=== PATIENT | female | born 1955 | race African-American/Black ===

== ENCOUNTER 2018-08-01 19:55 | Emergency (ER) | payer MEDICAID, OTHER ==
[~2018-08-01] VITALS: Ht 167.6 cm; Wt 82.0 kg
[~2018-08-01 19:55] MED LIST: BIMA2.5D4 EACHEYE; DIPH25CA83 PO; DIVA500T3 PO; GABA-531 PO; HYDR-4134 PO; LURA80TA PO
[2018-08-01] MEDS ORDERED: SODIUM CHLORIDE 0.9% 1,000 ML IV ONE (20:38)
[2018-08-01] MEDS ORDERED: MORPHINE SULFATE 4 MG/ML CPJ (NOT FOR IM USE) IV STA (20:38)
[2018-08-01] MEDS ORDERED: ONDANSETRON HCL 4MG/2ML INJ IV STA (20:38)
[2018-08-01] MEDS ORDERED: MORPHINE SULFATE 10 MG/ML CPJ IV STA (21:22)
[2018-08-01 21:59] LABS: BASOPHILS % 0.7 % (0.0-2.0); EOSINOPHILS % 1.5 % (0.0-5.0); HEMATOCRIT. 39.6 % (36.0-48.0); HEMOGLOBIN. 13.3 g/dL (12.0-16.0); LYMPHOCYTES % 17.2 % (20.0-50.0); MEAN CORPUSCULAR HEMOGLOBIN 28.8 pg (28.0-32.0); MEAN CORPUSCULAR VOLUME 85.6 fL (81.0-99.0); MEAN PLATELET VOLUME 8.6 fl (7.4-10.4); MONOCYTES % 9.4 % (2.0-8.0); NEUTROPHILS % 71.2 % (40.0-76.0); PLATELET 302 x1000/uL (130-400); RED BLOOD CELL COUNT 4.63 mill/uL (4.2-5.4); RED CELL DISTRIBUTION WIDTH 16.4 % (11.6-14.6)
[2018-08-01 22:05] LABS: CHLORIDE 103 mEq/L (98-107)
[2018-08-01 22:08] LABS: INR 1.1; PROTHROMBIN TIME 10.8 sec (9.1-11.1)
[2018-08-01 22:09] LABS: ETHANOL BLOOD < 10 mg/dL
[2018-08-01] MEDS ORDERED: POTASSIUM CHLORIDE 20MEQ TABLET SR PO ONE (22:45)
[2018-08-01] MEDS ORDERED: POTASSIUM CHLORIDE INJ 40 MEQ in DEXT 5% WATER 250 ML IV ONE (23:00)
[2018-08-02] MEDS ORDERED: ONDANSETRON HCL 4MG/2ML INJ IV ONE (00:30)
[2018-08-02 01:21] VITALS: BP 160/87
== END 2018-08-02 03:11 | disposition short-term general hospital (02) ==
LOC: ER 19:55 → CANBEDREQ 08-02 06:00
DX: E87.6 Hypokalemia (principal); M54.9 Dorsalgia, unspecified; R11.2 Nausea with vomiting, unspecified; N17.9 Acute kidney failure, unspecified; F31.9 Bipolar disorder, unspecified; J44.9 Chronic obstructive pulmonary disease, unspecified; I10 Essential (primary) hypertension; F17.200 Nicotine dependence, unspecified, uncomplicated; F12.10 Cannabis abuse, uncomplicated; H40.9 Unspecified glaucoma; F14.10 Cocaine abuse, uncomplicated; Z90.710 Acquired absence of both cervix and uterus; Z98.890 Other specified postprocedural states; Z88.8 Allergy status to other drugs, medicaments and biological substances; Z79.899 Other long term (current) drug therapy
CPT/HCPCS: 36415; 71250; 74176; 80053; 80165; 83690; 85025; 85610; 96361; 96365; 96366; 96375; 96376; 99285; G0482; J2270; J2405; J3480; J7030; J7060

== ENCOUNTER 2018-09-22 14:29 | Emergency (ER) | payer MEDICAID, OTHER ==
[~2018-09-22] VITALS: Ht 172.7 cm; Wt 65.0 kg
[2018-09-22] MEDS ORDERED: SODIUM CHLORIDE 0.9% 1,000 ML IV ONE (22:40)
[2018-09-22] MEDS ORDERED: ONDANSETRON HCL 4MG/2ML INJ IV STA (22:40)
[2018-09-22] MEDS ORDERED: MECLIZINE 25MG TABLET PO ONE (22:45)
[2018-09-22 23:33] LABS: BASOPHILS % 1.2 % (0.0-2.0); EOSINOPHILS % 3.3 % (0.0-5.0); HEMATOCRIT. 40.9 % (36.0-48.0); HEMOGLOBIN. 13.6 g/dL (12.0-16.0); LYMPHOCYTES % 36.9 % (20.0-50.0); MEAN CORPUSCULAR VOLUME 84.4 fL (81.0-99.0); MEAN PLATELET VOLUME 7.7 fl (7.4-10.4); MONOCYTES % 11.6 % (2.0-8.0); PLATELET 368 x1000/uL (130-400); RED BLOOD CELL COUNT 4.84 mill/uL (4.2-5.4); RED CELL DISTRIBUTION WIDTH 18.7 % (11.6-14.6)
[2018-09-22 23:37] LABS: INR 1.1; PARTIAL THROMBOPLASTIN TIME 25.9 sec (23.4-31.0); PROTHROMBIN TIME 10.7 sec (9.1-11.1)
[2018-09-23 01:08] LABS: CHLORIDE 109 mEq/L (98-107)
[2018-09-23 01:12] LABS: ETHANOL BLOOD < 10 mg/dL
[2018-09-23 03:39] VITALS: BP 116/68
== END 2018-09-23 03:43 | disposition home or self-care (01) ==
LOC: ER 14:29
DX: R42 Dizziness and giddiness (principal); R55 Syncope and collapse; R11.10 Vomiting, unspecified; J44.9 Chronic obstructive pulmonary disease, unspecified; I10 Essential (primary) hypertension; F17.200 Nicotine dependence, unspecified, uncomplicated; F31.9 Bipolar disorder, unspecified; Z71.6 Tobacco abuse counseling; Z88.8 Allergy status to other drugs, medicaments and biological substances; Z90.710 Acquired absence of both cervix and uterus; Z91.013 Allergy to seafood; Z91.048 Other nonmedicinal substance allergy status
CPT/HCPCS: 36415; 70450; 71045; 80053; 80165; 83690; 83735; 83880; 84484; 85025; 85610; 85730; 87186; 93005; 96361; 96374; 99284; 99406; J2405; J7030; J8597; Z7610

== ENCOUNTER 2019-02-14 12:45 | Inpatient (IN) | payer MEDICAID ==
[~2019-02-14] VITALS: Ht 167.6 cm; Wt 80.7 kg
[2019-02-14] MEDS ORDERED: KETOROLAC 30MG/ML VIAL IV ONE (14:00)
[2019-02-14 14:24] LABS: BASOPHILS % 1.5 % (0.0-2.0); EOSINOPHILS % 2.3 % (0.0-5.0); HEMATOCRIT. 44.1 % (36.0-48.0); HEMOGLOBIN. 14.6 g/dL (12.0-16.0); LYMPHOCYTES % 25.5 % (20.0-50.0); MEAN CORPUSCULAR VOLUME 84.9 fL (81.0-99.0); MEAN PLATELET VOLUME 7.2 fl (7.4-10.4); MONOCYTES % 6.6 % (2.0-8.0); NEUTROPHILS % 64.1 % (40.0-76.0); PLATELET 527 x1000/uL (130-400)
[2019-02-14 14:31] LABS: CHLORIDE 107 mEq/L (98-107)
[2019-02-14] MEDS ORDERED: CLONIDINE 0.1MG TABLET PO PRN ×2 (15:00→16:15)
[2019-02-14 15:46] LABS: PARTIAL THROMBOPLASTIN TIME 24.3 sec (23.4-31.0); PROTHROMBIN TIME 9.8 sec (9.6-11.0)
[2019-02-14] MEDS ORDERED: ONDANSETRON HCL 4MG/2ML INJ IV PRN (16:00)
[2019-02-14] MEDS ORDERED: LACTULOSE 20G/30ML UDC PO PRN (16:00)
[2019-02-14] MEDS ORDERED: ACETAMINOPHEN 325MG TABLET PO PRN (16:00)
[2019-02-14] MEDS ORDERED: MORPHINE SULFATE 2 MG/ML CPJ (NOT FOR IM USE) IV PRN (16:00)
[2019-02-14 16:32] LABS: *AMPHETAMINES SCREEN URINE NEGATIVE (NEGATIVE); *BARBITURATES SCREEN URINE NEGATIVE (NEGATIVE); *BENZODIAZEPINES SCREEN URINE NEGATIVE (NEGATIVE)
[2019-02-14 16:33] LABS: *COCAINE SCREEN URINE PRESUMTIVE POSITIVE (NEGATIVE); CANNABINOID URINE SCREEN PRESUMTIVE POSITIVE (NEGATIVE); METHADONE URINE SCREEN NEGATIVE (NEGATIVE); OPIATES URINE SCREEN NEGATIVE (NEGATIVE); PHENCYCLIDINE URINE SCREEN NEGATIVE (NEGATIVE)
[2019-02-14 20:30] VITALS: BP 151/88
[2019-02-14] MEDS ORDERED: DEXT 5%/LACTATED RINGERS 1,000 ML IV SCH (20:30)
[2019-02-14 21:00] VITALS: BP 151/88
[2019-02-14] MEDS: DOCUSATE SODIUM 100MG CAPSULE PO SCH (22:10)
[2019-02-14] MEDS: DEXAMETHASONE 4MG/ML 1ML VIAL IV SCH (22:10)
[2019-02-14] MEDS ORDERED: POTASSIUM CHLORIDE INJ 40 MEQ in DEXT 5% WATER 250 ML IV SCH (23:00)
[2019-02-15] VITALS (64 sets, daily range): BP systolic 112–190; BP diastolic 22–131
[2019-02-15] MEDS: DEXAMETHASONE 4MG/ML 1ML VIAL IV SCH ×4 (03:49→22:10)
[2019-02-15] MEDS ORDERED: THROMBIN (BOVINE) 5000 UNITS/VIAL TOP ONE ×2 (06:33→06:34)
[2019-02-15] MEDS ORDERED: LIDOCAINE HCL/EPINEPHRINE 1%-EPI 1:100,000 20 ML VIAL ONE (06:34)
[2019-02-15] MEDS ORDERED: BACITRACIN 50,000 UNITS/VIAL ONE (06:34)
[2019-02-15] MEDS ORDERED: ROCURONIUM BROMIDE 10MG/ML VIAL 5ML IV ONE ×2 (06:59→07:03)
[2019-02-15] MEDS ORDERED: FENTANYL CITRATE/PF 50MCG/ML 2ML VIAL ONE ×3 (06:59→07:44)
[2019-02-15] MEDS ORDERED: CEFAZOLIN SODIUM 1000MG/VIAL ONE (07:00)
[2019-02-15] MEDS ORDERED: ONDANSETRON HCL 4MG/2ML INJ ONE (07:00)
[2019-02-15] MEDS ORDERED: NEOSTIGMINE METHYLSULFATE 1MG/ML 10 ML VIAL ONE (07:00)
[2019-02-15] MEDS ORDERED: SODIUM CHLORIDE 0.9% 10ML VIAL ONE (07:00)
[2019-02-15] MEDS ORDERED: MIDAZOLAM HCL 2 MG/2 ML VIAL ONE (07:00)
[2019-02-15] MEDS ORDERED: GLYCOPYRROLATE 0.2 MG/ML 2ML VIAL ONE (07:00)
[2019-02-15] MEDS ORDERED: PHENYLEPHRINE HCL 10 MG/ML 1ML (IV VIAL) IV ONE (07:00)
[2019-02-15] MEDS ORDERED: EPHEDRINE SULFATE 50MG/ML VIAL ONE (07:00)
[2019-02-15] MEDS ORDERED: PROPOFOL 200MG/20ML VIAL IV ONE ×2 (07:00→07:46)
[2019-02-15] MEDS ORDERED: SUCCINYLCHOLINE CHLORIDE 200MG/10ML IV ONE (07:00)
[2019-02-15] MEDS ORDERED: METOCLOPRAMIDE HCL 10MG/2ML VIAL ONE (07:00)
[2019-02-15] MEDS ORDERED: LIDOCAINE HCL/PF 1% 10 MG/ML 5ML VIAL ONE (07:00)
[2019-02-15] MEDS ORDERED: DEXAMETHASONE 4MG/ML 1ML VIAL ONE (07:00)
[2019-02-15] MEDS: DEXT 5%/LACTATED RINGERS 1,000 ML IV SCH ×3 (07:15→23:15)
[2019-02-15] MEDS ORDERED: LABETALOL HCL 5MG/ML VIAL 20ML IV ONE (07:27)
[2019-02-15 07:48] LABS: CHLORIDE 108 mEq/L (98-107)
[2019-02-15 07:56] LABS: BASOPHILS % 0.4 % (0.0-2.0); HEMATOCRIT. 41.3 % (36.0-48.0); HEMOGLOBIN. 13.7 g/dL (12.0-16.0); LYMPHOCYTES % 12.6 % (20.0-50.0); MEAN CORPUSCULAR HEMOGLOBIN 27.8 pg (28.0-32.0); MEAN CORPUSCULAR VOLUME 83.9 fL (81.0-99.0); MEAN PLATELET VOLUME 7.7 fl (7.4-10.4); PLATELET 520 x1000/uL (130-400); RED BLOOD CELL COUNT 4.92 mill/uL (4.2-5.4); RED CELL DISTRIBUTION WIDTH 19.3 % (11.6-14.6)
[2019-02-15] MEDS ORDERED: DIPHENHYDRAMINE 25MG CAPSULE PO PRN (08:00)
[2019-02-15] MEDS: DOCUSATE SODIUM 100MG CAPSULE PO SCH ×2 (09:00→17:26)
[2019-02-15] MEDS ORDERED: HYDRALAZINE 20MG/ML VIAL ONE (09:23)
[2019-02-15] MEDS: MORPHINE SULFATE 4 MG/ML CPJ (NOT FOR IM USE) IV PRN ×2 (09:48→14:18)
[2019-02-15] MEDS: NICARDIPINE 100 MG in SODIUM CHLORIDE 0.9% 60 ML IV PRN ×2 (10:14→17:12)
[2019-02-15] MEDS ORDERED: NALOXONE INJ IV PRN (10:45)
[2019-02-15] MEDS ORDERED: ONDANSETRON INJ IV PRN (10:45)
[2019-02-15] MEDS ORDERED: DIPHENHYDRAMINE INJ IV PRN (10:45)
[2019-02-15] MEDS: GABAPENTIN 300MG CAPSULE PO SCH ×2 (10:47→17:26)
[2019-02-15] MEDS: METOPROLOL TARTRATE 50MG TABLET PO SCH ×2 (10:47→13:51)
[2019-02-15] MEDS ORDERED: HYDROMORPHONE PCA 10MG/50ML IV PRN (11:30)
[2019-02-15] MEDS ORDERED: PNEUMOCOCCAL 23-VAL P-SAC VAC 0.5 ML IM ONE (12:00)
[2019-02-15] MEDS: LOSARTAN POTASSIUM 100 MG TABLET PO SCH ×2 (12:30→13:52)
[2019-02-15] MEDS: CEFAZOLIN 1000MG PREMIX 50 ML IV SCH ×2 (13:51→22:10)
[2019-02-15] MEDS ORDERED: CEFAZOLIN SODIUM 1000MG/VIAL IV SCH (14:00)
[2019-02-15] MEDS: AMLODIPINE 5MG TABLET PO SCH (22:09)
[2019-02-16] VITALS (90 sets, daily range): BP systolic 70–218; BP diastolic 45–210
[2019-02-16] MEDS: NICARDIPINE 100 MG in SODIUM CHLORIDE 0.9% 60 ML IV PRN ×3 (00:48→17:07)
[2019-02-16] MEDS: DEXAMETHASONE 4MG/ML 1ML VIAL IV SCH ×4 (03:19→21:53)
[2019-02-16] MEDS: MORPHINE SULFATE 4 MG/ML CPJ (NOT FOR IM USE) IV PRN ×2 (03:19→18:51)
[2019-02-16 05:34] LABS: HEMATOCRIT. 36.8 % (36.0-48.0); HEMOGLOBIN. 12.1 g/dL (12.0-16.0); MEAN CORPUSCULAR HEMOGLOBIN 27.9 pg (28.0-32.0); MEAN CORPUSCULAR VOLUME 84.4 fL (81.0-99.0); MEAN PLATELET VOLUME 7.6 fl (7.4-10.4); PLATELET 483 x1000/uL (130-400); RED BLOOD CELL COUNT 4.36 mill/uL (4.2-5.4); RED CELL DISTRIBUTION WIDTH 19.1 % (11.6-14.6)
[2019-02-16 05:44] LABS: CHLORIDE 109 mEq/L (98-107)
[2019-02-16] MEDS: CEFAZOLIN 1000MG PREMIX 50 ML IV SCH ×3 (06:41→22:07)
[2019-02-16] MEDS: DEXT 5%/LACTATED RINGERS 1,000 ML IV SCH ×3 (07:15→23:15)
[2019-02-16] MEDS: METOPROLOL TARTRATE 50MG TABLET PO SCH ×2 (07:51→21:56)
[2019-02-16] MEDS: DOCUSATE SODIUM 100MG CAPSULE PO SCH ×2 (07:51→17:06)
[2019-02-16] MEDS: GABAPENTIN 300MG CAPSULE PO SCH ×2 (07:52→17:06)
[2019-02-16] MEDS: AMLODIPINE 5MG TABLET PO SCH (07:52)
[2019-02-16] MEDS: NIFEDIPINE XL 60MG TAB PO SCH ×2 (11:04→21:54)
[2019-02-16 11:46] LABS: PLATELET ESTIMATE INCREASED
[2019-02-17] VITALS (40 sets, daily range): BP systolic 107–199; BP diastolic 19–122
[2019-02-17] MEDS: HYDROCODONE/ACETAMINOPHEN 5/325MG TABLET PO PRN (01:26)
[2019-02-17] MEDS: DEXAMETHASONE 4MG/ML 1ML VIAL IV SCH ×4 (02:39→21:29)
[2019-02-17 05:20] LABS: HEMATOCRIT. 35.9 % (36.0-48.0); HEMOGLOBIN. 11.9 g/dL (12.0-16.0); MEAN CORPUSCULAR VOLUME 84.8 fL (81.0-99.0); MEAN PLATELET VOLUME 7.8 fl (7.4-10.4); PLATELET 443 x1000/uL (130-400); RED BLOOD CELL COUNT 4.24 mill/uL (4.2-5.4); RED CELL DISTRIBUTION WIDTH 19.3 % (11.6-14.6)
[2019-02-17 05:33] LABS: CHLORIDE 109 mEq/L (98-107)
[2019-02-17] MEDS: CEFAZOLIN 1000MG PREMIX 50 ML IV SCH ×2 (05:54→14:23)
[2019-02-17] MEDS: DOCUSATE SODIUM 100MG CAPSULE PO SCH ×2 (08:34→17:17)
[2019-02-17] MEDS: NIFEDIPINE XL 60MG TAB PO SCH ×2 (08:35→21:29)
[2019-02-17] MEDS: GABAPENTIN 300MG CAPSULE PO SCH ×2 (08:36→17:17)
[2019-02-17] MEDS: LOSARTAN POTASSIUM 100 MG TABLET PO SCH (08:36)
[2019-02-17] MEDS: METOPROLOL TARTRATE 50MG TABLET PO SCH ×2 (10:34→21:29)
[2019-02-17] MEDS: DEXT 5%/LACTATED RINGERS 1,000 ML IV SCH (14:13)
[2019-02-17 15:36] LABS: PLATELET ESTIMATE INCREASED
[2019-02-18] VITALS: BP 125/67
[2019-02-18] MEDS: DEXAMETHASONE 4MG/ML 1ML VIAL IV SCH ×4 (03:14→21:22)
[2019-02-18 04:00] VITALS: BP 122/66
[2019-02-18 07:12] LABS: CHLORIDE 106 mEq/L (98-107)
[2019-02-18 07:13] LABS: BASOPHILS % 0.2 % (0.0-2.0); HEMATOCRIT. 37.9 % (36.0-48.0); HEMOGLOBIN. 12.7 g/dL (12.0-16.0); LYMPHOCYTES % 7.9 % (20.0-50.0); MEAN CORPUSCULAR HEMOGLOBIN 28.3 pg (28.0-32.0); MEAN PLATELET VOLUME 8.1 fl (7.4-10.4); MONOCYTES % 7.2 % (2.0-8.0); NEUTROPHILS % 84.7 % (40.0-76.0); PLATELET 460 x1000/uL (130-400); RED BLOOD CELL COUNT 4.51 mill/uL (4.2-5.4); RED CELL DISTRIBUTION WIDTH 19.2 % (11.6-14.6)
[2019-02-18 08:00] VITALS: BP 128/74
[2019-02-18] MEDS: GABAPENTIN 300MG CAPSULE PO SCH ×2 (08:42→16:12)
[2019-02-18] MEDS: NIFEDIPINE XL 60MG TAB PO SCH ×2 (08:43→21:22)
[2019-02-18] MEDS: DOCUSATE SODIUM 100MG CAPSULE PO SCH ×2 (08:43→16:12)
[2019-02-18] MEDS: LOSARTAN POTASSIUM 100 MG TABLET PO SCH (08:44)
[2019-02-18] MEDS: METOPROLOL TARTRATE 50MG TABLET PO SCH ×2 (08:44→21:21)
[2019-02-18 12:00] VITALS: BP 127/71
[2019-02-18 16:00] VITALS: BP 141/80
[2019-02-18] MEDS: HYDROCODONE/ACETAMINOPHEN 5/325MG TABLET PO PRN (16:13)
[2019-02-18] MEDS ORDERED: HYDROCODONE/ACETAMINOPHEN 5/325MG TABLET PO PRN (17:44)
[2019-02-18] MEDS ORDERED: LACTULOSE 20G/30ML UDC PO PRN (17:45)
[2019-02-18] MEDS: MORPHINE SULFATE 4 MG/ML CPJ (NOT FOR IM USE) IV PRN ×2 (17:45→22:01)
[2019-02-18] MEDS ORDERED: MORPHINE SULFATE 2 MG/ML CPJ (NOT FOR IM USE) IV PRN (17:45)
[2019-02-18] MEDS: FAMOTIDINE 20MG/2ML VIAL IV SCH (17:46)
[2019-02-18 20:00] VITALS: BP 128/67
[2019-02-19] VITALS: BP 126/67
[2019-02-19] MEDS: DEXAMETHASONE 4MG/ML 1ML VIAL IV SCH ×2 (03:22→09:19)
[2019-02-19] MEDS: MORPHINE SULFATE 4 MG/ML CPJ (NOT FOR IM USE) IV PRN ×2 (03:24→09:21)
[2019-02-19 04:00] VITALS: BP 116/80
[2019-02-19] MEDS: FAMOTIDINE 20MG/2ML VIAL IV SCH (09:20)
[2019-02-19] MEDS: LOSARTAN POTASSIUM 100 MG TABLET PO SCH (09:21)
[2019-02-19] MEDS: DOCUSATE SODIUM 100MG CAPSULE PO SCH (09:21)
[2019-02-19] MEDS: NIFEDIPINE XL 60MG TAB PO SCH (09:21)
[2019-02-19] MEDS: GABAPENTIN 300MG CAPSULE PO SCH (09:21)
[2019-02-19] MEDS: METOPROLOL TARTRATE 50MG TABLET PO SCH (09:22)
[2019-02-19 10:44] VITALS: BP 156/88
[2019-02-19 12:00] VITALS: BP 147/74
== END 2019-02-19 12:39 | disposition home or self-care (01) | DRG 321 ==
LOC: ER 12:57 → 5WST 14:21 → ENRESERV 19:21 → MICUNO 02-15 09:24 → 6EST 02-17 10:45
PROVIDERS: ADMIT Internal Medicine; ATTEND Internal Medicine
PROC: 0RG2071 Fusion of 2 or more Cervical Vertebral Joints with Autologous Tissue Substitute, Posterior Approach, Posterior Column, Open Approach (ICD-10-PCS; principal; 2019-02-15)
PROC: 01N10ZZ Release Cervical Nerve, Open Approach (ICD-10-PCS; 2019-02-15)
PROC: 4A11X4G Monitoring of Peripheral Nervous Electrical Activity, Intraoperative, External Approach (ICD-10-PCS; 2019-02-15)
PROC: BR101ZZ Fluoroscopy of Cervical Spine using Low Osmolar Contrast (ICD-10-PCS; 2019-02-15)
DX: M48.02 Spinal stenosis, cervical region (principal); G82.50 Quadriplegia, unspecified; G99.2 Myelopathy in diseases classified elsewhere; I10 Essential (primary) hypertension; M54.12 Radiculopathy, cervical region; E87.6 Hypokalemia; F31.9 Bipolar disorder, unspecified; F14.90 Cocaine use, unspecified, uncomplicated; F12.90 Cannabis use, unspecified, uncomplicated; F17.210 Nicotine dependence, cigarettes, uncomplicated; Z60.2 Problems related to living alone; Z90.710 Acquired absence of both cervix and uterus; Z88.8 Allergy status to other drugs, medicaments and biological substances; Z91.013 Allergy to seafood; Z91.048 Other nonmedicinal substance allergy status; Z79.899 Other long term (current) drug therapy; Z71.51 Drug abuse counseling and surveillance of drug abuser
CPT/HCPCS: 36415; 71045; 72040; 72141; 76000; 80048; 80165; 80305; 83036; 83880; 84132; 84484; 88304; 88311; 93005; 96374; 96375; 97110; 97116; 97162; 97166; 97530; 97535; 99285; C1713; J0330; J0360; J0690; J1100; J1200; J1885; J2250; J2270; J2370; J2405; J2704; J2710; J2765; J3010; J3480; J3490; J7040; J7050; J7060; J7121; L0172

== ENCOUNTER 2019-07-06 13:10 | Emergency (ER) | payer MEDICAID ==
[~2019-07-06] VITALS: Ht 162.6 cm; Wt 65.0 kg
[~2019-07-06 13:10] MED LIST changes: -HYDR-4134 PO
[2019-07-06 14:30] LABS: BASOPHILS % 1.3 % (0.0-2.0); EOSINOPHILS % 5.3 % (0.0-5.0); HEMATOCRIT. 36.2 % (36.0-48.0); HEMOGLOBIN. 12.4 g/dL (12.0-16.0); LYMPHOCYTES % 35.9 % (20.0-50.0); MEAN CORPUSCULAR HEMOGLOBIN 28.8 pg (28.0-32.0); MEAN CORPUSCULAR VOLUME 84.3 fL (81.0-99.0); MEAN PLATELET VOLUME 7.4 fl (7.4-10.4); MONOCYTES % 11.8 % (2.0-8.0); NEUTROPHILS % 45.7 % (40.0-76.0); PLATELET 362 x1000/uL (130-400); RED BLOOD CELL COUNT 4.29 mill/uL (4.2-5.4); RED CELL DISTRIBUTION WIDTH 17.9 % (11.6-14.6)
[2019-07-06 14:37] LABS: CHLORIDE 109 mEq/L (98-107); PROTHROMBIN TIME 10.2 sec (9.6-11.0)
[2019-07-06 14:47] LABS: CLARITY URINE CLEAR (CLEAR); COLOR URINE YELLOW (YELLOW); KETONES URINE NEGATIVE (NEGATIVE); LEUKOCYTE ESTERASE URINE NEGATIVE (NEGATIVE); NITRITE URINE NEGATIVE (NEGATIVE); OCCULT BLOOD URINE 1+ (NEGATIVE); PROTEIN URINE 2+ (NEGATIVE); SPECIFIC GRAVITY URINE 1.006 (1.005-1.030); UROBILINOGEN URINE 0.2 E.U./dL (0.2-1.0)
[2019-07-06] MEDS ORDERED: MINERAL OIL ENEMA 133ML PR ONE (16:15)
[2019-07-06 18:38] VITALS: BP 132/71
== END 2019-07-06 18:45 | disposition home or self-care (01) ==
LOC: ER 13:10
DX: M48.061 Spinal stenosis, lumbar region without neurogenic claudication (principal); K56.41 Fecal impaction; E88.09 Other disorders of plasma-protein metabolism, not elsewhere classified; R20.2 Paresthesia of skin; J44.9 Chronic obstructive pulmonary disease, unspecified; I10 Essential (primary) hypertension; Z90.710 Acquired absence of both cervix and uterus; Z79.899 Other long term (current) drug therapy; Z88.8 Allergy status to other drugs, medicaments and biological substances
CPT/HCPCS: 36415; 74176; 81003; 99284

== ENCOUNTER 2019-07-14 04:58 | Emergency (ER) | payer MEDICAID ==
[~2019-07-14] VITALS: Ht 167.6 cm; Wt 79.0 kg
[2019-07-14] MEDS ORDERED: KETOROLAC 30MG/ML VIAL IV STA (06:26)
[2019-07-14] MEDS ORDERED: NA PHOS,M-B/NA PHOS,DI-BA ENEMA 118ML PR ONE (06:30)
[2019-07-14] MEDS ORDERED: LACTULOSE 20G/30ML UDC PO ONE (06:30)
[2019-07-14] MEDS ORDERED: MAGNESIUM CITRATE 300ML SOLUTION PO ONE (06:30)
[2019-07-14 07:31] LABS: BASOPHILS % 0.4 % (0.0-2.0); EOSINOPHILS % 3.5 % (0.0-5.0); HEMATOCRIT. 35.7 % (36.0-48.0); HEMOGLOBIN. 12.1 g/dL (12.0-16.0); LYMPHOCYTES % 22.9 % (20.0-50.0); MEAN CORPUSCULAR HEMOGLOBIN 28.6 pg (28.0-32.0); MEAN CORPUSCULAR VOLUME 83.8 fL (81.0-99.0); MEAN PLATELET VOLUME 8.3 fl (7.4-10.4); MONOCYTES % 12.8 % (2.0-8.0); NEUTROPHILS % 60.4 % (40.0-76.0); PLATELET 349 x1000/uL (130-400); RED BLOOD CELL COUNT 4.25 mill/uL (4.2-5.4); RED CELL DISTRIBUTION WIDTH 18.1 % (11.6-14.6)
[2019-07-14 07:35] LABS: CHLORIDE 108 mEq/L (98-107); PROTHROMBIN TIME 9.8 sec (9.6-11.0)
[2019-07-14 08:06] LABS: CLARITY URINE CLEAR (CLEAR); COLOR URINE YELLOW (YELLOW); KETONES URINE NEGATIVE (NEGATIVE); LEUKOCYTE ESTERASE URINE NEGATIVE (NEGATIVE); NITRITE URINE NEGATIVE (NEGATIVE); OCCULT BLOOD URINE TRACE (NEGATIVE); PROTEIN URINE TRACE (NEGATIVE); SPECIFIC GRAVITY URINE 1.004 (1.005-1.030); UROBILINOGEN URINE 0.2 E.U./dL (0.2-1.0)
[2019-07-14 09:00] VITALS: BP 132/90
== END 2019-07-14 09:25 | disposition home or self-care (01) ==
LOC: ER 04:58
DX: R10.84 Generalized abdominal pain (principal); K59.00 Constipation, unspecified; R20.0 Anesthesia of skin; J44.9 Chronic obstructive pulmonary disease, unspecified; I10 Essential (primary) hypertension; F17.200 Nicotine dependence, unspecified, uncomplicated; M19.90 Unspecified osteoarthritis, unspecified site; Z90.710 Acquired absence of both cervix and uterus; Z79.899 Other long term (current) drug therapy; Z88.8 Allergy status to other drugs, medicaments and biological substances
CPT/HCPCS: 36415; 74176; 80053; 81003; 81025; 83690; 85025; 85610; 96374; 99284; J1885; Z7610

== ENCOUNTER 2019-11-07 10:36 | Emergency (ER) | payer MEDICARE, OTHER ==
[~2019-11-07] VITALS: Ht 172.7 cm; Wt 82.0 kg
[2019-11-07] MEDS ORDERED: ONDANSETRON HCL 4MG/2ML INJ IV STA (11:13)
[2019-11-07] MEDS ORDERED: MORPHINE SULFATE 4 MG/ML CPJ (NOT FOR IM USE) IV STA (11:13)
[2019-11-07 12:22] LABS: CHLORIDE 109 mEq/L (98-107)
[2019-11-07 12:24] LABS: BASOPHILS % 1.3 % (0.0-2.0); EOSINOPHILS % 2.7 % (0.0-5.0); HEMATOCRIT. 39.3 % (36.0-48.0); HEMOGLOBIN. 13.3 g/dL (12.0-16.0); LYMPHOCYTES % 31.4 % (20.0-50.0); MEAN CORPUSCULAR HEMOGLOBIN 28.2 pg (28.0-32.0); MEAN CORPUSCULAR VOLUME 83.4 fL (81.0-99.0); MEAN PLATELET VOLUME 8.2 fl (7.4-10.4); MONOCYTES % 10.9 % (2.0-8.0); NEUTROPHILS % 53.7 % (40.0-76.0); PLATELET 369 x1000/uL (130-400); PROTHROMBIN TIME 10.8 sec (9.6-11.0); RED BLOOD CELL COUNT 4.71 mill/uL (4.2-5.4); RED CELL DISTRIBUTION WIDTH 18.6 % (11.6-14.6)
[2019-11-07 12:26] LABS: ETHANOL BLOOD < 10 mg/dL
[2019-11-07 12:45] LABS: CLARITY URINE CLEAR (CLEAR); COLOR URINE YELLOW (YELLOW); KETONES URINE NEGATIVE (NEGATIVE); LEUKOCYTE ESTERASE URINE NEGATIVE (NEGATIVE); NITRITE URINE NEGATIVE (NEGATIVE); OCCULT BLOOD URINE TRACE (NEGATIVE); PH URINE 6.5 (4.5-8.0); PROTEIN URINE 2+ (NEGATIVE)
[2019-11-07 12:53] LABS: *AMPHETAMINES SCREEN URINE NEGATIVE (NEGATIVE); *BARBITURATES SCREEN URINE NEGATIVE (NEGATIVE); *BENZODIAZEPINES SCREEN URINE NEGATIVE (NEGATIVE); *COCAINE SCREEN URINE PRESUMTIVE POSITIVE (NEGATIVE)
[2019-11-07 12:55] LABS: OPIATES URINE SCREEN PRESUMTIVE POSITIVE (NEGATIVE)
[2019-11-07 12:56] LABS: PHENCYCLIDINE URINE SCREEN NEGATIVE (NEGATIVE)
[2019-11-07 12:57] LABS: CANNABINOID URINE SCREEN PRESUMTIVE POSITIVE (NEGATIVE); METHADONE URINE SCREEN NEGATIVE (NEGATIVE)
[2019-11-07] MEDS ORDERED: DIPHENHYDRAMINE 50MG/ML VIAL IV ONE (14:45)
[2019-11-07 14:55] VITALS: BP 159/97
== END 2019-11-07 15:48 | disposition short-term general hospital (02) ==
LOC: ER 10:36 → EDBEDREQ 11:18 → ER 15:48 → CANBEDREQ 16:36
DX: I63.9 Cerebral infarction, unspecified (principal); F14.10 Cocaine abuse, uncomplicated; I10 Essential (primary) hypertension; J44.9 Chronic obstructive pulmonary disease, unspecified; F31.9 Bipolar disorder, unspecified; Z90.710 Acquired absence of both cervix and uterus; Z79.899 Other long term (current) drug therapy; Z88.5 Allergy status to narcotic agent; Z91.013 Allergy to seafood; Z88.8 Allergy status to other drugs, medicaments and biological substances
CPT/HCPCS: 36415; 70450; 71045; 80053; 80305; 80320; 81003; 83690; 84484; 85025; 85610; 93005; 96374; 96375; 99285; J1200; J2270; J2405; G0480

== ENCOUNTER 2019-12-31 12:25 | Emergency (ER) | payer MEDICARE, OTHER ==
[~2019-12-31] VITALS: Ht 170.2 cm; Wt 74.0 kg
[2019-12-31 14:04] LABS: EOSINOPHILS % 3.1 % (0.0-5.0); HEMATOCRIT. 36.5 % (36.0-48.0); HEMOGLOBIN. 12.5 g/dL (12.0-16.0); LYMPHOCYTES % 30.4 % (20.0-50.0); MEAN CORPUSCULAR HEMOGLOBIN 29.7 pg (28.0-32.0); MEAN CORPUSCULAR VOLUME 86.4 fL (81.0-99.0); MEAN PLATELET VOLUME 8.6 fl (7.4-10.4); MONOCYTES % 13.7 % (2.0-8.0); NEUTROPHILS % 51.8 % (40.0-76.0); PLATELET 222 x1000/uL (130-400); RED BLOOD CELL COUNT 4.23 mill/uL (4.2-5.4); RED CELL DISTRIBUTION WIDTH 19.2 % (11.6-14.6)
[2019-12-31 14:08] LABS: PROTHROMBIN TIME 11.2 sec (9.6-11.0)
[2019-12-31 14:14] LABS: CHLORIDE 108 mEq/L (98-107)
[2019-12-31 14:17] LABS: ETHANOL BLOOD < 10 mg/dL
[2019-12-31 14:20] LABS: LDL CHOLESTEROL 80 mg/dL (5-100)
[2019-12-31] MEDS ORDERED: ASPIRIN 325MG EC TABLET PO ONE (16:30)
[2019-12-31 18:19] VITALS: BP 129/84
== END 2019-12-31 18:30 | disposition short-term general hospital (02) ==
LOC: ER 12:41 → EDBEDREQSVC 14:33 → EDBEDREQ 14:33 → EDBEDREQTM 14:33 → UNDOADMIN 15:51 → MICUSO 15:51 → EDBEDREQTM 15:53 → EDBEDREQ 15:53 → EDBEDREQTM 15:56 → EDBEDREQ 15:56 → ER 18:30
DX: I63.9 Cerebral infarction, unspecified (principal); I69.351 Hemiplegia and hemiparesis following cerebral infarction affecting right dominant side; I10 Essential (primary) hypertension; J44.9 Chronic obstructive pulmonary disease, unspecified; R56.9 Unspecified convulsions; R53.1 Weakness; M19.90 Unspecified osteoarthritis, unspecified site; F40.240 Claustrophobia; Z79.899 Other long term (current) drug therapy; Z90.710 Acquired absence of both cervix and uterus; Z91.013 Allergy to seafood; Z98.1 Arthrodesis status; Z88.8 Allergy status to other drugs, medicaments and biological substances; Z88.6 Allergy status to analgesic agent
CPT/HCPCS: 36415; 71045; 80053; 80320; 83721; 84484; 85025; 93005; 99285; G0480

== ENCOUNTER 2020-02-05 01:03 | Emergency (ER) | payer MEDICARE, OTHER ==
[~2020-02-05] VITALS: Ht 167.6 cm; Wt 70.0 kg
[2020-02-05 03:35] VITALS: BP 120/78
== END 2020-02-05 03:43 | disposition home or self-care (01) ==
LOC: ER 01:03
DX: R20.2 Paresthesia of skin (principal); I10 Essential (primary) hypertension; J44.9 Chronic obstructive pulmonary disease, unspecified; F31.9 Bipolar disorder, unspecified; F43.10 Post-traumatic stress disorder, unspecified; M19.90 Unspecified osteoarthritis, unspecified site; Z88.8 Allergy status to other drugs, medicaments and biological substances; Z86.73 Personal history of transient ischemic attack (TIA), and cerebral infarction without residual deficits; Z91.013 Allergy to seafood; Z90.710 Acquired absence of both cervix and uterus; Z91.048 Other nonmedicinal substance allergy status
CPT/HCPCS: 99283

== ENCOUNTER 2020-04-03 07:57 | Emergency (ER) | payer MEDICARE, OTHER ==
[~2020-04-03] VITALS: Ht 167.6 cm; Wt 74.0 kg
[2020-04-03] MEDS ORDERED: ibuprofen (08:17)
[2020-04-03] MEDS ORDERED: amlodipine (08:17)
[2020-04-03] MEDS ORDERED: atenolol (08:17)
[2020-04-03] MEDS ORDERED: aspirin (08:17)
[2020-04-03 10:44] LABS: HEMATOCRIT. 34.5 % (36.0-48.0); HEMOGLOBIN. 11.6 g/dL (12.0-16.0); MEAN CORPUSCULAR HEMOGLOBIN 28.3 pg (28.0-32.0); MEAN CORPUSCULAR VOLUME 84.1 fL (81.0-99.0); MEAN PLATELET VOLUME 8.1 fl (7.4-10.4); PLATELET 305 x1000/uL (130-400); RED CELL DISTRIBUTION WIDTH 17.9 % (11.6-14.6)
[2020-04-03 10:52] LABS: CHLORIDE 105 mEq/L (98-107)
[2020-04-03 11:01] LABS: CLARITY URINE CLEAR (CLEAR); COLOR URINE YELLOW (YELLOW); KETONES URINE NEGATIVE (NEGATIVE); LEUKOCYTE ESTERASE URINE NEGATIVE (NEGATIVE); NITRITE URINE NEGATIVE (NEGATIVE); OCCULT BLOOD URINE NEGATIVE (NEGATIVE); PROTEIN URINE TRACE (NEGATIVE); SPECIFIC GRAVITY URINE 1.005 (1.005-1.030); UROBILINOGEN URINE 0.2 E.U./dL (0.2-1.0)
[2020-04-03 12:11] LABS: PLATELET ESTIMATE NORMAL
[2020-04-03] MEDS ORDERED: MAGNESIUM HYDROXIDE 400MG/5ML 30ML UDC PO ONE (14:45)
[2020-04-03 15:00] VITALS: BP 122/78
== END 2020-04-03 15:58 | disposition home or self-care (01) ==
LOC: ER 07:57
DX: R60.0 Localized edema (principal); N28.9 Disorder of kidney and ureter, unspecified; I10 Essential (primary) hypertension; F99 Mental disorder, not otherwise specified; Z86.73 Personal history of transient ischemic attack (TIA), and cerebral infarction without residual deficits; Z88.8 Allergy status to other drugs, medicaments and biological substances; Z91.09 Other allergy status, other than to drugs and biological substances; Z90.710 Acquired absence of both cervix and uterus; Z74.01 Bed confinement status; Z91.013 Allergy to seafood
CPT/HCPCS: 36415; 71045; 80053; 81003; 85025; 93005; 93970; 99285

== ENCOUNTER 2020-04-11 12:45 | Inpatient (IN) | payer MEDICARE, OTHER ==
[2020-04-11] VITALS (13 sets, daily range): BP systolic 64–149; BP diastolic 28–81
[~2020-04-11] VITALS: Ht 160 cm; Wt 78.0 kg
[~2020-04-11 12:45] MED LIST changes: +amlodipine; +aspirin; +atenolol; +ibuprofen
[2020-04-11] MEDS ORDERED: SODIUM CHLORIDE 0.9% 1000ML BAG (SEPSIS BOLUS) IV ONE (14:15)
[2020-04-11] MEDS ORDERED: NOREPINEPHRINE 8MG/250ML PMX 250 ML IV STA (14:37)
[2020-04-11] MEDS ORDERED: PIPERACILLIN/TAZ 3.375G PREMIX 50 ML IV ONE (14:45)
[2020-04-11 15:21] LABS: BASOPHILS % 0.4 % (0.0-2.0); CHLORIDE 100 mEq/L (98-107); EOSINOPHILS % 0.5 % (0.0-5.0); LYMPHOCYTES % 7.4 % (20.0-50.0); MEAN CORPUSCULAR HEMOGLOBIN 28.1 pg (28.0-32.0); MEAN CORPUSCULAR VOLUME 86.6 fL (81.0-99.0); MONOCYTES % 7.5 % (2.0-8.0); NEUTROPHILS % 84.2 % (40.0-76.0); PROTHROMBIN TIME 10.3 sec (9.6-11.0); RED BLOOD CELL COUNT 3.57 mill/uL (4.2-5.4); RED CELL DISTRIBUTION WIDTH 17.4 % (11.6-14.6)
[2020-04-11 15:45] LABS: MEAN PLATELET VOLUME 10.1 fl (7.4-10.4); PLATELET 272 x1000/uL (130-400)
[2020-04-11 16:26] LABS: CLARITY URINE TURBID (CLEAR); COLOR URINE YELLOW (YELLOW); KETONES URINE NEGATIVE (NEGATIVE); LEUKOCYTE ESTERASE URINE 3+ (NEGATIVE); NITRITE URINE NEGATIVE (NEGATIVE); OCCULT BLOOD URINE 3+ (NEGATIVE); PH URINE 6.5 (4.5-8.0); PROTEIN URINE 2+ (NEGATIVE); SPECIFIC GRAVITY URINE 1.014 (1.005-1.030); UROBILINOGEN URINE 0.2 E.U./dL (0.2-1.0)
[2020-04-11] MEDS ORDERED: NOREPINEPHRINE 8MG/250ML PMX 250 ML IV ONE (19:45)
[2020-04-11] MEDS ORDERED: VANCOMYCIN 1250MG in DEXTROSE 5% WATER 250ML IV NR (20:00)
[2020-04-11] MEDS ORDERED: NON FORMULARY PATIENT HOME MED XX SCH ×2 (20:00)
[2020-04-11] MEDS: DIVALPROEX SODIUM 500MG DR TABLET PO SCH ×2 (20:00→21:23)
[2020-04-11] MEDS ORDERED: DOCUSATE SODIUM 100MG CAPSULE PO PRN (20:00)
[2020-04-11] MEDS ORDERED: ONDANSETRON HCL 4MG/2ML INJ IV PRN (20:00)
[2020-04-11] MEDS ORDERED: ACETAMINOPHEN 325MG TABLET PO PRN (20:00)
[2020-04-11] MEDS ORDERED: IPRATROPIUM/ALBUTEROL 0.5-3(2.5)MG/3ML NEB HHN PRN (20:00)
[2020-04-11 20:17] LABS: TOTAL IRON BINDING CAPACITY 281 ug/dL (250-450)
[2020-04-11 20:39] LABS: FERRITIN 168 ng/mL (10-291)
[2020-04-11 20:44] LABS: VITAMIN B12 SERUM 1328 pg/mL (211-911)
[2020-04-11] MEDS ORDERED: NOREPINEPHRINE 8 MG in DEXTROSE 5% WATER 250 ML IV PRN (21:00)
[2020-04-11] MEDS ORDERED: PIPERACILLIN/TAZOBACTAM 3.375 G/VIAL IV SCH (22:00)
[2020-04-11] MEDS: ASPIRIN 81MG TABLET PO SCH (22:51)
[2020-04-11] MEDS: ATORVASTATIN CALCIUM 10MG TABLET PO SCH (22:51)
[2020-04-11] MEDS: LATANOPROST 0.005% OPHTH DROPS 2.5ML EACHEYE SCH (22:51)
[2020-04-12] VITALS (62 sets, daily range): BP systolic 56–152; BP diastolic 32–108
[2020-04-12 00:39] LABS: *AMPHETAMINES SCREEN URINE NEGATIVE (NEGATIVE); *BARBITURATES SCREEN URINE NEGATIVE (NEGATIVE); *BENZODIAZEPINES SCREEN URINE NEGATIVE (NEGATIVE); *COCAINE SCREEN URINE NEGATIVE (NEGATIVE); METHADONE URINE SCREEN NEGATIVE (NEGATIVE); OPIATES URINE SCREEN NEGATIVE (NEGATIVE)
[2020-04-12 00:40] LABS: CANNABINOID URINE SCREEN NEGATIVE (NEGATIVE); PHENCYCLIDINE URINE SCREEN NEGATIVE (NEGATIVE)
[2020-04-12] MEDS ORDERED: NOREPINEPHRINE 8 MG in DEXTROSE 5% WATER 250 ML IV PRN (01:00)
[2020-04-12] MEDS: NOREPINEPHRINE 32 MG in DEXT 5% WATER 218 ML IV PRN ×2 (02:38→19:48)
[2020-04-12] MEDS: PIPERACILLIN/TAZOBACTAM 3.375 G in DEXT 5% WATER 100 ML IV SCH ×2 (05:09→17:13)
[2020-04-12 05:54] LABS: CHLORIDE 103 mEq/L (98-107)
[2020-04-12 05:56] LABS: BASOPHILS % 0.2 % (0.0-2.0); EOSINOPHILS % 0.3 % (0.0-5.0); HEMATOCRIT. 33.1 % (36.0-48.0); HEMOGLOBIN. 10.7 g/dL (12.0-16.0); LYMPHOCYTES % 7.5 % (20.0-50.0); MEAN CORPUSCULAR HEMOGLOBIN 27.9 pg (28.0-32.0); MEAN CORPUSCULAR VOLUME 86.6 fL (81.0-99.0); MEAN PLATELET VOLUME 9.4 fl (7.4-10.4); MONOCYTES % 10.5 % (2.0-8.0); NEUTROPHILS % 81.5 % (40.0-76.0); PLATELET 352 x1000/uL (130-400); RED BLOOD CELL COUNT 3.83 mill/uL (4.2-5.4); RED CELL DISTRIBUTION WIDTH 16.9 % (11.6-14.6)
[2020-04-12] MEDS ORDERED: PIPERACILLIN/TAZOBACTAM 3.375 G in DEXT 5% WATER 100 ML IV SCH (06:00)
[2020-04-12] MEDS ORDERED: SODIUM CHLORIDE 0.9% 1,000 ML IV SCH (09:00)
[2020-04-12] MEDS: DIVALPROEX SODIUM 500MG DR TABLET PO SCH ×2 (09:00→16:27)
[2020-04-12] MEDS: ASPIRIN 81MG TABLET PO SCH (09:13)
[2020-04-12 09:58] LABS: BG BASE EXCESS -7.2 mmol/L (-2.0-2.0); BG CARBOXYHEMOGLOBIN 0.9 % (0.5-1.5); BG DEOXYHEMOGLOBIN 2.8 % (0.0-5.0); BG FRACTION INSPIRED OXYGEN 28; BG HCO3 ACT 21.4 mmol/L (22.0-26.0); BG METHEMOGLOBIN 0.2 % (0.0-1.5); BG OXYGEN SATURATION 97.2 % (92.0-98.5); BG OXYHEMOGLOBIN 96.1 % (94.0-97.0); BG PCO2 57.9 mmHg (35.0-45.0); BG PH 7.185 (7.350-7.450); BG PO2 98.7 mmHg (75.0-100.0); BG SAMPLE SITE RIGHT RADIAL; BG TOTAL HEMOGLOBIN 11.5 g/dL (12.0-18.0); BG VENT MODE NASAL CANNULA
[2020-04-12] MEDS: SODIUM BICARBONATE 100 MEQ in SODIUM CHLORIDE 0.45% 900 ML IV SCH (12:53)
[2020-04-12] MEDS: ATORVASTATIN CALCIUM 10MG TABLET PO SCH (21:31)
[2020-04-12] MEDS: LATANOPROST 0.005% OPHTH DROPS 2.5ML EACHEYE SCH (21:31)
[2020-04-12] MEDS ORDERED: PHENYLEPHRINE 100 MG in DEXT 5% WATER 240 ML IV PRN (22:45)
[2020-04-13] VITALS (66 sets, daily range): BP systolic 97–178; BP diastolic 48–81
[2020-04-13] MEDS: SODIUM BICARBONATE 100 MEQ in SODIUM CHLORIDE 0.45% 900 ML IV SCH (03:35)
[2020-04-13] MEDS: PIPERACILLIN/TAZOBACTAM 3.375 G in DEXT 5% WATER 100 ML IV SCH ×2 (05:19→17:34)
[2020-04-13 06:29] LABS: BASOPHILS % 0.3 % (0.0-2.0); EOSINOPHILS % 2.8 % (0.0-5.0); HEMATOCRIT. 28.8 % (36.0-48.0); HEMOGLOBIN. 9.4 g/dL (12.0-16.0); LYMPHOCYTES % 10.6 % (20.0-50.0); MEAN CORPUSCULAR HEMOGLOBIN 27.7 pg (28.0-32.0); MEAN CORPUSCULAR VOLUME 85.3 fL (81.0-99.0); MEAN PLATELET VOLUME 8.9 fl (7.4-10.4); MONOCYTES % 13.5 % (2.0-8.0); NEUTROPHILS % 72.8 % (40.0-76.0); PLATELET 290 x1000/uL (130-400); RED BLOOD CELL COUNT 3.38 mill/uL (4.2-5.4); RED CELL DISTRIBUTION WIDTH 16.6 % (11.6-14.6)
[2020-04-13 06:32] LABS: PHOSPHORUS 5.7 mg/dL (2.5-4.9)
[2020-04-13] MEDS: SODIUM CHLORIDE 0.9% 1,000 ML IV SCH ×2 (08:40→22:04)
[2020-04-13] MEDS: ASPIRIN 81MG TABLET PO SCH (08:40)
[2020-04-13] MEDS: DIVALPROEX SODIUM 500MG DR TABLET PO SCH ×2 (08:41→09:00)
[2020-04-13] MEDS: MIDODRINE HCL 5MG TABLET PO SCH ×3 (08:41→22:00)
[2020-04-13] MEDS ORDERED: ALBUMIN HUMAN 25GM/100ML (25%) IV SCH (09:00)
[2020-04-13] MEDS ORDERED: POTASSIUM CHLORIDE INJ 40 MEQ in DEXT 5% WATER 250 ML IV SCH (10:00)
[2020-04-13] MEDS ORDERED: VANCOMYCIN 1 G PREMIX 200 ML IV NR (11:30)
[2020-04-13] MEDS: CLONIDINE 0.1MG TABLET PO PRN (19:03)
[2020-04-13] MEDS: HYDROCODONE/ACETAMINOPHEN 5/325MG TABLET PO PRN (20:19)
[2020-04-13] MEDS: ATORVASTATIN CALCIUM 10MG TABLET PO SCH (20:51)
[2020-04-13] MEDS: LATANOPROST 0.005% OPHTH DROPS 2.5ML EACHEYE SCH (20:51)
[2020-04-13] MEDS: DIPHENHYDRAMINE 50MG/ML VIAL IV PRN (22:02)
[2020-04-14] VITALS (91 sets, daily range): BP systolic 134–200; BP diastolic 61–82
[2020-04-14] MEDS: HYDROCODONE/ACETAMINOPHEN 5/325MG TABLET PO PRN ×2 (00:32→11:46)
[2020-04-14] MEDS: CLONIDINE 0.1MG TABLET PO PRN ×2 (01:00→17:26)
[2020-04-14] MEDS: DIPHENHYDRAMINE 50MG/ML VIAL IV PRN ×2 (04:26→13:51)
[2020-04-14] MEDS: NICARDIPINE 50 MG in SODIUM CHLORIDE 0.9% 230 ML IV PRN ×2 (04:30→13:32)
[2020-04-14 04:44] LABS: BASOPHILS % 0.2 % (0.0-2.0); EOSINOPHILS % 1.7 % (0.0-5.0); HEMATOCRIT. 29.9 % (36.0-48.0); HEMOGLOBIN. 9.9 g/dL (12.0-16.0); LYMPHOCYTES % 12.4 % (20.0-50.0); MEAN CORPUSCULAR HEMOGLOBIN 27.8 pg (28.0-32.0); MEAN CORPUSCULAR VOLUME 84.4 fL (81.0-99.0); MEAN PLATELET VOLUME 8.7 fl (7.4-10.4); MONOCYTES % 11.5 % (2.0-8.0); NEUTROPHILS % 74.2 % (40.0-76.0); PLATELET 298 x1000/uL (130-400); RED BLOOD CELL COUNT 3.55 mill/uL (4.2-5.4); RED CELL DISTRIBUTION WIDTH 17.1 % (11.6-14.6)
[2020-04-14 04:53] LABS: CHLORIDE 110 mEq/L (98-107)
[2020-04-14 05:00] LABS: AMYLASE 44 IU/L (25-115)
[2020-04-14 05:03] LABS: PHOSPHORUS 2.2 mg/dL (2.5-4.9)
[2020-04-14 05:05] LABS: CREATINE KINASE 91 IU/L (26-192)
[2020-04-14] MEDS: MIDODRINE HCL 5MG TABLET PO SCH (06:00)
[2020-04-14] MEDS: PIPERACILLIN/TAZOBACTAM 3.375 G in DEXT 5% WATER 100 ML IV SCH ×4 (06:25→23:45)
[2020-04-14] MEDS: SODIUM CHLORIDE 0.9% 1,000 ML IV SCH ×2 (07:48→11:47)
[2020-04-14] MEDS: ASPIRIN 81MG TABLET PO SCH (09:41)
[2020-04-14] MEDS ORDERED: MAGNESIUM 2 G PREMIX 50 ML IV SCH (10:00)
[2020-04-14] MEDS ORDERED: POTASSIUM PHOS,M-BASIC-D-BASIC 15 MMOL in DEXT 5% WATER 245 ML IV SCH (10:00)
[2020-04-14] MEDS ORDERED: LORAZEPAM 2MG/ML CPJ IV PRN (10:45)
[2020-04-14 11:27] LABS: BG BASE EXCESS 2.2 mmol/L (-2.0-2.0); BG CARBOXYHEMOGLOBIN 0.3 % (0.5-1.5); BG DEOXYHEMOGLOBIN 11.3 % (0.0-5.0); BG FRACTION INSPIRED OXYGEN 21; BG HCO3 ACT 27.3 mmol/L (22.0-26.0); BG METHEMOGLOBIN 0.1 % (0.0-1.5); BG OXYGEN SATURATION 88.7 % (92.0-98.5); BG OXYHEMOGLOBIN 88.3 % (94.0-97.0); BG PCO2 44.4 mmHg (35.0-45.0); BG PH 7.406 (7.350-7.450); BG PO2 55.9 mmHg (75.0-100.0); BG SAMPLE SITE RIGHT RADIAL; BG TOTAL HEMOGLOBIN 10.2 g/dL (12.0-18.0); BG VENT MODE ROOM AIR
[2020-04-14] MEDS: ENOXAPARIN 40MG/0.4ML SYR SUBCUT SCH (11:46)
[2020-04-14] MEDS: IRON SUCROSE COMPLEX 100 MG/5 ML ML IV SCH (11:47)
[2020-04-14] MEDS: LOSARTAN POTASSIUM 50 MG TABLET PO SCH ×2 (13:51→21:55)
[2020-04-14] MEDS ORDERED: DILTIAZEM HCL 30MG TABLET PO SCH (14:00)
[2020-04-14] MEDS ORDERED: POTASSIUM CHLORIDE INJ 40 MEQ in DEXT 5% WATER 250 ML IV SCH (15:00)
[2020-04-14] MEDS: DILTIAZEM HCL 60MG TABLET PO SCH ×2 (18:34→21:22)
[2020-04-14] MEDS ORDERED: LOSARTAN POTASSIUM 50 MG TABLET PO SCH (21:00)
[2020-04-14] MEDS ORDERED: LISINOPRIL 10MG TABLET PO SCH (21:00)
[2020-04-14] MEDS: ATORVASTATIN CALCIUM 10MG TABLET PO SCH (21:21)
[2020-04-14] MEDS: LATANOPROST 0.005% OPHTH DROPS 2.5ML EACHEYE SCH (21:21)
[2020-04-14] MEDS ORDERED: DILTIAZEM HCL 30MG TABLET PO NR (22:45)
[2020-04-15] VITALS (55 sets, daily range): BP systolic 117–203; BP diastolic 55–87
[2020-04-15 01:22] LABS: T4 FREE 1.85 ng/dL (0.76-1.46)
[2020-04-15 01:35] LABS: FOLIC ACID (FOLATE) SERUM 5.7 ng/mL (>5.38)
[2020-04-15] MEDS: HALOPERIDOL 0.5MG TABLET PO PRN (02:11)
[2020-04-15] MEDS: DILTIAZEM HCL 90MG TABLET PO SCH ×4 (05:21→23:54)
[2020-04-15] MEDS: PIPERACILLIN/TAZOBACTAM 3.375 G in DEXT 5% WATER 100 ML IV SCH ×4 (05:33→23:09)
[2020-04-15 05:50] LABS: BASOPHILS % 0.6 % (0.0-2.0); HEMATOCRIT. 30.4 % (36.0-48.0); HEMOGLOBIN. 10.2 g/dL (12.0-16.0); MEAN CORPUSCULAR HEMOGLOBIN 27.9 pg (28.0-32.0); MEAN CORPUSCULAR VOLUME 83.5 fL (81.0-99.0); MEAN PLATELET VOLUME 8.3 fl (7.4-10.4); MONOCYTES % 11.8 % (2.0-8.0); NEUTROPHILS % 74.6 % (40.0-76.0); PLATELET 329 x1000/uL (130-400); RED BLOOD CELL COUNT 3.65 mill/uL (4.2-5.4); RED CELL DISTRIBUTION WIDTH 17.1 % (11.6-14.6)
[2020-04-15 05:54] LABS: CHLORIDE 111 mEq/L (98-107)
[2020-04-15 06:00] LABS: PHOSPHORUS 2.7 mg/dL (2.5-4.9)
[2020-04-15] MEDS: NICARDIPINE 50 MG in SODIUM CHLORIDE 0.9% 230 ML IV PRN (07:00)
[2020-04-15] MEDS: ASPIRIN 81MG TABLET PO SCH (07:39)
[2020-04-15] MEDS: LOSARTAN POTASSIUM 50 MG TABLET PO SCH ×2 (07:39→20:29)
[2020-04-15] MEDS: CLONIDINE 0.1MG TABLET PO PRN (07:39)
[2020-04-15] MEDS: SODIUM CHLORIDE 0.9% 1,000 ML IV SCH (08:03)
[2020-04-15] MEDS: ENOXAPARIN 40MG/0.4ML SYR SUBCUT SCH (11:00)
[2020-04-15] MEDS: IRON SUCROSE COMPLEX 100 MG/5 ML ML IV SCH (11:30)
[2020-04-15] MEDS: HYDROCODONE/ACETAMINOPHEN 5/325MG TABLET PO PRN (13:04)
[2020-04-15] MEDS: DIPHENHYDRAMINE 50MG/ML VIAL IV PRN (13:05)
[2020-04-15] MEDS ORDERED: GADOBENATE DIMEGLUMINE 529 MG/ML 10ML IV ONE (13:51)
[2020-04-15] MEDS ORDERED: MAGNESIUM 4 G PREMIX 100 ML IV NR (15:00)
[2020-04-15] MEDS: LATANOPROST 0.005% OPHTH DROPS 2.5ML EACHEYE SCH (20:28)
[2020-04-15] MEDS: DOXAZOSIN MESYLATE 2MG TABLET PO SCH (20:29)
[2020-04-15] MEDS: ATORVASTATIN CALCIUM 10MG TABLET PO SCH (20:29)
[2020-04-16 00:18] VITALS: BP 110/65
[2020-04-16 04:00] VITALS: BP 134/71
[2020-04-16] MEDS: SODIUM CHLORIDE 0.9% 1,000 ML IV SCH (04:03)
[2020-04-16] MEDS: PIPERACILLIN/TAZOBACTAM 3.375 G in DEXT 5% WATER 100 ML IV SCH ×3 (05:00→18:33)
[2020-04-16] MEDS: DILTIAZEM HCL 90MG TABLET PO SCH ×3 (05:26→18:33)
[2020-04-16 05:55] LABS: BASOPHILS % 0.3 % (0.0-2.0); EOSINOPHILS % 2.7 % (0.0-5.0); HEMATOCRIT. 27.7 % (36.0-48.0); HEMOGLOBIN. 9.2 g/dL (12.0-16.0); LYMPHOCYTES % 13.7 % (20.0-50.0); MEAN CORPUSCULAR HEMOGLOBIN 27.6 pg (28.0-32.0); MEAN CORPUSCULAR VOLUME 83.3 fL (81.0-99.0); MEAN PLATELET VOLUME 7.9 fl (7.4-10.4); MONOCYTES % 12.8 % (2.0-8.0); NEUTROPHILS % 70.5 % (40.0-76.0); PLATELET 311 x1000/uL (130-400); RED BLOOD CELL COUNT 3.32 mill/uL (4.2-5.4); RED CELL DISTRIBUTION WIDTH 16.7 % (11.6-14.6)
[2020-04-16 08:00] VITALS: BP 130/63
[2020-04-16 08:08] LABS: CHLORIDE 108 mEq/L (98-107)
[2020-04-16] MEDS: LOSARTAN POTASSIUM 50 MG TABLET PO SCH ×2 (08:08→21:23)
[2020-04-16] MEDS: ASPIRIN 81MG TABLET PO SCH (08:08)
[2020-04-16] MEDS: ACETAMINOPHEN 325MG TABLET PO PRN (08:08)
[2020-04-16 08:16] LABS: PHOSPHORUS 2.8 mg/dL (2.5-4.9)
[2020-04-16] MEDS ORDERED: POTASSIUM CHLORIDE 20MEQ TABLET SR PO SCH (09:00)
[2020-04-16] MEDS ORDERED: POTASSIUM CHLORIDE INJ 40 MEQ in DEXT 5% WATER 250 ML IV SCH (10:00)
[2020-04-16] MEDS ORDERED: IRON SUCROSE COMPLEX 100 MG/5 ML ML IV SCH (11:30)
[2020-04-16 12:00] VITALS: BP 132/76
[2020-04-16] MEDS: IRON SUCROSE COMPLEX 100 MG/5 ML ML IV SCH (12:54)
[2020-04-16] MEDS: ENOXAPARIN 40MG/0.4ML SYR SUBCUT SCH (12:55)
[2020-04-16 15:51] VITALS: BP 128/69
[2020-04-16 20:37] VITALS: BP 132/68
[2020-04-16] MEDS: LATANOPROST 0.005% OPHTH DROPS 2.5ML EACHEYE SCH (21:22)
[2020-04-16] MEDS: DOXAZOSIN MESYLATE 2MG TABLET PO SCH (21:23)
[2020-04-16] MEDS: DIPHENHYDRAMINE 50MG/ML VIAL IV PRN (21:24)
[2020-04-16] MEDS: ATORVASTATIN CALCIUM 10MG TABLET PO SCH (21:24)
[2020-04-17 00:19] VITALS: BP 134/68
[2020-04-17] MEDS: DILTIAZEM HCL 90MG TABLET PO SCH ×4 (01:58→18:29)
[2020-04-17] MEDS: SODIUM CHLORIDE 0.9% 1,000 ML IV SCH ×2 (02:02→12:49)
[2020-04-17 04:00] VITALS: BP 117/62
[2020-04-17 07:34] LABS: BASOPHILS % 0.5 % (0.0-2.0); EOSINOPHILS % 2.5 % (0.0-5.0); HEMATOCRIT. 29.5 % (36.0-48.0); HEMOGLOBIN. 9.8 g/dL (12.0-16.0); LYMPHOCYTES % 13.8 % (20.0-50.0); MEAN CORPUSCULAR VOLUME 84.2 fL (81.0-99.0); MONOCYTES % 10.9 % (2.0-8.0); NEUTROPHILS % 72.3 % (40.0-76.0); PLATELET 362 x1000/uL (130-400); RED BLOOD CELL COUNT 3.51 mill/uL (4.2-5.4); RED CELL DISTRIBUTION WIDTH 17.2 % (11.6-14.6)
[2020-04-17 08:00] VITALS: BP 143/68
[2020-04-17 08:15] LABS: CHLORIDE 110 mEq/L (98-107)
[2020-04-17 08:35] LABS: PHOSPHORUS 2.8 mg/dL (2.5-4.9)
[2020-04-17] MEDS: ASPIRIN 81MG TABLET PO SCH (09:03)
[2020-04-17] MEDS: LOSARTAN POTASSIUM 50 MG TABLET PO SCH ×2 (09:03→21:24)
[2020-04-17] MEDS: ACETAMINOPHEN 325MG TABLET PO PRN ×2 (09:04→21:27)
[2020-04-17] MEDS: ENOXAPARIN 40MG/0.4ML SYR SUBCUT SCH (11:31)
[2020-04-17 12:00] VITALS: BP 149/74
[2020-04-17] MEDS: HALOPERIDOL 0.5MG TABLET PO PRN ×2 (12:47→21:25)
[2020-04-17] MEDS: BISACODYL 10MG SUPP PR SCH (13:00)
[2020-04-17] MEDS ORDERED: DILT360C27 MT (14:25)
[2020-04-17] MEDS ORDERED: LOSA50TA3 PO (14:25)
[2020-04-17] MEDS ORDERED: ASPI-1160 PO (14:25)
[2020-04-17] MEDS ORDERED: DOXA2TAB PO (14:25)
[2020-04-17] MEDS ORDERED: ATOR10TA PO (14:25)
[2020-04-17] MEDS ORDERED: FERR325T6 MT (14:30)
[2020-04-17 16:19] VITALS: BP 140/72
[2020-04-17 20:05] VITALS: BP 146/64
[2020-04-17] MEDS: LATANOPROST 0.005% OPHTH DROPS 2.5ML EACHEYE SCH (21:23)
[2020-04-17] MEDS: MAGNESIUM OXIDE 400MG TABLET PO SCH (21:24)
[2020-04-17] MEDS: DOXAZOSIN MESYLATE 2MG TABLET PO SCH (21:24)
[2020-04-17] MEDS: ATORVASTATIN CALCIUM 10MG TABLET PO SCH (21:24)
[2020-04-17] MEDS: POLYETHYLENE GLYCOL 3350 (17GM) 1 DOSE PACK PO SCH (21:25)
[2020-04-18 00:31] VITALS: BP 142/52
[2020-04-18] MEDS: DILTIAZEM HCL 90MG TABLET PO SCH ×4 (00:35→17:49)
[2020-04-18 04:00] VITALS: BP 108/66
[2020-04-18 08:05] VITALS: BP 127/63
[2020-04-18] MEDS: ASPIRIN 81MG TABLET PO SCH (08:58)
[2020-04-18] MEDS: MAGNESIUM OXIDE 400MG TABLET PO SCH ×2 (08:58→20:37)
[2020-04-18] MEDS: BISACODYL 10MG SUPP PR SCH (09:00)
[2020-04-18] MEDS: LOSARTAN POTASSIUM 50 MG TABLET PO SCH ×2 (09:00→20:38)
[2020-04-18] MEDS: ACETAMINOPHEN 325MG TABLET PO PRN ×2 (10:26→15:25)
[2020-04-18] MEDS: ENOXAPARIN 40MG/0.4ML SYR SUBCUT SCH (11:39)
[2020-04-18 12:07] VITALS: BP 129/72
[2020-04-18] MEDS ORDERED: DOXA2TAB MT (12:25)
[2020-04-18] MEDS ORDERED: DILT360C27 MT (12:25)
[2020-04-18] MEDS ORDERED: ASPI-1158 MT (12:25)
[2020-04-18] MEDS ORDERED: FERR325T6 MT (12:25)
[2020-04-18] MEDS ORDERED: ATOR10TA69 MT (12:25)
[2020-04-18] MEDS ORDERED: LOSA50TA41 MT (12:25)
[2020-04-18] MEDS: SODIUM CHLORIDE 0.9% 1,000 ML IV SCH (14:39)
[2020-04-18] MEDS: DIPHENHYDRAMINE 50MG/ML VIAL IV PRN (15:25)
[2020-04-18 16:08] VITALS: BP 122/64
[2020-04-18 20:05] VITALS: BP 103/58
[2020-04-18] MEDS: LATANOPROST 0.005% OPHTH DROPS 2.5ML EACHEYE SCH (20:36)
[2020-04-18] MEDS: HALOPERIDOL 0.5MG TABLET PO PRN (20:37)
[2020-04-18] MEDS: POLYETHYLENE GLYCOL 3350 (17GM) 1 DOSE PACK PO SCH (20:38)
[2020-04-18] MEDS: DOXAZOSIN MESYLATE 2MG TABLET PO SCH (20:38)
[2020-04-18] MEDS: ATORVASTATIN CALCIUM 10MG TABLET PO SCH (20:38)
[2020-04-19 00:48] VITALS: BP 123/67
[2020-04-19] MEDS: DILTIAZEM HCL 90MG TABLET PO SCH ×4 (00:50→18:27)
[2020-04-19 04:00] VITALS: BP 109/61
[2020-04-19 06:17] LABS: BASOPHILS % 0.5 % (0.0-2.0); EOSINOPHILS % 2.4 % (0.0-5.0); HEMATOCRIT. 28.8 % (36.0-48.0); HEMOGLOBIN. 9.6 g/dL (12.0-16.0); LYMPHOCYTES % 15.5 % (20.0-50.0); MEAN CORPUSCULAR HEMOGLOBIN 27.7 pg (28.0-32.0); MEAN CORPUSCULAR VOLUME 83.4 fL (81.0-99.0); MEAN PLATELET VOLUME 8.1 fl (7.4-10.4); MONOCYTES % 9.8 % (2.0-8.0); NEUTROPHILS % 71.8 % (40.0-76.0); PLATELET 426 x1000/uL (130-400); RED BLOOD CELL COUNT 3.46 mill/uL (4.2-5.4); RED CELL DISTRIBUTION WIDTH 17.2 % (11.6-14.6)
[2020-04-19 06:49] LABS: CHLORIDE 111 mEq/L (98-107)
[2020-04-19 06:57] LABS: PHOSPHORUS 3.5 mg/dL (2.5-4.9)
[2020-04-19 08:00] VITALS: BP 124/71
[2020-04-19] MEDS: BISACODYL 10MG SUPP PR SCH (09:06)
[2020-04-19] MEDS: LOSARTAN POTASSIUM 50 MG TABLET PO SCH ×2 (09:06→21:04)
[2020-04-19] MEDS: MAGNESIUM OXIDE 400MG TABLET PO SCH ×2 (09:06→21:04)
[2020-04-19] MEDS: ASPIRIN 81MG TABLET PO SCH (09:06)
[2020-04-19] MEDS: ACETAMINOPHEN 325MG TABLET PO PRN (09:16)
[2020-04-19] MEDS: ENOXAPARIN 40MG/0.4ML SYR SUBCUT SCH (11:43)
[2020-04-19 12:38] VITALS: BP 114/82
[2020-04-19 15:00] VITALS: BP 131/75
[2020-04-19] MEDS ORDERED: LORAZEPAM 2MG/ML CPJ IV NR (15:15)
[2020-04-19] MEDS ORDERED: GADOBENATE DIMEGLUMINE 529 MG/ML 10ML IV ONE (15:43)
[2020-04-19 20:40] VITALS: BP 118/61
[2020-04-19] MEDS: POLYETHYLENE GLYCOL 3350 (17GM) 1 DOSE PACK PO SCH (21:00)
[2020-04-19] MEDS: ATORVASTATIN CALCIUM 10MG TABLET PO SCH (21:04)
[2020-04-19] MEDS: DOXAZOSIN MESYLATE 2MG TABLET PO SCH (21:04)
[2020-04-19] MEDS: LATANOPROST 0.005% OPHTH DROPS 2.5ML EACHEYE SCH (21:05)
[2020-04-20] VITALS: BP 118/64
[2020-04-20] MEDS ORDERED: MEROPENEM 1,000 MG in SODIUM CHLORIDE 0.9% 100 ML IV SCH ×2
[2020-04-20 00:08] LABS: CLARITY URINE CLOUDY (CLEAR); COLOR URINE YELLOW (YELLOW); KETONES URINE NEGATIVE (NEGATIVE); LEUKOCYTE ESTERASE URINE 3+ (NEGATIVE); NITRITE URINE NEGATIVE (NEGATIVE); OCCULT BLOOD URINE 2+ (NEGATIVE); PH URINE 7.5 (4.5-8.0); PROTEIN URINE 2+ (NEGATIVE); SPECIFIC GRAVITY URINE 1.012 (1.005-1.030); UROBILINOGEN URINE 0.2 E.U./dL (0.2-1.0)
[2020-04-20] MEDS: MEROPENEM 500 MG in SODIUM CHLORIDE 0.9% 50 ML IV SCH ×3 (00:52→16:16)
[2020-04-20] MEDS: DILTIAZEM HCL 90MG TABLET PO SCH ×3 (00:52→17:04)
[2020-04-20 04:00] VITALS: BP 118/67
[2020-04-20 08:00] VITALS: BP 122/67
[2020-04-20] MEDS: MAGNESIUM OXIDE 400MG TABLET PO SCH ×2 (08:45→21:40)
[2020-04-20] MEDS: ASPIRIN 81MG TABLET PO SCH (08:45)
[2020-04-20] MEDS: LOSARTAN POTASSIUM 50 MG TABLET PO SCH ×2 (08:46→21:40)
[2020-04-20] MEDS: BISACODYL 10MG SUPP PR SCH (08:46)
[2020-04-20 08:47] LABS: EOSINOPHILS % 2.2 % (0.0-5.0); HEMATOCRIT. 29.1 % (36.0-48.0); HEMOGLOBIN. 9.5 g/dL (12.0-16.0); LYMPHOCYTES % 13.5 % (20.0-50.0); MEAN CORPUSCULAR HEMOGLOBIN 27.3 pg (28.0-32.0); MEAN CORPUSCULAR VOLUME 83.6 fL (81.0-99.0); MEAN PLATELET VOLUME 7.6 fl (7.4-10.4); MONOCYTES % 9.8 % (2.0-8.0); NEUTROPHILS % 73.5 % (40.0-76.0); PLATELET 512 x1000/uL (130-400); RED BLOOD CELL COUNT 3.47 mill/uL (4.2-5.4); RED CELL DISTRIBUTION WIDTH 17.6 % (11.6-14.6)
[2020-04-20 08:55] LABS: CHLORIDE 109 mEq/L (98-107)
[2020-04-20 09:01] LABS: PHOSPHORUS 3.6 mg/dL (2.5-4.9)
[2020-04-20] MEDS: ENOXAPARIN 40MG/0.4ML SYR SUBCUT SCH (10:55)
[2020-04-20 12:00] VITALS: BP 153/76
[2020-04-20 16:00] VITALS: BP 123/60
[2020-04-20] MEDS: ACETAMINOPHEN 325MG TABLET PO PRN (16:16)
[2020-04-20 20:28] VITALS: BP 100/52
[2020-04-20] MEDS: DOXAZOSIN MESYLATE 2MG TABLET PO SCH (21:00)
[2020-04-20] MEDS: POLYETHYLENE GLYCOL 3350 (17GM) 1 DOSE PACK PO SCH (21:00)
[2020-04-20] MEDS: ATORVASTATIN CALCIUM 10MG TABLET PO SCH (21:40)
[2020-04-20] MEDS: LATANOPROST 0.005% OPHTH DROPS 2.5ML EACHEYE SCH (21:42)
[2020-04-21] VITALS (7 sets, daily range): BP systolic 110–136; BP diastolic 58–78
[2020-04-21] MEDS: DILTIAZEM HCL 90MG TABLET PO SCH ×3 (00:10→14:29)
[2020-04-21] MEDS: MEROPENEM 500 MG in SODIUM CHLORIDE 0.9% 50 ML IV SCH ×2 (00:15→09:40)
[2020-04-21] MEDS: GABAPENTIN 100MG CAPSULE PO SCH ×2 (05:01→14:29)
[2020-04-21] MEDS: BISACODYL 10MG SUPP PR SCH (09:00)
[2020-04-21] MEDS: ASPIRIN 81MG TABLET PO SCH (09:37)
[2020-04-21] MEDS: ACETAMINOPHEN 325MG TABLET PO PRN (09:38)
[2020-04-21] MEDS: MAGNESIUM OXIDE 400MG TABLET PO SCH (09:39)
[2020-04-21] MEDS: LOSARTAN POTASSIUM 50 MG TABLET PO SCH (14:30)
[2020-04-21] MEDS: ENOXAPARIN 40MG/0.4ML SYR SUBCUT SCH (14:32)
== END 2020-04-21 21:10 | disposition home health service (06) | DRG 720 ==
LOC: ER 12:45 → CVICU 17:38 → EDBEDREQTM 17:44 → EDBEDREQ 17:44 → EDBEDREQSVC 17:45 → CANRESERV 18:19 → ENRESERV 18:19 → CVICU 21:49 → 6WST 04-15 19:05
PROVIDERS: ADMIT Internal Medicine; ATTEND Internal Medicine
PROC: 02HV33Z Insertion of Infusion Device into Superior Vena Cava, Percutaneous Approach (ICD-10-PCS; principal; 2020-04-11)
PROC: B548ZZA Ultrasonography of Superior Vena Cava, Guidance (ICD-10-PCS; 2020-04-11)
DX: A41.51 Sepsis due to Escherichia coli [E. coli] (principal); E46 Unspecified protein-calorie malnutrition; R65.21 Severe sepsis with septic shock; N39.0 Urinary tract infection, site not specified; K85.90 Acute pancreatitis without necrosis or infection, unspecified; E87.4 Mixed disorder of acid-base balance; K52.9 Noninfective gastroenteritis and colitis, unspecified; N18.9 Chronic kidney disease, unspecified; N17.9 Acute kidney failure, unspecified; J18.1 Lobar pneumonia, unspecified organism; D64.9 Anemia, unspecified; E27.9 Disorder of adrenal gland, unspecified; E78.00 Pure hypercholesterolemia, unspecified; E86.9 Volume depletion, unspecified; E87.1 Hypo-osmolality and hyponatremia; E87.6 Hypokalemia; F10.20 Alcohol dependence, uncomplicated; F14.10 Cocaine abuse, uncomplicated; F29 Unspecified psychosis not due to a substance or known physiological condition; F31.9 Bipolar disorder, unspecified; G82.50 Quadriplegia, unspecified; G92 Toxic encephalopathy; I12.9 Hypertensive chronic kidney disease with stage 1 through stage 4 chronic kidney disease, or unspecified chronic kidney disease; I63.9 Cerebral infarction, unspecified; J96.91 Respiratory failure, unspecified with hypoxia; K57.30 Diverticulosis of large intestine without perforation or abscess without bleeding; K59.2 Neurogenic bowel, not elsewhere classified; K80.20 Calculus of gallbladder without cholecystitis without obstruction; M46.46 Discitis, unspecified, lumbar region; M47.896 Other spondylosis, lumbar region; M48.02 Spinal stenosis, cervical region; M48.04 Spinal stenosis, thoracic region; M48.061 Spinal stenosis, lumbar region without neurogenic claudication; M46.26 Osteomyelitis of vertebra, lumbar region; N20.0 Calculus of kidney; N28.1 Cyst of kidney, acquired; N31.9 Neuromuscular dysfunction of bladder, unspecified; J91.8 Pleural effusion in other conditions classified elsewhere; L89.616 Pressure-induced deep tissue damage of right heel; L89.896 Pressure-induced deep tissue damage of other site; I73.9 Peripheral vascular disease, unspecified; Z16.12 Extended spectrum beta lactamase (ESBL) resistance; I34.0 Nonrheumatic mitral (valve) insufficiency; Z51.5 Encounter for palliative care; Z74.01 Bed confinement status; Z82.49 Family history of ischemic heart disease and other diseases of the circulatory system; Z86.73 Personal history of transient ischemic attack (TIA), and cerebral infarction without residual deficits; Z90.710 Acquired absence of both cervix and uterus; Z98.1 Arthrodesis status; Z68.30 Body mass index [BMI] 30.0-30.9, adult; Z91.013 Allergy to seafood; Z88.8 Allergy status to other drugs, medicaments and biological substances; Z91.09 Other allergy status, other than to drugs and biological substances; Z79.82 Long term (current) use of aspirin; Z79.899 Other long term (current) drug therapy; F12.90 Cannabis use, unspecified, uncomplicated
CPT/HCPCS: 36415; 36600; 70544; 70549; 70551; 71045; 72141; 72142; 72146; 72147; 72148; 74176; 76770; 76937; 78580; 80048; 80053; 80061; 80202; 80305; 80320; 81003; 82040; 82150; 82375; 82550; 82607; 82728; 82746; 82805; 83036; 83540; 83550; 83605; 83735; 83880; 84100; 84134; 84145; 84439; 84443; 84481; 84484; 85025; 85379; 85651; 86140; 86301; 87077; 87186; 92610; 93005; 93306; 93923; 93970; 96365; 97112; 97162; 97166; 97530; 99291; A9577; C1725; J1200; J1650; J2060; J2185; J2405; J2543; J3370; J3475; J3480; J3490; J7030; J7050; J7060; P9047; G0480

== ENCOUNTER 2020-04-25 10:43 | Emergency (ER) | payer MEDICARE, OTHER ==
[~2020-04-25] VITALS: Ht 165.1 cm; Wt 77.0 kg
[~2020-04-25 10:43] MED LIST changes: +ASPI-1158 MT; +ATOR10TA69 MT; +DILT360C27 MT; -DIPH25CA83 PO; -DIVA500T3 PO; +DOXA2TAB MT; +FERR325T6 MT; -GABA-531 PO; +LOSA50TA41 MT; -amlodipine; -aspirin; -atenolol; -ibuprofen
[2020-04-25 11:42] LABS: HEMATOCRIT. 30.1 % (36.0-48.0); HEMOGLOBIN. 9.9 g/dL (12.0-16.0); MEAN CORPUSCULAR VOLUME 84.8 fL (81.0-99.0); MEAN PLATELET VOLUME 7.9 fl (7.4-10.4); PLATELET 602 x1000/uL (130-400); RED BLOOD CELL COUNT 3.55 mill/uL (4.2-5.4); RED CELL DISTRIBUTION WIDTH 18.4 % (11.6-14.6)
[2020-04-25 11:46] LABS: CHLORIDE 100 mEq/L (98-107)
[2020-04-25 12:21] LABS: PLATELET ESTIMATE MARKEDLY INCREASED
[2020-04-25 12:48] LABS: CLARITY URINE CLOUDY (CLEAR); COLOR URINE YELLOW (YELLOW); KETONES URINE NEGATIVE (NEGATIVE); LEUKOCYTE ESTERASE URINE 3+ (NEGATIVE); NITRITE URINE NEGATIVE (NEGATIVE); OCCULT BLOOD URINE 2+ (NEGATIVE); PH URINE 7.5 (4.5-8.0); PROTEIN URINE 2+ (NEGATIVE); SPECIFIC GRAVITY URINE 1.009 (1.005-1.030); UROBILINOGEN URINE 0.2 E.U./dL (0.2-1.0)
[2020-04-25] MEDS ORDERED: CEFTRIAXONE 1 G PREMIX 50 ML IV ONE (14:15)
[2020-04-25] MEDS ORDERED: AMOXICILLIN 500 MG CAPSULE PO ONE (14:45)
[2020-04-25 15:25] VITALS: BP 114/59
== END 2020-04-25 18:15 | disposition home or self-care (01) ==
LOC: ER 10:43
DX: R33.9 Retention of urine, unspecified (principal); J44.9 Chronic obstructive pulmonary disease, unspecified; I10 Essential (primary) hypertension; T78.49XA Other allergy, initial encounter; I49.9 Cardiac arrhythmia, unspecified; Z88.8 Allergy status to other drugs, medicaments and biological substances; Z88.3 Allergy status to other anti-infective agents; Z79.899 Other long term (current) drug therapy; Z79.82 Long term (current) use of aspirin; Z86.73 Personal history of transient ischemic attack (TIA), and cerebral infarction without residual deficits; Z90.710 Acquired absence of both cervix and uterus
CPT/HCPCS: 36415; 51702; 80053; 81003; 85025; 93005; 99285; J0696

== ENCOUNTER 2020-05-27 09:25 | Emergency (ER) | payer MEDICARE, OTHER ==
[~2020-05-27] VITALS: Ht 170.2 cm; Wt 60.0 kg
[2020-05-27] MEDS ORDERED: PIPERACILLIN/TAZ 3.375G PREMIX 50 ML IV ONE (10:00)
[2020-05-27] MEDS ORDERED: AZITHROMYCIN 500 MG in DEXT 5% WATER 250 ML IV ONE (10:00)
[2020-05-27 10:37] LABS: HEMATOCRIT. 29.3 % (36.0-48.0); HEMOGLOBIN. 9.3 g/dL (12.0-16.0); MEAN CORPUSCULAR HEMOGLOBIN 26.3 pg (28.0-32.0); MEAN CORPUSCULAR VOLUME 83.3 fL (81.0-99.0); MEAN PLATELET VOLUME 7.3 fl (7.4-10.4); PLATELET 773 x1000/uL (130-400); RED BLOOD CELL COUNT 3.52 mill/uL (4.2-5.4)
[2020-05-27 10:46] LABS: CHLORIDE 113 mEq/L (98-107)
[2020-05-27 10:49] LABS: INR 1.2
[2020-05-27 11:16] LABS: PLATELET ESTIMATE INCREASED
[2020-05-27 11:58] LABS: CLARITY URINE TURBID (CLEAR); COLOR URINE YELLOW (YELLOW); KETONES URINE NEGATIVE (NEGATIVE); LEUKOCYTE ESTERASE URINE 3+ (NEGATIVE); NITRITE URINE NEGATIVE (NEGATIVE); OCCULT BLOOD URINE 3+ (NEGATIVE); PH URINE 6.5 (4.5-8.0); PROTEIN URINE 3+ (NEGATIVE); SPECIFIC GRAVITY URINE 1.012 (1.005-1.030)
[2020-05-27] MEDS ORDERED: ONDANSETRON HCL 4MG/2ML INJ IV STA (14:51)
[2020-05-27] MEDS ORDERED: MORPHINE SULFATE 4 MG/ML CPJ (NOT FOR IM USE) IV STA (14:51)
[2020-05-27] MEDS ORDERED: SODIUM CHLORIDE 0.9% 250 ML IV NR (16:00)
[2020-05-27 19:16] VITALS: BP 104/50
== END 2020-05-27 19:29 | disposition short-term general hospital (02) ==
LOC: ER 09:33 → CANBEDREQ 17:22 → ER 19:29
DX: A41.9 Sepsis, unspecified organism (principal); L98.429 Non-pressure chronic ulcer of back with unspecified severity; N39.0 Urinary tract infection, site not specified; N30.00 Acute cystitis without hematuria; R60.1 Generalized edema; R07.89 Other chest pain; J44.9 Chronic obstructive pulmonary disease, unspecified; I10 Essential (primary) hypertension; M54.9 Dorsalgia, unspecified; Z86.73 Personal history of transient ischemic attack (TIA), and cerebral infarction without residual deficits; Z79.899 Other long term (current) drug therapy; Z88.8 Allergy status to other drugs, medicaments and biological substances; Z90.710 Acquired absence of both cervix and uterus; Z98.890 Other specified postprocedural states; Z74.01 Bed confinement status
CPT/HCPCS: 36415; 71045; 80053; 81003; 84484; 85025; 85610; 87040; 87077; 87086; 87186; 93005; 96361; 96365; 96375; 99285; J0456; J2270; J2405; J2543; J7060

== ENCOUNTER 2021-10-18 21:38 | Emergency (ER) | payer MEDICARE, OTHER ==
[~2021-10-18] VITALS: Ht 167.6 cm; Wt 114.0 kg
[~2021-10-18 21:38] MED LIST changes: -ASPI-1158 MT; +ASPI-1406 MT
[2021-10-18 23:13] LABS: BASOPHILS % 1.2 % (0.0-2.0); EOSINOPHILS % 6.3 % (0.0-5.0); HEMATOCRIT. 35.5 % (36.0-48.0); HEMOGLOBIN. 11.9 g/dL (12.0-16.0); LYMPHOCYTES % 32.5 % (20.0-50.0); MEAN CORPUSCULAR HEMOGLOBIN 27.1 pg (28.0-32.0); MEAN CORPUSCULAR VOLUME 80.6 fL (81.0-99.0); MEAN PLATELET VOLUME 7.8 fl (7.4-10.4); PLATELET 289 x1000/uL (130-400); RED BLOOD CELL COUNT 4.41 mill/uL (4.2-5.4); RED CELL DISTRIBUTION WIDTH 18.7 % (11.6-14.6)
[2021-10-18 23:21] LABS: CHLORIDE 101 mEq/L (98-107)
[2021-10-19] MEDS ORDERED: FUROSEMIDE 40MG/4ML VIAL IVP ONE (00:45)
[2021-10-19 01:05] VITALS: BP 116/61
== END 2021-10-18 22:55 | disposition home or self-care (01) ==
LOC: ER 21:38
DX: I11.9 Hypertensive heart disease without heart failure (principal); R60.9 Edema, unspecified; F31.9 Bipolar disorder, unspecified; G81.90 Hemiplegia, unspecified affecting unspecified side; I25.10 Atherosclerotic heart disease of native coronary artery without angina pectoris; J44.9 Chronic obstructive pulmonary disease, unspecified; E66.01 Morbid (severe) obesity due to excess calories; Z68.41 Body mass index [BMI] 40.0-44.9, adult; Z74.01 Bed confinement status; Z86.73 Personal history of transient ischemic attack (TIA), and cerebral infarction without residual deficits; Z90.710 Acquired absence of both cervix and uterus
CPT/HCPCS: 36415; 71045; 80053; 83880; 84484; 85025; 93005; 99285; J1940; 96374

== ENCOUNTER 2021-11-20 13:09 | Inpatient (IN) | payer MEDICARE, OTHER ==
[~2021-11-20] VITALS: Ht 167.6 cm; Wt 95.8 kg
[2021-11-20] MEDS ORDERED: SODIUM CHLORIDE 0.9% 1,000 ML IV ONE ×2 (13:30→15:15)
[2021-11-20] MEDS ORDERED: CALCIUM GLUCONATE 100MG/ML 10ML VIAL IV ONE (14:00)
[2021-11-20] MEDS ORDERED: ATROPINE SULFATE 1MG/10ML SYR IV ONE (14:00)
[2021-11-20 14:40] LABS: BASOPHILS % 0.5 % (0.0-2.0); EOSINOPHILS % 3.1 % (0.0-5.0); HEMATOCRIT. 32.1 % (36.0-48.0); HEMOGLOBIN. 10.4 g/dL (12.0-16.0); LYMPHOCYTES % 27.7 % (20.0-50.0); MEAN CORPUSCULAR HEMOGLOBIN 25.9 pg (28.0-32.0); MEAN CORPUSCULAR VOLUME 79.6 fL (81.0-99.0); MEAN PLATELET VOLUME 8.3 fl (7.4-10.4); MONOCYTES % 8.6 % (2.0-8.0); NEUTROPHILS % 60.1 % (40.0-76.0); PLATELET 309 x1000/uL (130-400); RED BLOOD CELL COUNT 4.02 mill/uL (4.2-5.4); RED CELL DISTRIBUTION WIDTH 18.1 % (11.6-14.6)
[2021-11-20 14:43] LABS: CHLORIDE 98 mEq/L (98-107)
[2021-11-20] MEDS ORDERED: POTASSIUM CHLORIDE 20MEQ TABLET SR PO ONE (15:15)
[2021-11-20] MEDS ORDERED: LORAZEPAM 0.5MG TABLET PO PRN (18:15)
[2021-11-20] MEDS ORDERED: DOCUSATE SODIUM 100MG CAPSULE PO PRN (18:15)
[2021-11-20] MEDS ORDERED: ACETAMINOPHEN 325MG TABLET PO PRN ×2 (18:15)
[2021-11-20] MEDS ORDERED: IPRATROPIUM/ALBUTEROL 0.5-3(2.5)MG/3ML NEB HHN PRN (18:15)
[2021-11-20] MEDS ORDERED: DOPAMINE 400MG/250ML PREMIX 250 ML IV PRN (19:00)
[2021-11-20 19:45] LABS: CLARITY URINE TURBID (CLEAR); COLOR URINE YELLOW (YELLOW); KETONES URINE NEGATIVE (NEGATIVE); LEUKOCYTE ESTERASE URINE 3+ (NEGATIVE); NITRITE URINE NEGATIVE (NEGATIVE); OCCULT BLOOD URINE 3+ (NEGATIVE); PH URINE 6.5 (4.5-8.0); PROTEIN URINE TRACE (NEGATIVE); SPECIFIC GRAVITY URINE 1.009 (1.005-1.030); UROBILINOGEN URINE 0.2 E.U./dL (0.2-1.0)
[2021-11-20 20:01] LABS: CANNABINOID URINE SCREEN NEGATIVE (NEGATIVE); OPIATES URINE SCREEN NEGATIVE (NEGATIVE); PHENCYCLIDINE URINE SCREEN NEGATIVE (NEGATIVE)
[2021-11-20 20:02] LABS: *AMPHETAMINES SCREEN URINE NEGATIVE (NEGATIVE); *BARBITURATES SCREEN URINE NEGATIVE (NEGATIVE); *BENZODIAZEPINES SCREEN URINE NEGATIVE (NEGATIVE); *COCAINE SCREEN URINE NEGATIVE (NEGATIVE); METHADONE URINE SCREEN NEGATIVE (NEGATIVE)
[2021-11-20] MEDS: DOPAMINE 400MG/250ML PREMIX 250 ML IV PRN (20:13)
[2021-11-21] MEDS: ONDANSETRON HCL 4MG/2ML INJ IV PRN ×2 (01:18→21:46)
[2021-11-21] MEDS: HYDROCODONE/ACETAMINOPHEN 5/325MG TABLET PO PRN ×3 (01:18→22:13)
[2021-11-21 05:22] LABS: BASOPHILS % 0.5 % (0.0-2.0); EOSINOPHILS % 1.7 % (0.0-5.0); HEMATOCRIT. 38.6 % (36.0-48.0); HEMOGLOBIN. 12.9 g/dL (12.0-16.0); LYMPHOCYTES % 12.9 % (20.0-50.0); MEAN CORPUSCULAR HEMOGLOBIN 26.9 pg (28.0-32.0); MEAN CORPUSCULAR VOLUME 80.4 fL (81.0-99.0); MEAN PLATELET VOLUME 7.9 fl (7.4-10.4); MONOCYTES % 10.5 % (2.0-8.0); NEUTROPHILS % 74.4 % (40.0-76.0); PLATELET 311 x1000/uL (130-400); RED CELL DISTRIBUTION WIDTH 17.6 % (11.6-14.6)
[2021-11-21] MEDS: DOPAMINE 400MG/250ML PREMIX 250 ML IV PRN ×2 (10:49→18:01)
[2021-11-22] VITALS (8 sets, daily range): BP systolic 135–164; BP diastolic 67–84
[2021-11-22] MEDS: DOPAMINE 400MG/250ML PREMIX 250 ML IV PRN (00:21)
[2021-11-22] MEDS: CLONIDINE 0.1MG TABLET PO PRN (00:52)
[2021-11-22 05:33] LABS: BASOPHILS % 0.4 % (0.0-2.0); EOSINOPHILS % 3.3 % (0.0-5.0); HEMATOCRIT. 34.6 % (36.0-48.0); HEMOGLOBIN. 11.5 g/dL (12.0-16.0); LYMPHOCYTES % 13.5 % (20.0-50.0); MEAN CORPUSCULAR HEMOGLOBIN 26.6 pg (28.0-32.0); MEAN PLATELET VOLUME 7.8 fl (7.4-10.4); MONOCYTES % 10.6 % (2.0-8.0); NEUTROPHILS % 72.2 % (40.0-76.0); PLATELET 315 x1000/uL (130-400); RED BLOOD CELL COUNT 4.32 mill/uL (4.2-5.4)
[2021-11-22 05:38] LABS: CHLORIDE 105 mEq/L (98-107)
[2021-11-22 05:46] LABS: PHOSPHORUS 3.7 mg/dL (2.5-4.9)
[2021-11-22 05:49] LABS: CREATINE KINASE 225 IU/L (26-192)
[2021-11-22] MEDS: ATORVASTATIN CALCIUM 10MG TABLET PO SCH (09:32)
[2021-11-22] MEDS: ASPIRIN 81MG EC TABLET PO SCH (09:33)
[2021-11-22] MEDS: HYDROCODONE/ACETAMINOPHEN 5/325MG TABLET PO PRN (16:34)
[2021-11-23] VITALS (8 sets, daily range): BP systolic 151–171; BP diastolic 52–94
[2021-11-23] MEDS: HYDROCODONE/ACETAMINOPHEN 5/325MG TABLET PO PRN ×2 (01:02→17:30)
[2021-11-23 06:21] LABS: BASOPHILS % 0.7 % (0.0-2.0); EOSINOPHILS % 2.2 % (0.0-5.0); HEMATOCRIT. 33.9 % (36.0-48.0); LYMPHOCYTES % 19.8 % (20.0-50.0); MEAN CORPUSCULAR HEMOGLOBIN 25.9 pg (28.0-32.0); MEAN CORPUSCULAR VOLUME 79.7 fL (81.0-99.0); MEAN PLATELET VOLUME 8.2 fl (7.4-10.4); MONOCYTES % 12.8 % (2.0-8.0); NEUTROPHILS % 64.5 % (40.0-76.0); PLATELET 299 x1000/uL (130-400); RED BLOOD CELL COUNT 4.25 mill/uL (4.2-5.4); RED CELL DISTRIBUTION WIDTH 18.2 % (11.6-14.6)
[2021-11-23 06:35] LABS: CHLORIDE 107 mEq/L (98-107)
[2021-11-23] MEDS: CEFTRIAXONE 1,000 MG in DEXTROSE 5% WATER 50 ML IV SCH (12:16)
[2021-11-23] MEDS: ASPIRIN 81MG EC TABLET PO SCH (12:21)
[2021-11-23] MEDS: ATORVASTATIN CALCIUM 10MG TABLET PO SCH (12:21)
[2021-11-23] MEDS: AMLODIPINE 2.5MG TABLET PO SCH (17:25)
[2021-11-24] VITALS (9 sets, daily range): BP systolic 129–183; BP diastolic 68–111
[2021-11-24] MEDS: CLONIDINE 0.1MG TABLET PO PRN (00:29)
[2021-11-24] MEDS: CEFTRIAXONE 1,000 MG in DEXTROSE 5% WATER 50 ML IV SCH (08:05)
[2021-11-24] MEDS: AMLODIPINE 2.5MG TABLET PO SCH (08:06)
[2021-11-24] MEDS: ATORVASTATIN CALCIUM 10MG TABLET PO SCH (08:06)
[2021-11-24] MEDS: ASPIRIN 81MG EC TABLET PO SCH (08:06)
[2021-11-24 10:06] LABS: EOSINOPHILS % 2.7 % (0.0-5.0); HEMATOCRIT. 34.4 % (36.0-48.0); HEMOGLOBIN. 11.1 g/dL (12.0-16.0); LYMPHOCYTES % 22.3 % (20.0-50.0); MEAN CORPUSCULAR HEMOGLOBIN 25.7 pg (28.0-32.0); MEAN CORPUSCULAR VOLUME 79.5 fL (81.0-99.0); MEAN PLATELET VOLUME 8.3 fl (7.4-10.4); MONOCYTES % 14.2 % (2.0-8.0); NEUTROPHILS % 59.8 % (40.0-76.0); PLATELET 318 x1000/uL (130-400); RED BLOOD CELL COUNT 4.33 mill/uL (4.2-5.4); RED CELL DISTRIBUTION WIDTH 19.1 % (11.6-14.6)
[2021-11-24 10:13] LABS: CHLORIDE 108 mEq/L (98-107)
[2021-11-24 10:20] LABS: PHOSPHORUS 2.8 mg/dL (2.5-4.9)
[2021-11-24] MEDS: MEROPENEM 1000MG in NORMAL SALINE 100ML IV SCH (14:38)
[2021-11-25] VITALS: BP 174/87
[2021-11-25] MEDS: CLONIDINE 0.1MG TABLET PO PRN (00:43)
[2021-11-25 02:00] VITALS: BP 165/98
[2021-11-25] MEDS: MEROPENEM 1000MG in NORMAL SALINE 100ML IV SCH (02:28)
[2021-11-25 04:00] VITALS: BP 158/86
[2021-11-25 06:00] VITALS: BP 152/90
[2021-11-25] MEDS: AMLODIPINE 2.5MG TABLET PO SCH (09:00)
[2021-11-25] MEDS: ASPIRIN 81MG EC TABLET PO SCH (09:18)
[2021-11-25] MEDS: ATORVASTATIN CALCIUM 10MG TABLET PO SCH (09:18)
[2021-11-25 12:25] LABS: HEMATOCRIT. 34.6 % (36.0-48.0); HEMOGLOBIN. 11.3 g/dL (12.0-16.0); MEAN CORPUSCULAR HEMOGLOBIN 25.7 pg (28.0-32.0); MEAN CORPUSCULAR VOLUME 78.8 fL (81.0-99.0); MEAN PLATELET VOLUME 7.9 fl (7.4-10.4); PLATELET 317 x1000/uL (130-400); RED BLOOD CELL COUNT 4.39 mill/uL (4.2-5.4); RED CELL DISTRIBUTION WIDTH 18.7 % (11.6-14.6)
[2021-11-25 12:34] LABS: CHLORIDE 109 mEq/L (98-107)
[2021-11-25 12:39] LABS: PHOSPHORUS 2.7 mg/dL (2.5-4.9)
[2021-11-25 21:58] LABS: PLATELET ESTIMATE NORMAL
== END 2021-11-25 11:40 | disposition left against medical advice (07) | DRG 264 ==
LOC: ER 13:09 → MICUSO 15:43 → EDBEDREQSVC 19:57 → EDBEDREQTM 19:57 → EDBEDREQSVC 11-22 09:31 → 3WST 11-22 15:47
PROVIDERS: ADMIT Internal Medicine; ATTEND Internal Medicine
PROC: 02HV33Z Insertion of Infusion Device into Superior Vena Cava, Percutaneous Approach (ICD-10-PCS; 2021-11-21)
PROC: B548ZZA Ultrasonography of Superior Vena Cava, Guidance (ICD-10-PCS; 2021-11-21)
PROC: 0JBP0ZZ Excision of Left Lower Leg Subcutaneous Tissue and Fascia, Open Approach (ICD-10-PCS; principal; 2021-11-23)
PROC: 0KBW0ZZ Excision of Left Foot Muscle, Open Approach (ICD-10-PCS; 2021-11-23)
DX: I95.2 Hypotension due to drugs (principal); L89.154 Pressure ulcer of sacral region, stage 4; L89.524 Pressure ulcer of left ankle, stage 4; N17.9 Acute kidney failure, unspecified; N39.0 Urinary tract infection, site not specified; R18.8 Other ascites; Z16.12 Extended spectrum beta lactamase (ESBL) resistance; R00.1 Bradycardia, unspecified; I11.0 Hypertensive heart disease with heart failure; E86.0 Dehydration; R79.89 Other specified abnormal findings of blood chemistry; E87.6 Hypokalemia; N28.1 Cyst of kidney, acquired; J44.9 Chronic obstructive pulmonary disease, unspecified; I27.21 Secondary pulmonary arterial hypertension; F31.9 Bipolar disorder, unspecified; E66.9 Obesity, unspecified; G83.9 Paralytic syndrome, unspecified; L89.892 Pressure ulcer of other site, stage 2; B96.20 Unspecified Escherichia coli [E. coli] as the cause of diseases classified elsewhere; I50.9 Heart failure, unspecified; N28.89 Other specified disorders of kidney and ureter; Z86.73 Personal history of transient ischemic attack (TIA), and cerebral infarction without residual deficits; Z74.01 Bed confinement status; Z90.710 Acquired absence of both cervix and uterus; Z88.8 Allergy status to other drugs, medicaments and biological substances; Z91.013 Allergy to seafood; Z79.899 Other long term (current) drug therapy; Z79.82 Long term (current) use of aspirin; Z68.34 Body mass index [BMI] 34.0-34.9, adult; Z82.49 Family history of ischemic heart disease and other diseases of the circulatory system; F12.11 Cannabis abuse, in remission; F14.11 Cocaine abuse, in remission; I34.0 Nonrheumatic mitral (valve) insufficiency; I07.1 Rheumatic tricuspid insufficiency; B95.2 Enterococcus as the cause of diseases classified elsewhere
CPT/HCPCS: 36415; 71045; 76770; 76937; 80048; 80053; 80305; 81003; 82040; 82550; 83605; 83735; 83880; 84100; 84134; 84145; 84484; 85025; 87070; 87077; 87186; 93005; 93306; 93970; 99285; C1725; J0461; J0610; J0696; J1265; J2185; J2405; J7030; J7060

== ENCOUNTER 2022-03-13 00:12 | Inpatient (IN) | payer MEDICARE, OTHER ==
[~2022-03-13] VITALS: Ht 167.6 cm; Wt 122.5 kg
[~2022-03-13 00:12] MED LIST changes: -LURA80TA PO; +LURA80TA2 PO
[2022-03-13] MEDS ORDERED: FUROSEMIDE 40MG/4ML VIAL IV ONE (00:30)
[2022-03-13] MEDS ORDERED: NITROGLYCERIN 0.4MG TABLET SL SL PRN (00:30)
[2022-03-13] MEDS ORDERED: ASPIRIN 81MG TABLET PO ONE (00:30)
[2022-03-13 00:52] LABS: BASOPHILS % 0.6 % (0.0-2.0); EOSINOPHILS % 3.8 % (0.0-5.0); HEMATOCRIT. 26.7 % (36.0-48.0); HEMOGLOBIN. 8.3 g/dL (12.0-16.0); LYMPHOCYTES % 20.7 % (20.0-50.0); MEAN CORPUSCULAR HEMOGLOBIN 24.3 pg (28.0-32.0); MONOCYTES % 11.7 % (2.0-8.0); NEUTROPHILS % 63.2 % (40.0-76.0); PLATELET 420 x1000/uL (130-400); RED BLOOD CELL COUNT 3.43 mill/uL (4.2-5.4); RED CELL DISTRIBUTION WIDTH 18.8 % (11.6-14.6)
[2022-03-13 00:57] LABS: CHLORIDE 103 mEq/L (98-107)
[2022-03-13 09:15] VITALS: BP 132/85
[2022-03-13] MEDS ORDERED: ONDANSETRON HCL 4MG/2ML INJ IV PRN (10:00)
[2022-03-13] MEDS ORDERED: IPRATROPIUM/ALBUTEROL 0.5-3(2.5)MG/3ML NEB HHN PRN (10:00)
[2022-03-13] MEDS ORDERED: CLONIDINE 0.1MG TABLET PO PRN (10:00)
[2022-03-13] MEDS ORDERED: ERGO1250 PO (10:47)
[2022-03-13] MEDS ORDERED: FURO40TA5 PO (10:47)
[2022-03-13] MEDS ORDERED: FERR325T30 PO (10:47)
[2022-03-13] MEDS ORDERED: APIX5TAB PO (10:47)
[2022-03-13] MEDS ORDERED: NALOXONE HCL 0.4MG/ML VIAL IV PRN (11:30)
[2022-03-13] MEDS ORDERED: DILTIAZEM HCL 300MG CAPSULE SR 24HR PO SCH (11:30)
[2022-03-13 12:00] VITALS: BP 107/57
[2022-03-13] MEDS: POTASSIUM CHLORIDE 20MEQ TABLET SR PO SCH (13:45)
[2022-03-13] MEDS: DILTIAZEM HCL 30MG TABLET PO SCH ×2 (13:46→21:36)
[2022-03-13 15:54] VITALS: BP 109/64
[2022-03-13] MEDS: HYDROCODONE/ACETAMINOPHEN 5/325MG TABLET PO PRN (15:58)
[2022-03-13] MEDS: APIXABAN 5 MG TABLET PO SCH (18:18)
[2022-03-13] MEDS ORDERED: GABAPENTIN 300MG CAPSULE PO SCH (18:45)
[2022-03-13] MEDS ORDERED: CARV3.1242 MT (19:43)
[2022-03-13] MEDS ORDERED: GABA800T97 MT (19:50)
[2022-03-13] MEDS ORDERED: BACL20TA PO (19:50)
[2022-03-13] MEDS ORDERED: MIRT-89 PO (19:50)
[2022-03-13] MEDS ORDERED: OMEP40CA20 MT (19:52)
[2022-03-13] MEDS ORDERED: MULT-1146 MT (19:59)
[2022-03-13] MEDS ORDERED: ZINC50TA69 MT (19:59)
[2022-03-13 20:00] VITALS: BP 108/66
[2022-03-13] MEDS: LOSARTAN POTASSIUM 50 MG TABLET PO SCH (21:35)
[2022-03-13] MEDS: DOXAZOSIN MESYLATE 2MG TABLET PO SCH (21:35)
[2022-03-13] MEDS: GABAPENTIN 400MG CAPSULE PO SCH (21:36)
[2022-03-13] MEDS: DIPHENHYDRAMINE 50MG/ML VIAL IV PRN (23:38)
[2022-03-14] VITALS: BP 121/58
[2022-03-14 04:00] VITALS: BP 113/55
[2022-03-14 06:37] LABS: BASOPHILS % 0.6 % (0.0-2.0); EOSINOPHILS % 4.4 % (0.0-5.0); HEMATOCRIT. 25.5 % (36.0-48.0); HEMOGLOBIN. 8.3 g/dL (12.0-16.0); LYMPHOCYTES % 20.1 % (20.0-50.0); MEAN CORPUSCULAR HEMOGLOBIN 25.1 pg (28.0-32.0); MEAN CORPUSCULAR VOLUME 76.9 fL (81.0-99.0); MONOCYTES % 11.8 % (2.0-8.0); NEUTROPHILS % 63.1 % (40.0-76.0); PLATELET 407 x1000/uL (130-400); RED BLOOD CELL COUNT 3.31 mill/uL (4.2-5.4)
[2022-03-14] MEDS: GABAPENTIN 400MG CAPSULE PO SCH ×3 (06:37→21:43)
[2022-03-14] MEDS: DILTIAZEM HCL 30MG TABLET PO SCH ×3 (06:38→21:45)
[2022-03-14 06:57] LABS: CHLORIDE 103 mEq/L (98-107)
[2022-03-14 08:00] VITALS: BP 101/52
[2022-03-14] MEDS: LOSARTAN POTASSIUM 50 MG TABLET PO SCH ×2 (09:00→21:45)
[2022-03-14] MEDS ORDERED: FUROSEMIDE 40MG/4ML VIAL IVP SCH (09:00)
[2022-03-14] MEDS: POTASSIUM CHLORIDE 20MEQ TABLET SR PO SCH (09:52)
[2022-03-14] MEDS: HYDROCODONE/ACETAMINOPHEN 5/325MG TABLET PO PRN ×3 (09:52→21:44)
[2022-03-14] MEDS: APIXABAN 5 MG TABLET PO SCH ×2 (09:52→17:32)
[2022-03-14] MEDS: ASPIRIN 81MG EC TABLET PO SCH (09:52)
[2022-03-14 12:00] VITALS: BP 108/60
[2022-03-14 16:00] VITALS: BP 113/60
[2022-03-14 20:00] VITALS: BP 108/54
[2022-03-14] MEDS: ATORVASTATIN CALCIUM 10MG TABLET PO SCH (21:44)
[2022-03-14] MEDS: DOXAZOSIN MESYLATE 2MG TABLET PO SCH (21:45)
[2022-03-15] VITALS (7 sets, daily range): BP systolic 97–124; BP diastolic 46–64
[2022-03-15] MEDS: ACETAMINOPHEN 325MG TABLET PO PRN ×2 (02:58→19:54)
[2022-03-15] MEDS: DILTIAZEM HCL 30MG TABLET PO SCH ×3 (05:41→21:10)
[2022-03-15] MEDS: GABAPENTIN 400MG CAPSULE PO SCH ×3 (05:41→21:07)
[2022-03-15] MEDS ORDERED: FUROSEMIDE 40MG/4ML VIAL IVP SCH (09:00)
[2022-03-15] MEDS: LOSARTAN POTASSIUM 50 MG TABLET PO SCH ×2 (09:00→21:00)
[2022-03-15] MEDS: POTASSIUM CHLORIDE 20MEQ TABLET SR PO SCH (09:06)
[2022-03-15] MEDS: ASPIRIN 81MG EC TABLET PO SCH (09:06)
[2022-03-15] MEDS: APIXABAN 5 MG TABLET PO SCH ×2 (09:06→18:03)
[2022-03-15] MEDS: COLCHICINE 0.6MG TABLET PO SCH (11:05)
[2022-03-15] MEDS ORDERED: COLC0.6C3 MT (12:27)
[2022-03-15] MEDS: HYDROCODONE/ACETAMINOPHEN 5/325MG TABLET PO PRN (15:47)
[2022-03-15] MEDS: DOXAZOSIN MESYLATE 2MG TABLET PO SCH (21:00)
[2022-03-15] MEDS: ATORVASTATIN CALCIUM 10MG TABLET PO SCH (21:08)
[2022-03-16] VITALS: BP 130/55
[2022-03-16] MEDS: DIPHENHYDRAMINE 50MG/ML VIAL IV PRN (00:23)
[2022-03-16 04:00] VITALS: BP 127/64
[2022-03-16] MEDS: GABAPENTIN 400MG CAPSULE PO SCH (05:34)
[2022-03-16] MEDS: DILTIAZEM HCL 30MG TABLET PO SCH (05:34)
[2022-03-16 08:00] VITALS: BP 115/76
[2022-03-16] MEDS: POTASSIUM CHLORIDE 20MEQ TABLET SR PO SCH (08:54)
[2022-03-16] MEDS: APIXABAN 5 MG TABLET PO SCH (08:54)
[2022-03-16] MEDS: ASPIRIN 81MG EC TABLET PO SCH (08:54)
[2022-03-16] MEDS: COLCHICINE 0.6MG TABLET PO SCH (08:54)
[2022-03-16] MEDS ORDERED: FUROSEMIDE 20MG/2ML VIAL IVP SCH (09:00)
[2022-03-16 09:01] VITALS: BP 115/76
[2022-03-16] MEDS: HYDROCODONE/ACETAMINOPHEN 5/325MG TABLET PO PRN (09:01)
[2022-03-16] MEDS: LOSARTAN POTASSIUM 50 MG TABLET PO SCH (09:05)
== END 2022-03-16 11:50 | disposition home or self-care (01) | DRG 194 ==
LOC: ER 00:12 → 6WST 03:05 → UNDODISIN 03-14 15:06
PROVIDERS: ADMIT Internal Medicine; ATTEND Internal Medicine
DX: I11.0 Hypertensive heart disease with heart failure (principal); L89.313 Pressure ulcer of right buttock, stage 3; E44.1 Mild protein-calorie malnutrition; I27.20 Pulmonary hypertension, unspecified; I73.9 Peripheral vascular disease, unspecified; D64.9 Anemia, unspecified; M79.89 Other specified soft tissue disorders; J44.9 Chronic obstructive pulmonary disease, unspecified; F31.9 Bipolar disorder, unspecified; E87.6 Hypokalemia; I50.30 Unspecified diastolic (congestive) heart failure; E66.01 Morbid (severe) obesity due to excess calories; Z74.01 Bed confinement status; Z88.4 Allergy status to anesthetic agent; Z91.09 Other allergy status, other than to drugs and biological substances; Z91.013 Allergy to seafood; Z86.73 Personal history of transient ischemic attack (TIA), and cerebral infarction without residual deficits; Z90.710 Acquired absence of both cervix and uterus; Z68.41 Body mass index [BMI] 40.0-44.9, adult; Z53.29 Procedure and treatment not carried out because of patient's decision for other reasons
CPT/HCPCS: 36415; 71045; 80053; 82040; 83036; 83880; 84134; 84484; 84550; 85025; 93005; 93306; 93923; 93970; 99285; J1200; J1940

== ENCOUNTER 2022-07-18 16:56 | Inpatient (IN) | payer MEDICARE, OTHER ==
[~2022-07-18] VITALS: Ht 162.6 cm; Wt 112.9 kg
[~2022-07-18 16:56] MED LIST changes: +APIX5TAB PO; +BACL20TA PO; +CARV3.1242 MT; +COLC0.6C3 MT; +ERGO1250 PO; +FERR325T30 PO; +FURO40TA5 PO; +GABA800T97 MT; +MIRT-89 PO; +MULT-1146 MT; +OMEP40CA20 MT; +ZINC50TA69 MT
[2022-07-18 20:05] LABS: BASOPHILS % 0.2 % (0.0-2.0); EOSINOPHILS % 0.5 % (0.0-5.0); HEMATOCRIT. 36.1 % (36.0-48.0); HEMOGLOBIN. 11.7 g/dL (12.0-16.0); LYMPHOCYTES % 7.8 % (20.0-50.0); MEAN CORPUSCULAR HEMOGLOBIN 25.4 pg (28.0-32.0); MEAN CORPUSCULAR VOLUME 78.3 fL (81.0-99.0); MEAN PLATELET VOLUME 7.6 fl (7.4-10.4); MONOCYTES % 8.3 % (2.0-8.0); NEUTROPHILS % 83.2 % (40.0-76.0); PLATELET 287 x1000/uL (130-400); RED BLOOD CELL COUNT 4.61 mill/uL (4.2-5.4); RED CELL DISTRIBUTION WIDTH 21.2 % (11.6-14.6)
[2022-07-18 20:11] LABS: INR 1.3
[2022-07-18] MEDS ORDERED: SODIUM CHLORIDE 0.9% 1,000 ML IV ONE (22:30)
[2022-07-19 07:50] VITALS: BP 136/72
[2022-07-19 08:00] VITALS: BP 136/72
[2022-07-19] MEDS ORDERED: ONDANSETRON HCL 4MG/2ML INJ IV PRN (08:45)
[2022-07-19] MEDS ORDERED: CEFTRIAXONE 1 G PREMIX 50 ML IV SCH (08:45)
[2022-07-19] MEDS ORDERED: ACETAMINOPHEN 325MG TABLET PO PRN (08:45)
[2022-07-19] MEDS: FLUTICASONE PROPIONATE 50MCG/SPRAY BOTTLE BOTHNSTRLS SCH (10:00)
[2022-07-19] MEDS: HYDROCODONE/ACETAMINOPHEN 5/325MG TABLET PO PRN ×2 (10:17→21:15)
[2022-07-19] MEDS ORDERED: AZITHROMYCIN 500MG/250ML 250 ML IV SCH (11:00)
[2022-07-19 12:00] VITALS: BP 108/59
[2022-07-19] MEDS: CEFTRIAXONE 1,000 MG in DEXTROSE 5% WATER 50 ML IV SCH (12:12)
[2022-07-19] MEDS: SODIUM CHLORIDE 0.45% 1,000 ML IV SCH (15:00)
[2022-07-19 16:00] VITALS: BP 131/68
[2022-07-19 19:00] LABS: CLARITY URINE TURBID (CLEAR); COLOR URINE YELLOW (YELLOW); KETONES URINE NEGATIVE (NEGATIVE); LEUKOCYTE ESTERASE URINE 3+ (NEGATIVE); NITRITE URINE NEGATIVE (NEGATIVE); OCCULT BLOOD URINE 3+ (NEGATIVE); PH URINE 5.5 (4.5-8.0); PROTEIN URINE 1+ (NEGATIVE); SPECIFIC GRAVITY URINE 1.012 (1.005-1.030); UROBILINOGEN URINE 0.2 E.U./dL (0.2-1.0)
[2022-07-19 20:00] VITALS: BP 106/50
[2022-07-19] MEDS: ZOLPIDEM TARTRATE 5MG TABLET PO PRN (23:00)
[2022-07-20] VITALS: BP 116/57
[2022-07-20] MEDS: SODIUM CHLORIDE 0.45% 1,000 ML IV SCH ×2 (01:35→14:31)
[2022-07-20 04:00] VITALS: BP 115/52
[2022-07-20 07:38] LABS: HEMATOCRIT. 32.9 % (36.0-48.0); HEMOGLOBIN. 10.5 g/dL (12.0-16.0); MEAN PLATELET VOLUME 8.6 fl (7.4-10.4); PLATELET 286 x1000/uL (130-400); RED BLOOD CELL COUNT 4.21 mill/uL (4.2-5.4); RED CELL DISTRIBUTION WIDTH 20.9 % (11.6-14.6)
[2022-07-20 08:00] VITALS: BP 127/70
[2022-07-20 08:13] LABS: CHLORIDE 105 mEq/L (98-107)
[2022-07-20] MEDS: FLUTICASONE PROPIONATE 50MCG/SPRAY BOTTLE BOTHNSTRLS SCH ×2 (09:00→19:31)
[2022-07-20] MEDS: CEFTRIAXONE 1,000 MG in DEXTROSE 5% WATER 50 ML IV SCH (09:56)
[2022-07-20] MEDS: HYDROCODONE/ACETAMINOPHEN 5/325MG TABLET PO PRN ×3 (09:58→20:54)
[2022-07-20] MEDS ORDERED: POTASSIUM CHLORIDE 20MEQ TABLET SR PO NR (10:15)
[2022-07-20 12:00] VITALS: BP 101/80
[2022-07-20 13:28] LABS: PLATELET ESTIMATE NORMAL
[2022-07-20 20:00] VITALS: BP 145/85
[2022-07-20] MEDS ORDERED: NALOXONE HCL 0.4MG/ML VIAL IV PRN (20:00)
[2022-07-20] MEDS: ZOLPIDEM TARTRATE 5MG TABLET PO PRN (23:01)
[2022-07-21] VITALS (7 sets, daily range): BP systolic 138–210; BP diastolic 74–102
[2022-07-21] MEDS: SODIUM CHLORIDE 0.45% 1,000 ML IV SCH ×2 (04:15→17:35)
[2022-07-21] MEDS: HYDROCODONE/ACETAMINOPHEN 5/325MG TABLET PO PRN ×4 (06:08→23:14)
[2022-07-21 08:14] LABS: HEMATOCRIT. 36.2 % (36.0-48.0); HEMOGLOBIN. 11.7 g/dL (12.0-16.0); MEAN CORPUSCULAR HEMOGLOBIN 25.3 pg (28.0-32.0); MEAN CORPUSCULAR VOLUME 78.2 fL (81.0-99.0); MEAN PLATELET VOLUME 8.7 fl (7.4-10.4); PLATELET 320 x1000/uL (130-400); RED BLOOD CELL COUNT 4.63 mill/uL (4.2-5.4); RED CELL DISTRIBUTION WIDTH 20.9 % (11.6-14.6)
[2022-07-21 09:51] LABS: CHLORIDE 105 mEq/L (98-107)
[2022-07-21] MEDS: FLUTICASONE PROPIONATE 50MCG/SPRAY BOTTLE BOTHNSTRLS SCH ×2 (10:03→16:12)
[2022-07-21] MEDS: CEFTRIAXONE 1,000 MG in DEXTROSE 5% WATER 50 ML IV SCH (10:04)
[2022-07-21 13:51] LABS: PLATELET ESTIMATE NORMAL
[2022-07-21] MEDS: LOSARTAN POTASSIUM 100 MG TABLET PO SCH (16:11)
[2022-07-21] MEDS ORDERED: LEVO-65 MT (16:41)
[2022-07-22] MEDS: ZOLPIDEM TARTRATE 5MG TABLET PO PRN (01:12)
[2022-07-22 04:00] VITALS: BP 144/70
[2022-07-22] MEDS: SODIUM CHLORIDE 0.45% 1,000 ML IV SCH ×2 (06:55→20:15)
[2022-07-22 08:00] VITALS: BP 182/82
[2022-07-22] MEDS: CEFTRIAXONE 1,000 MG in DEXTROSE 5% WATER 50 ML IV SCH ×2 (09:00→09:39)
[2022-07-22] MEDS: FLUTICASONE PROPIONATE 50MCG/SPRAY BOTTLE BOTHNSTRLS SCH (09:39)
[2022-07-22] MEDS: LOSARTAN POTASSIUM 100 MG TABLET PO SCH (09:40)
[2022-07-22] MEDS: HYDROCODONE/ACETAMINOPHEN 5/325MG TABLET PO PRN (10:32)
[2022-07-22 12:01] VITALS: BP 135/54
[2022-07-22 16:00] VITALS: BP 166/72
[2022-07-22 20:00] VITALS: BP 172/95
[2022-07-22] MEDS ORDERED: CLONIDINE 0.1MG TABLET PO SCH (20:00)
[2022-07-22] MEDS ORDERED: HYDRALAZINE 20MG/ML VIAL IV PRN (21:30)
[2022-07-23] VITALS: BP 129/77
[2022-07-23] MEDS: CLONIDINE 0.2MG TABLET PO PRN ×3 (02:17→19:50)
[2022-07-23] MEDS: LOSARTAN POTASSIUM 100 MG TABLET PO SCH (08:29)
[2022-07-23] MEDS: CEFTRIAXONE 1,000 MG in DEXTROSE 5% WATER 50 ML IV SCH (09:00)
[2022-07-23] MEDS: SODIUM CHLORIDE 0.45% 1,000 ML IV SCH (09:35)
[2022-07-23] MEDS: HYDRALAZINE HCL 100MG TABLET PO PRN ×2 (13:24→22:06)
== END 2022-07-23 22:36 | disposition home or self-care (01) | DRG 720 ==
LOC: ER 16:56 → 6EST 22:40 → EDBEDREQ 07-19 04:55 → EDBEDREQSVC 07-19 04:55 → EDBEDREQTM 07-19 04:55
PROVIDERS: ADMIT Internal Medicine; ATTEND Internal Medicine
DX: A41.9 Sepsis, unspecified organism (principal); N17.0 Acute kidney failure with tubular necrosis; L89.154 Pressure ulcer of sacral region, stage 4; I11.0 Hypertensive heart disease with heart failure; G82.20 Paraplegia, unspecified; I50.9 Heart failure, unspecified; N39.0 Urinary tract infection, site not specified; Z20.822 Contact with and (suspected) exposure to COVID-19; E66.01 Morbid (severe) obesity due to excess calories; Z86.73 Personal history of transient ischemic attack (TIA), and cerebral infarction without residual deficits; Z68.41 Body mass index [BMI] 40.0-44.9, adult; Z90.710 Acquired absence of both cervix and uterus; Z88.8 Allergy status to other drugs, medicaments and biological substances
CPT/HCPCS: 36415; 71045; 80048; 81003; 82040; 83605; 84134; 84145; 85025; 87077; 87186; 87426; 93970; 99285; J0456; J0696; J2405; J7030; J7060

== ENCOUNTER 2022-08-02 06:41 | Emergency (ER) | payer MEDICARE, OTHER ==
[~2022-08-02] VITALS: Ht 172.7 cm; Wt 136.0 kg
[~2022-08-02 06:41] MED LIST changes: +LEVO-65 MT
[2022-08-02] MEDS ORDERED: ACETAMINOPHEN 325MG TABLET PO SCH (08:30)
[2022-08-02 10:03] LABS: HEMATOCRIT. 30.6 % (36.0-48.0); HEMOGLOBIN. 9.8 g/dL (12.0-16.0); MEAN CORPUSCULAR HEMOGLOBIN 24.9 pg (28.0-32.0); MEAN CORPUSCULAR VOLUME 77.5 fL (81.0-99.0); MEAN PLATELET VOLUME 7.5 fl (7.4-10.4); PLATELET 769 x1000/uL (130-400); RED BLOOD CELL COUNT 3.94 mill/uL (4.2-5.4); RED CELL DISTRIBUTION WIDTH 21.8 % (11.6-14.6)
[2022-08-02 10:12] LABS: CHLORIDE 111 mEq/L (98-107)
[2022-08-02 10:50] LABS: PLATELET ESTIMATE INCREASED
[2022-08-02] MEDS ORDERED: LORAZEPAM 2MG/ML CPJ IV ONE (11:45)
[2022-08-02] MEDS ORDERED: HYDROMORPHONE HCL/PF 2MG/ML CPJ IV ONE (11:45)
[2022-08-02] MEDS ORDERED: AZITHROMYCIN 500 MG TABLET PO SCH (12:00)
[2022-08-02] MEDS: AMPICILLIN SOD/SULBACTAM NA 3 G in SODIUM CHLORIDE 0.9% 100 ML IV SCH ×2 (12:33→12:37)
[2022-08-02 12:49] LABS: CLARITY URINE TURBID (CLEAR); COLOR URINE YELLOW (YELLOW); KETONES URINE NEGATIVE (NEGATIVE); LEUKOCYTE ESTERASE URINE 3+ (NEGATIVE); NITRITE URINE NEGATIVE (NEGATIVE); OCCULT BLOOD URINE 3+ (NEGATIVE); PROTEIN URINE 1+ (NEGATIVE); SPECIFIC GRAVITY URINE 1.011 (1.005-1.030); UROBILINOGEN URINE 0.2 E.U./dL (0.2-1.0)
[2022-08-02] MEDS ORDERED: AMOX1TAB16 MT (15:43)
[2022-08-02] MEDS ORDERED: NITR-87 MT (15:43)
[2022-08-02] MEDS ORDERED: HYDR-4001 MT (15:49)
[2022-08-03] MEDS: AMPICILLIN SOD/SULBACTAM NA 3 G in SODIUM CHLORIDE 0.9% 100 ML IV SCH ×3 (06:35)
[2022-08-03] MEDS ORDERED: NITROFURANTOIN 100MG M/M CAPSULE PO SCH (09:00)
[2022-08-03] MEDS ORDERED: AMOXICILLIN/POTASSIUM CLAVULANATE 875/125MG TAB PO SCH (09:00)
[2022-08-03 09:15] VITALS: BP 170/80
== END 2022-08-03 09:36 | disposition home or self-care (01) ==
LOC: ER 06:41 → CANBEDREQ 08-03 08:06 → ER 08-03 09:36
DX: N39.0 Urinary tract infection, site not specified (principal); J18.9 Pneumonia, unspecified organism; R33.9 Retention of urine, unspecified; M48.061 Spinal stenosis, lumbar region without neurogenic claudication; I11.0 Hypertensive heart disease with heart failure; I50.9 Heart failure, unspecified; G82.20 Paraplegia, unspecified; W01.0XXA Fall on same level from slipping, tripping and stumbling without subsequent striking against object, initial encounter; Y93.9 Activity, unspecified; Y92.9 Unspecified place or not applicable; Z88.4 Allergy status to anesthetic agent; Z88.8 Allergy status to other drugs, medicaments and biological substances; Z79.82 Long term (current) use of aspirin; Z86.73 Personal history of transient ischemic attack (TIA), and cerebral infarction without residual deficits; Z90.710 Acquired absence of both cervix and uterus
CPT/HCPCS: 36415; 71045; 72125; 72128; 72131; 72141; 72146; 72148; 80053; 81003; 85025; 96365; 96366; 96375; 99285; J0295; J1170; J2060; J7050; Z7610

== ENCOUNTER 2022-08-04 16:55 | Inpatient (IN) | payer MEDICARE, OTHER ==
[~2022-08-04] VITALS: Ht 162.6 cm; Wt 125.1 kg
[~2022-08-04 16:55] MED LIST changes: +AMOX1TAB16 MT; +HYDR-4001 MT; +NITR-87 MT
[2022-08-04] MEDS ORDERED: CEFTRIAXONE 1 G PREMIX 50 ML IV ONE (18:00)
[2022-08-04] MEDS ORDERED: AZITHROMYCIN 500MG/250ML 250 ML IV ONE (18:00)
[2022-08-04] MEDS ORDERED: SODIUM CHLORIDE 0.9% 1,000 ML IV ONE (18:00)
[2022-08-04 19:27] LABS: BASOPHILS % 1.1 % (0.0-2.0); EOSINOPHILS % 2.5 % (0.0-5.0); HEMATOCRIT. 31.7 % (36.0-48.0); HEMOGLOBIN. 10.4 g/dL (12.0-16.0); LYMPHOCYTES % 13.5 % (20.0-50.0); MEAN CORPUSCULAR HEMOGLOBIN 25.3 pg (28.0-32.0); MEAN CORPUSCULAR VOLUME 77.1 fL (81.0-99.0); MEAN PLATELET VOLUME 7.3 fl (7.4-10.4); MONOCYTES % 11.2 % (2.0-8.0); NEUTROPHILS % 71.7 % (40.0-76.0); PLATELET 763 x1000/uL (130-400); RED BLOOD CELL COUNT 4.11 mill/uL (4.2-5.4); RED CELL DISTRIBUTION WIDTH 21.1 % (11.6-14.6)
[2022-08-04 19:31] LABS: CHLORIDE 103 mEq/L (98-107)
[2022-08-04] MEDS ORDERED: AZITHROMYCIN 500MG/250ML 250 ML IV SCH (20:30)
[2022-08-05] MEDS ORDERED: CLONIDINE 0.1MG TABLET PO PRN (01:45)
[2022-08-05] MEDS: HYDROCODONE/ACETAMINOPHEN 10/325MG TABLET PO PRN ×2 (02:01→22:31)
[2022-08-05 04:55] LABS: HEMATOCRIT. 29.6 % (36.0-48.0); HEMOGLOBIN. 9.7 g/dL (12.0-16.0); MEAN CORPUSCULAR HEMOGLOBIN 25.5 pg (28.0-32.0); MEAN CORPUSCULAR VOLUME 77.5 fL (81.0-99.0); MEAN PLATELET VOLUME 6.9 fl (7.4-10.4); PLATELET 601 x1000/uL (130-400); RED BLOOD CELL COUNT 3.81 mill/uL (4.2-5.4); RED CELL DISTRIBUTION WIDTH 21.9 % (11.6-14.6)
[2022-08-05 05:19] LABS: CHLORIDE 106 mEq/L (98-107)
[2022-08-05] MEDS ORDERED: ONDANSETRON HCL 4MG/2ML INJ IV PRN (09:15)
[2022-08-05] MEDS ORDERED: ACETAMINOPHEN 325MG TABLET PO PRN (09:15)
[2022-08-05] MEDS ORDERED: FUROSEMIDE 40MG/4ML VIAL IVP NR (09:15)
[2022-08-05] MEDS ORDERED: NALOXONE HCL 0.4MG/ML VIAL IV PRN (09:30)
[2022-08-05 17:03] LABS: PLATELET ESTIMATE INCREASED
[2022-08-05] MEDS ORDERED: CEFTRIAXONE 1,000 MG in DEXTROSE 5% WATER 50 ML IV SCH (18:00)
[2022-08-05 20:45] VITALS: BP 170/95
[2022-08-05] MEDS ORDERED: AZITHROMYCIN 500 MG in DEXT 5% WATER 250 ML IV SCH (21:00)
[2022-08-05 22:15] VITALS: BP 189/84
[2022-08-06] VITALS: BP 157/65
[2022-08-06 04:00] VITALS: BP 134/73
[2022-08-06] MEDS: GABAPENTIN 400MG CAPSULE PO SCH ×3 (06:55→21:01)
[2022-08-06] MEDS: OMEPRAZOLE 20MG CAPSULE EXTENDED RELEASE PO SCH (06:56)
[2022-08-06 07:19] LABS: HEMATOCRIT. 30.9 % (36.0-48.0); HEMOGLOBIN. 9.9 g/dL (12.0-16.0); MEAN CORPUSCULAR HEMOGLOBIN 25.3 pg (28.0-32.0); MEAN CORPUSCULAR VOLUME 78.8 fL (81.0-99.0); MEAN PLATELET VOLUME 7.2 fl (7.4-10.4); PLATELET 579 x1000/uL (130-400); RED BLOOD CELL COUNT 3.92 mill/uL (4.2-5.4); RED CELL DISTRIBUTION WIDTH 21.5 % (11.6-14.6)
[2022-08-06 08:00] VITALS: BP 123/60
[2022-08-06] MEDS ORDERED: BACLOFEN 20MG TABLET PO SCH (09:00)
[2022-08-06] MEDS ORDERED: FUROSEMIDE 40MG/4ML VIAL IVP SCH (09:00)
[2022-08-06 09:01] LABS: CHLORIDE 107 mEq/L (98-107)
[2022-08-06] MEDS: LOSARTAN POTASSIUM 50 MG TABLET PO SCH ×2 (09:10→17:20)
[2022-08-06] MEDS: APIXABAN 5 MG TABLET PO SCH ×2 (09:11→17:19)
[2022-08-06] MEDS: DILTIAZEM HCL 180MG CAPSULE CD 24HR PO SCH (09:11)
[2022-08-06] MEDS: CARVEDILOL 3.125 MG TABLET PO SCH ×2 (09:12→20:59)
[2022-08-06] MEDS: FUROSEMIDE 40MG TABLET PO SCH ×2 (09:12→20:59)
[2022-08-06] MEDS: ASPIRIN 81MG EC TABLET PO SCH (09:12)
[2022-08-06] MEDS: COLCHICINE 0.6MG TABLET PO SCH (09:12)
[2022-08-06 12:00] VITALS: BP 133/51
[2022-08-06] MEDS: BACLOFEN 10MG TABLET PO SCH ×2 (12:39→21:00)
[2022-08-06] MEDS: MEROPENEM 1,000 MG in SODIUM CHLORIDE 0.9% 100 ML IV SCH ×2 (15:17→20:58)
[2022-08-06 16:00] VITALS: BP 135/63
[2022-08-06 16:16] LABS: PLATELET ESTIMATE INCREASED
[2022-08-06 20:00] VITALS: BP 140/64
[2022-08-06] MEDS: DOXAZOSIN MESYLATE 2MG TABLET PO SCH (20:58)
[2022-08-06] MEDS: MIRTAZAPINE 15MG TABLET PO SCH (21:01)
[2022-08-06] MEDS: ATORVASTATIN CALCIUM 20MG TABLET PO SCH (21:01)
[2022-08-07] VITALS: BP 94/56
[2022-08-07 04:00] VITALS: BP 121/58
[2022-08-07] MEDS: OMEPRAZOLE 20MG CAPSULE EXTENDED RELEASE PO SCH (05:53)
[2022-08-07] MEDS: MEROPENEM 1,000 MG in SODIUM CHLORIDE 0.9% 100 ML IV SCH ×3 (05:53→20:31)
[2022-08-07] MEDS: GABAPENTIN 400MG CAPSULE PO SCH ×3 (05:53→20:31)
[2022-08-07] MEDS: CARVEDILOL 3.125 MG TABLET PO SCH ×2 (09:00→20:30)
[2022-08-07] MEDS: LOSARTAN POTASSIUM 50 MG TABLET PO SCH ×2 (09:00→17:00)
[2022-08-07] MEDS: DILTIAZEM HCL 180MG CAPSULE CD 24HR PO SCH (09:00)
[2022-08-07 10:30] VITALS: BP 101/56
[2022-08-07] MEDS: ASPIRIN 81MG EC TABLET PO SCH (11:52)
[2022-08-07] MEDS: COLCHICINE 0.6MG TABLET PO SCH (11:52)
[2022-08-07] MEDS: BACLOFEN 10MG TABLET PO SCH ×2 (11:52→18:23)
[2022-08-07] MEDS: APIXABAN 5 MG TABLET PO SCH ×2 (11:52→18:23)
[2022-08-07] MEDS: FUROSEMIDE 40MG TABLET PO SCH ×2 (11:53→20:30)
[2022-08-07 16:00] VITALS: BP 112/59
[2022-08-07 20:00] VITALS: BP 122/55
[2022-08-07] MEDS: DOXAZOSIN MESYLATE 2MG TABLET PO SCH (20:30)
[2022-08-07] MEDS: ATORVASTATIN CALCIUM 20MG TABLET PO SCH (20:31)
[2022-08-07] MEDS: MIRTAZAPINE 15MG TABLET PO SCH (20:31)
[2022-08-08] VITALS: BP 130/60
[2022-08-08 04:00] VITALS: BP 139/58
[2022-08-08] MEDS: OMEPRAZOLE 20MG CAPSULE EXTENDED RELEASE PO SCH (06:49)
[2022-08-08] MEDS: GABAPENTIN 400MG CAPSULE PO SCH ×3 (06:49→20:57)
[2022-08-08] MEDS: MEROPENEM 1,000 MG in SODIUM CHLORIDE 0.9% 100 ML IV SCH ×3 (06:50→22:58)
[2022-08-08 07:30] VITALS: BP 125/53
[2022-08-08] MEDS: APIXABAN 5 MG TABLET PO SCH ×2 (08:38→17:38)
[2022-08-08] MEDS: ASPIRIN 81MG EC TABLET PO SCH (08:38)
[2022-08-08] MEDS: LOSARTAN POTASSIUM 50 MG TABLET PO SCH ×3 (08:39→17:38)
[2022-08-08] MEDS: COLCHICINE 0.6MG TABLET PO SCH (08:39)
[2022-08-08] MEDS: FUROSEMIDE 40MG TABLET PO SCH ×2 (08:39→20:58)
[2022-08-08] MEDS: BACLOFEN 10MG TABLET PO SCH ×3 (08:39→21:39)
[2022-08-08] MEDS: CARVEDILOL 3.125 MG TABLET PO SCH ×2 (09:00→20:58)
[2022-08-08] MEDS: DILTIAZEM HCL 180MG CAPSULE CD 24HR PO SCH (09:00)
[2022-08-08 12:00] VITALS: BP 124/68
[2022-08-08 16:00] VITALS: BP 102/57
[2022-08-08 20:00] VITALS: BP 153/72
[2022-08-08] MEDS: ATORVASTATIN CALCIUM 20MG TABLET PO SCH (20:58)
[2022-08-08] MEDS: MIRTAZAPINE 15MG TABLET PO SCH (20:58)
[2022-08-08] MEDS: DOXAZOSIN MESYLATE 2MG TABLET PO SCH (20:59)
[2022-08-09] VITALS: BP 135/69
[2022-08-09 04:00] VITALS: BP 111/75
[2022-08-09] MEDS: GABAPENTIN 400MG CAPSULE PO SCH ×3 (05:22→23:24)
[2022-08-09] MEDS: MEROPENEM 1,000 MG in SODIUM CHLORIDE 0.9% 100 ML IV SCH ×3 (05:22→23:25)
[2022-08-09] MEDS: FAMOTIDINE 20MG TABLET PO SCH ×2 (06:32→16:44)
[2022-08-09 08:00] VITALS: BP 111/53
[2022-08-09] MEDS: CARVEDILOL 3.125 MG TABLET PO SCH ×2 (09:00→23:25)
[2022-08-09] MEDS: DILTIAZEM HCL 180MG CAPSULE CD 24HR PO SCH (09:00)
[2022-08-09] MEDS: ASPIRIN 81MG EC TABLET PO SCH (09:34)
[2022-08-09] MEDS: BACLOFEN 10MG TABLET PO SCH ×2 (09:35→23:24)
[2022-08-09] MEDS: LOSARTAN POTASSIUM 50 MG TABLET PO SCH ×2 (09:35→16:41)
[2022-08-09] MEDS: APIXABAN 5 MG TABLET PO SCH ×2 (09:35→16:44)
[2022-08-09] MEDS: COLCHICINE 0.6MG TABLET PO SCH (09:35)
[2022-08-09] MEDS: FUROSEMIDE 40MG TABLET PO SCH ×2 (09:35→21:00)
[2022-08-09 12:00] VITALS: BP 106/67
[2022-08-09 16:00] VITALS: BP 108/57
[2022-08-09 20:00] VITALS: BP 124/49
[2022-08-09] MEDS ORDERED: ZOLPIDEM TARTRATE 5MG TABLET PO PRN (22:00)
[2022-08-09] MEDS: DOXAZOSIN MESYLATE 2MG TABLET PO SCH (23:24)
[2022-08-09] MEDS: ATORVASTATIN CALCIUM 20MG TABLET PO SCH (23:24)
[2022-08-09] MEDS: MIRTAZAPINE 15MG TABLET PO SCH (23:24)
[2022-08-10] VITALS: BP 95/47
[2022-08-10 04:00] VITALS: BP 97/55
[2022-08-10] MEDS: FAMOTIDINE 20MG TABLET PO SCH (07:36)
[2022-08-10] MEDS: MEROPENEM 1,000 MG in SODIUM CHLORIDE 0.9% 100 ML IV SCH (07:36)
[2022-08-10] MEDS: GABAPENTIN 400MG CAPSULE PO SCH (07:36)
[2022-08-10 08:00] VITALS: BP 146/59
[2022-08-10] MEDS: ASPIRIN 81MG EC TABLET PO SCH (09:41)
[2022-08-10] MEDS: CARVEDILOL 3.125 MG TABLET PO SCH (09:41)
[2022-08-10] MEDS: APIXABAN 5 MG TABLET PO SCH (09:41)
[2022-08-10] MEDS: COLCHICINE 0.6MG TABLET PO SCH (09:41)
[2022-08-10] MEDS: DILTIAZEM HCL 180MG CAPSULE CD 24HR PO SCH (09:41)
[2022-08-10] MEDS: BACLOFEN 10MG TABLET PO SCH (09:41)
[2022-08-10] MEDS: FUROSEMIDE 40MG TABLET PO SCH (09:41)
[2022-08-10 12:00] VITALS: BP 137/85
[2022-08-10 13:10] VITALS: BP 137/85
== END 2022-08-10 14:38 | disposition home health service (06) | DRG 139 ==
LOC: ER 16:55 → MICUSO 20:22 → EDBEDREQ 20:27 → 8WST 08-05 21:16
PROVIDERS: ADMIT Internal Medicine; ATTEND Internal Medicine
DX: J18.9 Pneumonia, unspecified organism (principal); J96.91 Respiratory failure, unspecified with hypoxia; I50.33 Acute on chronic diastolic (congestive) heart failure; L89.154 Pressure ulcer of sacral region, stage 4; L89.313 Pressure ulcer of right buttock, stage 3; L89.323 Pressure ulcer of left buttock, stage 3; I11.0 Hypertensive heart disease with heart failure; G82.20 Paraplegia, unspecified; E66.01 Morbid (severe) obesity due to excess calories; I16.0 Hypertensive urgency; Z68.42 Body mass index [BMI] 45.0-49.9, adult
CPT/HCPCS: 36415; 71045; 80048; 80053; 82040; 83605; 83880; 84134; 84484; 85025; 87426; 93970; 99285; C1893; C9803; J0456; J0696; J1940; J2185; J7030; J7050; J7060

== ENCOUNTER 2022-09-26 15:05 | Emergency (ER) | payer MEDICARE, OTHER ==
[~2022-09-26] VITALS: Ht 165.1 cm; Wt 113.0 kg
[~2022-09-26 15:05] MED LIST changes: -AMOX1TAB16 MT; -NITR-87 MT
[2022-09-26] MEDS ORDERED: ASPIRIN 81MG TABLET PO ONE (16:15)
[2022-09-26] MEDS ORDERED: FUROSEMIDE 40MG/4ML VIAL IV ONE (16:15)
[2022-09-26] MEDS ORDERED: NITROGLYCERIN 0.4MG TABLET SL SL PRN (16:45)
[2022-09-26 16:59] LABS: HEMATOCRIT. 22.1 % (36.0-48.0); MEAN CORPUSCULAR HEMOGLOBIN 20.9 pg (28.0-32.0); MEAN CORPUSCULAR VOLUME 70.6 fL (81.0-99.0); MEAN PLATELET VOLUME 7.8 fl (7.4-10.4); PLATELET 578 x1000/uL (130-400); RED BLOOD CELL COUNT 3.13 mill/uL (4.2-5.4)
[2022-09-26 17:03] LABS: HEMOGLOBIN. 6.6 g/dL (12.0-16.0)
[2022-09-26 17:15] LABS: CHLORIDE 95 mEq/L (98-107)
[2022-09-26 17:38] LABS: PLATELET ESTIMATE INCREASED
[2022-09-26 23:35] VITALS: BP 143/48
== END 2022-09-27 00:30 | disposition short-term general hospital (02) ==
LOC: ER 15:05 → CANBEDREQ 09-28 10:02
DX: I11.0 Hypertensive heart disease with heart failure (principal); I50.9 Heart failure, unspecified; D64.9 Anemia, unspecified; Z20.822 Contact with and (suspected) exposure to COVID-19; Z88.8 Allergy status to other drugs, medicaments and biological substances; Z79.82 Long term (current) use of aspirin; Z79.899 Other long term (current) drug therapy; Z86.73 Personal history of transient ischemic attack (TIA), and cerebral infarction without residual deficits
CPT/HCPCS: 36415; 71045; 80053; 83880; 84484; 85025; 86850; 86900; 86901; 86920; 87426; 93005; 96374; 99285; C9803; J1940; Z7610; 36430; P9016

== ENCOUNTER 2022-11-01 23:10 | Inpatient (IN) | payer MEDICARE, OTHER ==
[~2022-11-01] VITALS: Ht 167.6 cm; Wt 108.9 kg
[~2022-11-01 23:10] MED LIST changes: -DOXA2TAB MT; +DOXA8TAB2 MT
[2022-11-02] VITALS (51 sets, daily range): BP systolic 59–261; BP diastolic 19–149
[2022-11-02 00:52] LABS: BASOPHILS % 0.7 % (0.0-2.0); EOSINOPHILS % 2.2 % (0.0-5.0); HEMATOCRIT. 30.8 % (36.0-48.0); HEMOGLOBIN. 9.4 g/dL (12.0-16.0); LYMPHOCYTES % 14.6 % (20.0-50.0); MEAN CORPUSCULAR HEMOGLOBIN 25.3 pg (28.0-32.0); MEAN CORPUSCULAR VOLUME 83.3 fL (81.0-99.0); MEAN PLATELET VOLUME 8.9 fl (7.4-10.4); MONOCYTES % 13.6 % (2.0-8.0); NEUTROPHILS % 68.9 % (40.0-76.0); PLATELET 489 x1000/uL (130-400); RED CELL DISTRIBUTION WIDTH 27.9 % (11.6-14.6)
[2022-11-02 02:50] LABS: PLATELET ESTIMATE INCREASED
[2022-11-02 03:00] LABS: CHLORIDE 104 mEq/L (98-107)
[2022-11-02 03:08] LABS: ETHANOL BLOOD < 10 mg/dL
[2022-11-02 03:13] LABS: PROTHROMBIN TIME 10.9 sec (9.6-11.0)
[2022-11-02] MEDS ORDERED: IOHEXOL-350 100 ML BOTTLE ONE (04:16)
[2022-11-02] MEDS ORDERED: VANCOMYCIN 1G PREMIX 200 ML IV ONE (04:30)
[2022-11-02] MEDS ORDERED: PIPERACILLIN/TAZ 3.375G PREMIX 50 ML IV ONE (04:30)
[2022-11-02] MEDS ORDERED: ACETAMINOPHEN 325MG TABLET PO PRN (09:00)
[2022-11-02] MEDS ORDERED: ONDANSETRON HCL 4MG/2ML INJ IV PRN (09:00)
[2022-11-02] MEDS: MIDODRINE HCL 5MG TABLET PO SCH ×3 (09:00→16:44)
[2022-11-02] MEDS ORDERED: NOREPINEPHRINE 8 MG in DEXT 5% WATER 242 ML IV ONE (09:00)
[2022-11-02] MEDS: DEXT 5%/0.45% NACL 1000ML 1,000 ML IV SCH (09:13)
[2022-11-02 09:28] LABS: CLARITY URINE CLEAR (CLEAR); COLOR URINE YELLOW (YELLOW); KETONES URINE NEGATIVE (NEGATIVE); LEUKOCYTE ESTERASE URINE 1+ (NEGATIVE); NITRITE URINE NEGATIVE (NEGATIVE); OCCULT BLOOD URINE NEGATIVE (NEGATIVE); PROTEIN URINE TRACE (NEGATIVE); SPECIFIC GRAVITY URINE 1.022 (1.005-1.030); UROBILINOGEN URINE 0.2 E.U./dL (0.2-1.0)
[2022-11-02 09:42] LABS: *AMPHETAMINES SCREEN URINE NEGATIVE (NEGATIVE); *BARBITURATES SCREEN URINE NEGATIVE (NEGATIVE); *BENZODIAZEPINES SCREEN URINE NEGATIVE (NEGATIVE); *COCAINE SCREEN URINE NEGATIVE (NEGATIVE); CANNABINOID URINE SCREEN NEGATIVE (NEGATIVE); METHADONE URINE SCREEN NEGATIVE (NEGATIVE); OPIATES URINE SCREEN NEGATIVE (NEGATIVE); PHENCYCLIDINE URINE SCREEN NEGATIVE (NEGATIVE)
[2022-11-02] MEDS ORDERED: IPRATROPIUM/ALBUTEROL 0.5-3(2.5)MG/3ML NEB HHN PRN (11:15)
[2022-11-02 11:41] LABS: BG BASE EXCESS -1.1 mmol/L (-2.0-2.0); BG CARBOXYHEMOGLOBIN 0.9 % (0.5-1.5); BG DEOXYHEMOGLOBIN 4.2 % (0.0-5.0); BG FRACTION INSPIRED OXYGEN 36; BG HCO3 ACT 33.3 mmol/L (22.0-26.0); BG METHEMOGLOBIN 0.8 % (0.0-1.5); BG OXYGEN SATURATION 95.7 % (92.0-98.5); BG OXYHEMOGLOBIN 94.1 % (94.0-97.0); BG PCO2 139.8 mmHg (35.0-45.0); BG PH 6.995 (7.350-7.450); BG PO2 106.5 mmHg (75.0-100.0); BG SAMPLE SITE RIGHT RADIAL; BG TOTAL HEMOGLOBIN 11.6 g/dL (12.0-18.0); BG VENT MODE NASAL CANNULA
[2022-11-02] MEDS ORDERED: ATROPINE SULFATE 1MG/ML VIAL IV SCH (12:45)
[2022-11-02] MEDS ORDERED: ATROPINE SULFATE 1MG/10ML SYR IV SCH (13:00)
[2022-11-02] MEDS ORDERED: ENOXAPARIN 40MG/0.4ML SYR SUBCUT SCH (13:00)
[2022-11-02 13:28] LABS: BG BASE EXCESS -0.4 mmol/L (-2.0-2.0); BG DEOXYHEMOGLOBIN 4.1 % (0.0-5.0); BG FRACTION INSPIRED OXYGEN 100; BG HCO3 ACT 22.7 mmol/L (22.0-26.0); BG METHEMOGLOBIN 0.1 % (0.0-1.5); BG OXYGEN SATURATION 95.9 % (92.0-98.5); BG OXYHEMOGLOBIN 94.8 % (94.0-97.0); BG PCO2 31.9 mmHg (35.0-45.0); BG PO2 66.3 mmHg (75.0-100.0); BG SAMPLE SITE RIGHT RADIAL; BG TOTAL HEMOGLOBIN 10.6 g/dL (12.0-18.0); BG VENT MODE VENT - AC
[2022-11-02] MEDS ORDERED: PIPERACILLIN/TAZOBACTAM 3.375 G in DEXTROSE 5% WATER 50 ML IV SCH (15:00)
[2022-11-02] MEDS ORDERED: MINOXIDIL 2.5MG TABLET NG PRN (16:30)
[2022-11-02] MEDS ORDERED: VECURONIUM BROMIDE 10 MG/VIAL IV ONE (16:36)
[2022-11-02] MEDS ORDERED: SODIUM CHLORIDE 0.9% 10ML VIAL ONE (16:36)
[2022-11-02] MEDS ORDERED: ETOMIDATE 2MG/ML 10ML VIAL IV ONE (16:36)
[2022-11-02] MEDS ORDERED: ATROPINE SULFATE 1MG/10ML SYR ONE (16:36)
[2022-11-02] MEDS: AMLODIPINE 10MG TABLET NG SCH (16:50)
[2022-11-02] MEDS: DOPAMINE 400MG/250ML PREMIX 250 ML IV PRN (16:58)
[2022-11-02] MEDS: IPRATROPIUM/ALBUTEROL 0.5-3(2.5)MG/3ML NEB HHN SCH (22:09)
[2022-11-02] MEDS: PIPERACILLIN/TAZOBACTAM 3.375 G in DEXTROSE 5% WATER 50 ML IV SCH (22:10)
[2022-11-03] VITALS (95 sets, daily range): BP systolic 57–224; BP diastolic 34–124
[2022-11-03] MEDS: IPRATROPIUM/ALBUTEROL 0.5-3(2.5)MG/3ML NEB HHN SCH ×6 (00:33→23:59)
[2022-11-03] MEDS: DEXT 5%/0.45% NACL 1000ML 1,000 ML IV SCH (05:00)
[2022-11-03 06:40] LABS: HEMOGLOBIN. 9.6 g/dL (12.0-16.0); MEAN CORPUSCULAR HEMOGLOBIN 24.7 pg (28.0-32.0); MEAN CORPUSCULAR VOLUME 80.1 fL (81.0-99.0); MEAN PLATELET VOLUME 8.2 fl (7.4-10.4); PLATELET 491 x1000/uL (130-400); RED BLOOD CELL COUNT 3.88 mill/uL (4.2-5.4); RED CELL DISTRIBUTION WIDTH 27.2 % (11.6-14.6)
[2022-11-03] MEDS: DOPAMINE 400MG/250ML PREMIX 250 ML IV PRN ×2 (06:41→20:16)
[2022-11-03] MEDS: PIPERACILLIN/TAZOBACTAM 3.375 G in DEXTROSE 5% WATER 50 ML IV SCH ×3 (06:47→21:20)
[2022-11-03] MEDS ORDERED: MINOXIDIL 2.5MG TABLET PO SCH (09:00)
[2022-11-03] MEDS: AMLODIPINE 10MG TABLET NG SCH (09:00)
[2022-11-03 09:07] LABS: PLATELET ESTIMATE INCREASED
[2022-11-03] MEDS: PANTOPRAZOLE SODIUM 40 MG/VIAL IV SCH (09:29)
[2022-11-03] MEDS: MIDODRINE HCL 5MG TABLET PO SCH ×3 (09:29→17:41)
[2022-11-03 10:47] LABS: BG BASE EXCESS -3.5 mmol/L (-2.0-2.0); BG CARBOXYHEMOGLOBIN 0.4 % (0.5-1.5); BG DEOXYHEMOGLOBIN 3.2 % (0.0-5.0); BG FRACTION INSPIRED OXYGEN 60; BG HCO3 ACT 17.1 mmol/L (22.0-26.0); BG METHEMOGLOBIN 0.2 % (0.0-1.5); BG OXYGEN SATURATION 96.8 % (92.0-98.5); BG OXYHEMOGLOBIN 96.2 % (94.0-97.0); BG PCO2 19.6 mmHg (35.0-45.0); BG PH 7.559 (7.350-7.450); BG PO2 81.2 mmHg (75.0-100.0); BG SAMPLE SITE RIGHT RADIAL; BG TOTAL HEMOGLOBIN 10.3 g/dL (12.0-18.0); BG VENT MODE VENT - AC
[2022-11-03] MEDS: SODIUM CHLORIDE 3% FOR INH 4ML UD NEB INH SCH ×2 (12:29→23:59)
[2022-11-03] MEDS ORDERED: LORAZEPAM 2MG/ML CPJ IV PRN (14:00)
[2022-11-03] MEDS: LEVETIRACETAM 500MG PREMIX 100 ML IV SCH ×2 (14:54→23:05)
[2022-11-03] MEDS: ACETYLCYSTEINE 200MG/ML 20% VIAL 10ML INH SCH ×2 (15:55→23:59)
[2022-11-03] MEDS: ENOXAPARIN 30MG/0.3ML SYR SUBCUT SCH (17:41)
[2022-11-04] VITALS (87 sets, daily range): BP systolic 105–204; BP diastolic 50–120
[2022-11-04] MEDS: DEXT 5%/0.45% NACL 1000ML 1,000 ML IV SCH ×2 (01:41→20:48)
[2022-11-04] MEDS: IPRATROPIUM/ALBUTEROL 0.5-3(2.5)MG/3ML NEB HHN SCH ×5 (04:12→20:06)
[2022-11-04 05:45] LABS: BASOPHILS % 0.3 % (0.0-2.0); EOSINOPHILS % 0.3 % (0.0-5.0); HEMATOCRIT. 27.9 % (36.0-48.0); HEMOGLOBIN. 8.8 g/dL (12.0-16.0); LYMPHOCYTES % 7.7 % (20.0-50.0); MEAN CORPUSCULAR VOLUME 79.1 fL (81.0-99.0); MEAN PLATELET VOLUME 8.2 fl (7.4-10.4); MONOCYTES % 14.8 % (2.0-8.0); NEUTROPHILS % 76.9 % (40.0-76.0); PLATELET 398 x1000/uL (130-400); RED BLOOD CELL COUNT 3.52 mill/uL (4.2-5.4); RED CELL DISTRIBUTION WIDTH 26.8 % (11.6-14.6)
[2022-11-04] MEDS: ENOXAPARIN 30MG/0.3ML SYR SUBCUT SCH (05:46)
[2022-11-04] MEDS: PIPERACILLIN/TAZOBACTAM 3.375 G in DEXTROSE 5% WATER 50 ML IV SCH ×3 (06:20→23:10)
[2022-11-04] MEDS: ACETYLCYSTEINE 200MG/ML 20% VIAL 10ML INH SCH ×2 (08:19→15:29)
[2022-11-04] MEDS: SODIUM CHLORIDE 3% FOR INH 4ML UD NEB INH SCH ×2 (08:19→15:29)
[2022-11-04 08:21] LABS: BG BASE EXCESS -3.1 mmol/L (-2.0-2.0); BG CARBOXYHEMOGLOBIN 0.7 % (0.5-1.5); BG DEOXYHEMOGLOBIN 3.6 % (0.0-5.0); BG FRACTION INSPIRED OXYGEN 60; BG METHEMOGLOBIN 0.5 % (0.0-1.5); BG OXYGEN SATURATION 96.4 % (92.0-98.5); BG OXYHEMOGLOBIN 95.2 % (94.0-97.0); BG PCO2 24.5 mmHg (35.0-45.0); BG PH 7.508 (7.350-7.450); BG PO2 80.5 mmHg (75.0-100.0); BG SAMPLE SITE LEFT RADIAL; BG VENT MODE VENT - AC
[2022-11-04] MEDS: PANTOPRAZOLE SODIUM 40 MG/VIAL IV SCH (08:49)
[2022-11-04] MEDS: LEVETIRACETAM 500MG PREMIX 100 ML IV SCH ×2 (08:49→20:47)
[2022-11-04] MEDS: MIDODRINE HCL 5MG TABLET PO SCH ×3 (09:00→17:00)
[2022-11-04] MEDS ORDERED: HYDRALAZINE 20MG/ML VIAL IV PRN (17:30)
[2022-11-04] MEDS: AMLODIPINE 10MG TABLET PO SCH (18:36)
[2022-11-04] MEDS: LAMOTRIGINE 25MG TABLET PO SCH (18:36)
[2022-11-04] MEDS: MIDAZOLAM HCL 100 MG in SODIUM CHLORIDE 0.9% 80 ML IV PRN (19:48)
[2022-11-05] VITALS (44 sets, daily range): BP systolic 109–175; BP diastolic 63–98
[2022-11-05] MEDS: IPRATROPIUM/ALBUTEROL 0.5-3(2.5)MG/3ML NEB HHN SCH ×6 (00:08→20:20)
[2022-11-05] MEDS: ACETYLCYSTEINE 200MG/ML 20% VIAL 10ML INH SCH ×2 (00:08→08:02)
[2022-11-05] MEDS: SODIUM CHLORIDE 3% FOR INH 4ML UD NEB INH SCH ×2 (00:09→10:31)
[2022-11-05] MEDS: PIPERACILLIN/TAZOBACTAM 3.375 G in DEXTROSE 5% WATER 50 ML IV SCH ×3 (06:01→21:48)
[2022-11-05] MEDS: MIDAZOLAM HCL 100 MG in SODIUM CHLORIDE 0.9% 80 ML IV PRN (06:01)
[2022-11-05 08:29] LABS: HEMATOCRIT 25.6 % (36.0-48.0); HEMOGLOBIN 8.2 g/dL (12.0-16.0); MEAN CORPUSCULAR HEMOGLOBIN 25.5 pg (28.0-32.0); MEAN CORPUSCULAR VOLUME 79.9 fL (81.0-99.0); PLATELET 281 x1000/uL (130-400); RED CELL DISTRIBUTION WIDTH 26.6 % (11.6-14.6)
[2022-11-05] MEDS: AMLODIPINE 10MG TABLET PO SCH (08:35)
[2022-11-05] MEDS: LAMOTRIGINE 25MG TABLET PO SCH (08:35)
[2022-11-05] MEDS: PANTOPRAZOLE SODIUM 40 MG/VIAL IV SCH (08:35)
[2022-11-05] MEDS: LEVETIRACETAM 500MG PREMIX 100 ML IV SCH ×2 (08:36→21:49)
[2022-11-05] MEDS: ENOXAPARIN 40MG/0.4ML SYR SUBCUT SCH (08:36)
[2022-11-05 09:04] LABS: BG BASE EXCESS -3.4 mmol/L (-2.0-2.0); BG CARBOXYHEMOGLOBIN 0.3 % (0.5-1.5); BG DEOXYHEMOGLOBIN 9.4 % (0.0-5.0); BG FRACTION INSPIRED OXYGEN 50; BG HCO3 ACT 19.4 mmol/L (22.0-26.0); BG METHEMOGLOBIN 0.5 % (0.0-1.5); BG OXYGEN SATURATION 90.5 % (92.0-98.5); BG OXYHEMOGLOBIN 89.8 % (94.0-97.0); BG PCO2 27.5 mmHg (35.0-45.0); BG PH 7.467 (7.350-7.450); BG PO2 62.1 mmHg (75.0-100.0); BG SAMPLE SITE LEFT RADIAL; BG TOTAL HEMOGLOBIN 9.4 g/dL (12.0-18.0); BG TOTAL RESPIRATORY RATE 28 b/min; BG VENT MODE VENT - AC
[2022-11-05] MEDS ORDERED: POTASSIUM CHLORIDE 20MEQ/PACKET PO NR (10:30)
[2022-11-05] MEDS: DEXT 5%/0.45% NACL 1000ML 1,000 ML IV SCH (18:26)
[2022-11-05] MEDS: ACETYLCYSTEINE 200MG/ML 20% VIAL 4ML INH SCH (20:20)
[2022-11-06] VITALS (49 sets, daily range): BP systolic 115–159; BP diastolic 61–90
[2022-11-06] MEDS: IPRATROPIUM/ALBUTEROL 0.5-3(2.5)MG/3ML NEB HHN SCH ×7 (00:04→23:47)
[2022-11-06 05:30] LABS: HEMATOCRIT. 24.8 % (36.0-48.0); HEMOGLOBIN. 7.6 g/dL (12.0-16.0); MEAN CORPUSCULAR HEMOGLOBIN 24.9 pg (28.0-32.0); MEAN CORPUSCULAR VOLUME 81.5 fL (81.0-99.0); MEAN PLATELET VOLUME 8.3 fl (7.4-10.4); PLATELET 241 x1000/uL (130-400); RED BLOOD CELL COUNT 3.04 mill/uL (4.2-5.4); RED CELL DISTRIBUTION WIDTH 26.4 % (11.6-14.6)
[2022-11-06] MEDS: PIPERACILLIN/TAZOBACTAM 3.375 G in DEXTROSE 5% WATER 50 ML IV SCH ×3 (06:09→21:27)
[2022-11-06 06:11] LABS: PLATELET ESTIMATE NORMAL
[2022-11-06] MEDS: LAMOTRIGINE 25MG TABLET PO SCH (08:56)
[2022-11-06] MEDS: PANTOPRAZOLE SODIUM 40 MG/VIAL IV SCH (08:56)
[2022-11-06] MEDS: LEVETIRACETAM 500MG PREMIX 100 ML IV SCH ×2 (08:56→21:27)
[2022-11-06] MEDS: AMLODIPINE 10MG TABLET PO SCH (08:56)
[2022-11-06] MEDS: ENOXAPARIN 40MG/0.4ML SYR SUBCUT SCH ×2 (08:56→21:27)
[2022-11-06] MEDS ORDERED: LORAZEPAM 2MG/ML CPJ IV PRN (10:15)
[2022-11-06] MEDS ORDERED: MORPHINE SULFATE 4 MG/ML CPJ (NOT FOR IM USE) IV PRN (10:15)
[2022-11-06 10:28] LABS: BG BASE EXCESS -3.8 mmol/L (-2.0-2.0); BG CARBOXYHEMOGLOBIN 0.4 % (0.5-1.5); BG DEOXYHEMOGLOBIN 2.4 % (0.0-5.0); BG FRACTION INSPIRED OXYGEN 35; BG HCO3 ACT 21.2 mmol/L (22.0-26.0); BG METHEMOGLOBIN 0.7 % (0.0-1.5); BG OXYGEN SATURATION 97.6 % (92.0-98.5); BG OXYHEMOGLOBIN 96.5 % (94.0-97.0); BG PCO2 37.6 mmHg (35.0-45.0); BG PH 7.368 (7.350-7.450); BG PO2 106.3 mmHg (75.0-100.0); BG SAMPLE SITE RIGHT RADIAL; BG TOTAL HEMOGLOBIN 8.4 g/dL (12.0-18.0); BG VENT MODE VENT - CPAP
[2022-11-06] MEDS ORDERED: MORPHINE SULFATE 2 MG/ML CPJ (NOT FOR IM USE) IV PRN (10:28)
[2022-11-06] MEDS ORDERED: NALOXONE HCL 0.4MG/ML VIAL IV PRN (10:30)
[2022-11-06] MEDS: ACETYLCYSTEINE 200MG/ML 20% VIAL 4ML INH SCH ×2 (16:30→19:57)
[2022-11-07] VITALS (47 sets, daily range): BP systolic 118–158; BP diastolic 54–92
[2022-11-07] MEDS: IPRATROPIUM/ALBUTEROL 0.5-3(2.5)MG/3ML NEB HHN SCH ×5 (04:31→20:09)
[2022-11-07 05:02] LABS: BASOPHILS % 1.1 % (0.0-2.0); EOSINOPHILS % 6.5 % (0.0-5.0); HEMATOCRIT. 25.6 % (36.0-48.0); HEMOGLOBIN. 7.9 g/dL (12.0-16.0); MEAN CORPUSCULAR HEMOGLOBIN 25.2 pg (28.0-32.0); MEAN CORPUSCULAR VOLUME 81.4 fL (81.0-99.0); MEAN PLATELET VOLUME 7.3 fl (7.4-10.4); MONOCYTES % 10.5 % (2.0-8.0); NEUTROPHILS % 67.9 % (40.0-76.0); PLATELET 237 x1000/uL (130-400); RED BLOOD CELL COUNT 3.14 mill/uL (4.2-5.4); RED CELL DISTRIBUTION WIDTH 26.4 % (11.6-14.6)
[2022-11-07] MEDS: PIPERACILLIN/TAZOBACTAM 3.375 G in DEXTROSE 5% WATER 50 ML IV SCH ×3 (05:05→21:41)
[2022-11-07 05:19] LABS: CHLORIDE 116 mEq/L (98-107)
[2022-11-07] MEDS: ACETYLCYSTEINE 200MG/ML 20% VIAL 4ML INH SCH ×2 (08:09→15:36)
[2022-11-07] MEDS: ENOXAPARIN 40MG/0.4ML SYR SUBCUT SCH ×2 (08:23→20:45)
[2022-11-07] MEDS: LEVETIRACETAM 500MG PREMIX 100 ML IV SCH ×2 (08:24→20:45)
[2022-11-07] MEDS: AMLODIPINE 10MG TABLET PO SCH (08:24)
[2022-11-07] MEDS: LAMOTRIGINE 25MG TABLET PO SCH (08:24)
[2022-11-07] MEDS: PANTOPRAZOLE SODIUM 40 MG/VIAL IV SCH (08:43)
[2022-11-07 09:37] LABS: BG BASE EXCESS -2.9 mmol/L (-2.0-2.0); BG CARBOXYHEMOGLOBIN 0.3 % (0.5-1.5); BG DEOXYHEMOGLOBIN 2.2 % (0.0-5.0); BG HCO3 ACT 21.8 mmol/L (22.0-26.0); BG METHEMOGLOBIN 0.4 % (0.0-1.5); BG OXYGEN SATURATION 97.8 % (92.0-98.5); BG OXYHEMOGLOBIN 97.1 % (94.0-97.0); BG PH 7.388 (7.350-7.450); BG PO2 109.7 mmHg (75.0-100.0); BG SAMPLE SITE RIGHT RADIAL; BG TOTAL HEMOGLOBIN 8.7 g/dL (12.0-18.0); BG VENT MODE VENT - CPAP
[2022-11-08] VITALS (25 sets, daily range): BP systolic 96–176; BP diastolic 37–93
[2022-11-08] MEDS: IPRATROPIUM/ALBUTEROL 0.5-3(2.5)MG/3ML NEB HHN SCH ×4 (00:15→12:19)
[2022-11-08] MEDS: ACETYLCYSTEINE 200MG/ML 20% VIAL 4ML INH SCH ×2 (00:16→08:50)
[2022-11-08 06:01] LABS: BASOPHILS % 0.3 % (0.0-2.0); CHLORIDE 117 mEq/L (98-107); EOSINOPHILS % 5.1 % (0.0-5.0); HEMOGLOBIN. 7.7 g/dL (12.0-16.0); LYMPHOCYTES % 17.9 % (20.0-50.0); MEAN CORPUSCULAR HEMOGLOBIN 25.2 pg (28.0-32.0); MEAN CORPUSCULAR VOLUME 81.7 fL (81.0-99.0); MEAN PLATELET VOLUME 7.4 fl (7.4-10.4); MONOCYTES % 11.5 % (2.0-8.0); NEUTROPHILS % 65.2 % (40.0-76.0); PLATELET 197 x1000/uL (130-400); RED BLOOD CELL COUNT 3.06 mill/uL (4.2-5.4); RED CELL DISTRIBUTION WIDTH 26.2 % (11.6-14.6)
[2022-11-08] MEDS: ENOXAPARIN 40MG/0.4ML SYR SUBCUT SCH ×2 (09:06→21:56)
[2022-11-08] MEDS: LAMOTRIGINE 25MG TABLET PO SCH (09:06)
[2022-11-08] MEDS: AMLODIPINE 10MG TABLET PO SCH (09:06)
[2022-11-08] MEDS: LEVETIRACETAM 500MG PREMIX 100 ML IV SCH ×2 (09:06→21:57)
[2022-11-08] MEDS: PANTOPRAZOLE SODIUM 40 MG/VIAL IV SCH (09:06)
[2022-11-08 11:54] LABS: BG BASE EXCESS -2.5 mmol/L (-2.0-2.0); BG CARBOXYHEMOGLOBIN 0.9 % (0.5-1.5); BG DEOXYHEMOGLOBIN 9.5 % (0.0-5.0); BG FRACTION INSPIRED OXYGEN 21; BG HCO3 ACT 23.2 mmol/L (22.0-26.0); BG METHEMOGLOBIN 0.5 % (0.0-1.5); BG OXYGEN SATURATION 90.4 % (92.0-98.5); BG OXYHEMOGLOBIN 89.1 % (94.0-97.0); BG PCO2 44.8 mmHg (35.0-45.0); BG PH 7.333 (7.350-7.450); BG PO2 61.6 mmHg (75.0-100.0); BG SAMPLE SITE RIGHT RADIAL; BG TOTAL HEMOGLOBIN 8.6 g/dL (12.0-18.0); BG VENT MODE ROOM AIR
[2022-11-08] MEDS: HYDRALAZINE HCL 25MG TABLET PO SCH ×2 (15:17→21:57)
[2022-11-08] MEDS: GABAPENTIN 400MG CAPSULE PO SCH ×2 (15:17→21:56)
[2022-11-08] MEDS: BACLOFEN 10MG TABLET PO SCH (22:45)
[2022-11-09] VITALS: BP 150/73
[2022-11-09 04:00] VITALS: BP 152/83
[2022-11-09] MEDS: BACLOFEN 10MG TABLET PO SCH ×2 (06:44→21:26)
[2022-11-09] MEDS: HYDRALAZINE HCL 25MG TABLET PO SCH (06:44)
[2022-11-09] MEDS: GABAPENTIN 400MG CAPSULE PO SCH ×2 (06:44→21:26)
[2022-11-09 08:00] VITALS: BP 101/59
[2022-11-09] MEDS: AMLODIPINE 10MG TABLET PO SCH (08:37)
[2022-11-09] MEDS: LAMOTRIGINE 25MG TABLET PO SCH (08:37)
[2022-11-09] MEDS: ENOXAPARIN 40MG/0.4ML SYR SUBCUT SCH ×2 (08:41→21:26)
[2022-11-09] MEDS: PANTOPRAZOLE SODIUM 40 MG/VIAL IV SCH (09:26)
[2022-11-09] MEDS: LEVETIRACETAM 500MG PREMIX 100 ML IV SCH (09:26)
[2022-11-09] MEDS ORDERED: CEFEPIME 1GM PREMIX 50 ML IV SCH (14:00)
[2022-11-09] MEDS ORDERED: VANCOMYCIN 1G PREMIX 200 ML IV SCH (15:00)
[2022-11-09] MEDS: METOPROLOL SUCCINATE 50MG ER TABLET PO SCH (15:00)
[2022-11-09 16:00] VITALS: BP 100/64
[2022-11-09 20:00] VITALS: BP 105/66
[2022-11-09] MEDS ORDERED: CEFEPIME HCL 1000MG/VIAL INJ IM SCH (21:00)
[2022-11-10] MEDS ORDERED: METOCLOPRAMIDE HCL 10MG/2ML VIAL IV PRN (02:15)
[2022-11-10 03:08] LABS: BASOPHILS % 0.8 % (0.0-2.0); HEMATOCRIT. 25.8 % (36.0-48.0); HEMOGLOBIN. 7.8 g/dL (12.0-16.0); LYMPHOCYTES % 25.2 % (20.0-50.0); MEAN CORPUSCULAR HEMOGLOBIN 24.7 pg (28.0-32.0); MEAN CORPUSCULAR VOLUME 82.2 fL (81.0-99.0); MEAN PLATELET VOLUME 7.4 fl (7.4-10.4); MONOCYTES % 12.3 % (2.0-8.0); NEUTROPHILS % 59.7 % (40.0-76.0); PLATELET 121 x1000/uL (130-400); RED BLOOD CELL COUNT 3.14 mill/uL (4.2-5.4); RED CELL DISTRIBUTION WIDTH 26.6 % (11.6-14.6)
[2022-11-10 04:00] VITALS: BP 118/68
[2022-11-10] MEDS: GABAPENTIN 400MG CAPSULE PO SCH ×2 (05:37→14:41)
[2022-11-10] MEDS: BACLOFEN 10MG TABLET PO SCH ×2 (05:37→14:41)
[2022-11-10 08:00] VITALS: BP 113/71
[2022-11-10] MEDS: METOPROLOL SUCCINATE 50MG ER TABLET PO SCH (09:00)
[2022-11-10] MEDS: LEVETIRACETAM 500MG TABLET PO SCH ×2 (09:14→18:57)
[2022-11-10] MEDS: PANTOPRAZOLE SODIUM 40 MG/VIAL IV SCH (09:14)
[2022-11-10] MEDS: ENOXAPARIN 40MG/0.4ML SYR SUBCUT SCH (09:15)
[2022-11-10] MEDS: LAMOTRIGINE 25MG TABLET PO SCH (09:15)
[2022-11-10] MEDS: AMLODIPINE 10MG TABLET PO SCH (09:19)
[2022-11-10 12:00] VITALS: BP 95/59
[2022-11-10] MEDS ORDERED: FUROSEMIDE 40MG TABLET PO SCH (13:00)
[2022-11-10 13:38] LABS: BG BASE EXCESS -4.8 mmol/L (-2.0-2.0); BG CARBOXYHEMOGLOBIN 1.1 % (0.5-1.5); BG DEOXYHEMOGLOBIN 7.7 % (0.0-5.0); BG HCO3 ACT 22.8 mmol/L (22.0-26.0); BG METHEMOGLOBIN 0.2 % (0.0-1.5); BG OXYGEN SATURATION 92.2 % (92.0-98.5); BG PCO2 56.7 mmHg (35.0-45.0); BG PH 7.222 (7.350-7.450); BG PO2 74.1 mmHg (75.0-100.0); BG SAMPLE SITE RIGHT RADIAL; BG VENT MODE NASAL CANNULA
[2022-11-10] MEDS ORDERED: MIDODRINE HCL 5MG TABLET PO SCH (18:45)
[2022-11-10 20:35] VITALS: BP 94/40
[2022-11-10] MEDS: ENOXAPARIN 30MG/0.3ML SYR SUBCUT SCH (22:09)
[2022-11-10] MEDS: MIDODRINE HCL 5MG TABLET PO SCH (22:09)
[2022-11-10] MEDS ORDERED: DEXTROSE 50% WATER 50ML SYRINGE IV PRN (23:45)
[2022-11-10] MEDS: INSULIN LISPRO 100 UNITS/ML SUBCUT SCH (23:45)
[2022-11-10] MEDS: BLOOD SUGAR DIAGNOSTIC STRIP TEST SCH (23:48)
[2022-11-11] VITALS (38 sets, daily range): BP systolic 60–218; BP diastolic 34–104
[2022-11-11] MEDS: MIDODRINE HCL 5MG TABLET PO SCH ×3 (05:17→21:00)
[2022-11-11] MEDS ORDERED: FUROSEMIDE 40MG/4ML VIAL IVP NR (05:30)
[2022-11-11 06:18] LABS: BASOPHILS % 0.9 % (0.0-2.0); EOSINOPHILS % 1.8 % (0.0-5.0); HEMATOCRIT. 24.9 % (36.0-48.0); HEMOGLOBIN. 7.3 g/dL (12.0-16.0); LYMPHOCYTES % 20.1 % (20.0-50.0); MEAN CORPUSCULAR HEMOGLOBIN 24.8 pg (28.0-32.0); MEAN CORPUSCULAR VOLUME 84.6 fL (81.0-99.0); MEAN PLATELET VOLUME 8.3 fl (7.4-10.4); MONOCYTES % 9.6 % (2.0-8.0); NEUTROPHILS % 67.6 % (40.0-76.0); PLATELET 93 x1000/uL (130-400); RED BLOOD CELL COUNT 2.94 mill/uL (4.2-5.4); RED CELL DISTRIBUTION WIDTH 26.2 % (11.6-14.6)
[2022-11-11] MEDS: BLOOD SUGAR DIAGNOSTIC STRIP TEST SCH ×4 (06:57→21:00)
[2022-11-11] MEDS: LACTULOSE 20G/30ML UDC PO SCH ×2 (07:30→08:55)
[2022-11-11] MEDS: INSULIN LISPRO 100 UNITS/ML SUBCUT SCH (08:10)
[2022-11-11] MEDS ORDERED: ETOMIDATE 2MG/ML 10ML VIAL IV ONE (08:39)
[2022-11-11] MEDS ORDERED: VECURONIUM BROMIDE 10 MG/VIAL IV ONE (08:39)
[2022-11-11 08:45] LABS: CLARITY URINE CLEAR (CLEAR); COLOR URINE YELLOW (YELLOW); KETONES URINE NEGATIVE (NEGATIVE); LEUKOCYTE ESTERASE URINE NEGATIVE (NEGATIVE); NITRITE URINE NEGATIVE (NEGATIVE); OCCULT BLOOD URINE NEGATIVE (NEGATIVE); PROTEIN URINE 1+ (NEGATIVE); SPECIFIC GRAVITY URINE 1.016 (1.005-1.030); UROBILINOGEN URINE 0.2 E.U./dL (0.2-1.0)
[2022-11-11] MEDS: LAMOTRIGINE 25MG TABLET PO SCH (08:54)
[2022-11-11] MEDS: PANTOPRAZOLE SODIUM 40 MG/VIAL IV SCH (08:55)
[2022-11-11] MEDS: AMLODIPINE 10MG TABLET PO SCH (08:55)
[2022-11-11] MEDS: FUROSEMIDE 40MG/4ML VIAL IVP SCH (08:57)
[2022-11-11] MEDS: ENOXAPARIN 30MG/0.3ML SYR SUBCUT SCH ×2 (08:58→21:55)
[2022-11-11] MEDS: LEVETIRACETAM 500MG TABLET PO SCH ×2 (09:00→17:41)
[2022-11-11 11:31] LABS: BG BASE EXCESS -4.8 mmol/L (-2.0-2.0); BG CARBOXYHEMOGLOBIN 0.8 % (0.5-1.5); BG DEOXYHEMOGLOBIN 25.4 % (0.0-5.0); BG FRACTION INSPIRED OXYGEN 32; BG HCO3 ACT 24.8 mmol/L (22.0-26.0); BG METHEMOGLOBIN 0.4 % (0.0-1.5); BG OXYGEN SATURATION 74.3 % (92.0-98.5); BG OXYHEMOGLOBIN 73.4 % (94.0-97.0); BG PCO2 80.2 mmHg (35.0-45.0); BG PH 7.108 (7.350-7.450); BG PO2 43.5 mmHg (75.0-100.0); BG SAMPLE SITE RIGHT RADIAL; BG TOTAL HEMOGLOBIN 7.5 g/dL (12.0-18.0); BG VENT MODE NASAL CANNULA
[2022-11-11] MEDS ORDERED: SODIUM POLYSTYRENE SULFONATE 15 G/60 ML BOT PO NR (11:45)
[2022-11-11 15:23] LABS: BG BASE EXCESS -7.4 mmol/L (-2.0-2.0); BG CARBOXYHEMOGLOBIN 1.2 % (0.5-1.5); BG DEOXYHEMOGLOBIN 11.4 % (0.0-5.0); BG FRACTION INSPIRED OXYGEN 100; BG HCO3 ACT 22.2 mmol/L (22.0-26.0); BG METHEMOGLOBIN 0.3 % (0.0-1.5); BG OXYGEN SATURATION 88.4 % (92.0-98.5); BG OXYHEMOGLOBIN 87.1 % (94.0-97.0); BG PCO2 72.3 mmHg (35.0-45.0); BG PH 7.105 (7.350-7.450); BG PO2 67.4 mmHg (75.0-100.0); BG SAMPLE SITE RIGHT RADIAL; BG TOTAL HEMOGLOBIN 8.3 g/dL (12.0-18.0); BG VENT MODE MASK - BIPAP
[2022-11-11] MEDS ORDERED: NOREPINEPHRINE 8MG/250ML PMX 250 ML IV PRN (16:00)
[2022-11-11] MEDS ORDERED: DOPAMINE 800MG/500ML PREMIX 500 ML IV PRN (16:00)
[2022-11-11] MEDS ORDERED: NOREPINEPHRINE 8 MG in DEXTROSE 5% WATER 250 ML IV PRN (16:00)
[2022-11-11] MEDS ORDERED: LACTATED RINGERS 500ML 500 ML IV ONE (16:10)
[2022-11-11] MEDS ORDERED: CEFEPIME 1,000 MG in DEXTROSE 5% WATER 50 ML IV SCH (16:15)
[2022-11-11] MEDS ORDERED: ALBUMIN HUMAN 25GM/100ML (25%) IV NR (16:15)
[2022-11-11] MEDS ORDERED: KETAMINE HCL 50 MG/ML 10ML IV NR (16:30)
[2022-11-11] MEDS ORDERED: FENTANYL 2500MCG/250ML PMX 250 ML IV PRN (16:30)
[2022-11-11] MEDS ORDERED: MIDAZOLAM 100MG/100ML PMX 100 ML IV PRN (16:30)
[2022-11-11] MEDS ORDERED: MIDAZOLAM HCL 100 MG in SODIUM CHLORIDE 0.9% 100 ML IV PRN ×4 (16:45)
[2022-11-11] MEDS: CEFEPIME 1GM PREMIX 50 ML IV SCH (17:00)
[2022-11-11 18:01] LABS: BG BASE EXCESS -8.3 mmol/L (-2.0-2.0); BG CARBOXYHEMOGLOBIN 1.2 % (0.5-1.5); BG FRACTION INSPIRED OXYGEN 100; BG HCO3 ACT 18.3 mmol/L (22.0-26.0); BG OXYGEN SATURATION 88.9 % (92.0-98.5); BG OXYHEMOGLOBIN 87.8 % (94.0-97.0); BG PCO2 42.5 mmHg (35.0-45.0); BG PH 7.252 (7.350-7.450); BG PO2 58.7 mmHg (75.0-100.0); BG SAMPLE SITE RIGHT RADIAL; BG TOTAL HEMOGLOBIN 9.2 g/dL (12.0-18.0); BG VENT MODE VENT - AC
[2022-11-11] MEDS: METHYLPREDNISOLONE SOD SUCC 40 MG/ML VIAL IV SCH (20:16)
[2022-11-11] MEDS: AZITHROMYCIN 500 MG in DEXT 5% WATER 250 ML IV SCH (23:43)
[2022-11-12] VITALS (113 sets, daily range): BP systolic 71–186; BP diastolic 37–126
[2022-11-12] MEDS: METHYLPREDNISOLONE SOD SUCC 40 MG/ML VIAL IV SCH ×3 (02:35→17:25)
[2022-11-12] MEDS: MIDODRINE HCL 5MG TABLET PO SCH (05:00)
[2022-11-12] MEDS: LACTULOSE 20G/30ML UDC PO SCH ×3 (06:00→22:06)
[2022-11-12] MEDS: BLOOD SUGAR DIAGNOSTIC STRIP TEST SCH ×4 (07:50→21:00)
[2022-11-12 07:55] LABS: BG BASE EXCESS -3.3 mmol/L (-2.0-2.0); BG DEOXYHEMOGLOBIN 7.5 % (0.0-5.0); BG HCO3 ACT 20.2 mmol/L (22.0-26.0); BG METHEMOGLOBIN 0.4 % (0.0-1.5); BG OXYGEN SATURATION 92.4 % (92.0-98.5); BG OXYHEMOGLOBIN 91.1 % (94.0-97.0); BG PCO2 30.1 mmHg (35.0-45.0); BG PH 7.445 (7.350-7.450); BG PO2 59.3 mmHg (75.0-100.0); BG SAMPLE SITE RIGHT RADIAL; BG TOTAL HEMOGLOBIN 7.7 g/dL (12.0-18.0); BG VENT MODE VENT - AC
[2022-11-12] MEDS ORDERED: SODIUM POLYSTYRENE SULFONATE 15 G/60 ML BOT PO NR (08:30)
[2022-11-12] MEDS ORDERED: DOPAMINE 400MG/250ML PREMIX 250 ML IV PRN (08:45)
[2022-11-12] MEDS: LAMOTRIGINE 25MG TABLET PO SCH (08:50)
[2022-11-12] MEDS: FUROSEMIDE 40MG/4ML VIAL IVP SCH (08:50)
[2022-11-12] MEDS: LEVETIRACETAM 500MG TABLET PO SCH ×2 (08:50→17:24)
[2022-11-12] MEDS: PANTOPRAZOLE SODIUM 40 MG/VIAL IV SCH (08:50)
[2022-11-12] MEDS: ENOXAPARIN 30MG/0.3ML SYR SUBCUT SCH (08:50)
[2022-11-12] MEDS: DOPAMINE 800MG PREMIX (DOUBLE) 250 ML IV PRN ×2 (09:42→09:47)
[2022-11-12 09:58] LABS: MEAN CORPUSCULAR HEMOGLOBIN 24.8 pg (28.0-32.0); MEAN PLATELET VOLUME 8.2 fl (7.4-10.4); PLATELET 84 x1000/uL (130-400); RED BLOOD CELL COUNT 2.67 mill/uL (4.2-5.4); RED CELL DISTRIBUTION WIDTH 26.5 % (11.6-14.6)
[2022-11-12 10:06] LABS: HEMATOCRIT. 21.1 % (36.0-48.0)
[2022-11-12 10:09] LABS: HEMOGLOBIN. 6.6 g/dL (12.0-16.0); MEAN CORPUSCULAR VOLUME 79.2 fL (81.0-99.0)
[2022-11-12] MEDS ORDERED: ATROPINE SULFATE 1MG/ML VIAL IV PRN (10:45)
[2022-11-12] MEDS ORDERED: MIDODRINE HCL 5MG TABLET PO PRN (11:15)
[2022-11-12 15:05] LABS: PLATELET ESTIMATE DECREASED
[2022-11-12] MEDS: CEFEPIME 1GM PREMIX 50 ML IV SCH (17:25)
[2022-11-12 20:53] LABS: HEMATOCRIT 23.8 % (36.0-48.0); HEMOGLOBIN 7.6 g/dL (12.0-16.0)
[2022-11-12 21:02] LABS: PROTHROMBIN TIME 10.7 sec (9.6-11.0)
[2022-11-12] MEDS: AZITHROMYCIN 500 MG in DEXT 5% WATER 250 ML IV SCH (22:06)
[2022-11-13] VITALS (99 sets, daily range): BP systolic 58–144; BP diastolic 24–85
[2022-11-13] MEDS: METHYLPREDNISOLONE SOD SUCC 40 MG/ML VIAL IV SCH ×2 (02:53→11:48)
[2022-11-13 05:48] LABS: BASOPHILS % 0.3 % (0.0-2.0); LYMPHOCYTES % 8.5 % (20.0-50.0); MEAN CORPUSCULAR HEMOGLOBIN 26.3 pg (28.0-32.0); MEAN CORPUSCULAR VOLUME 81.3 fL (81.0-99.0); MEAN PLATELET VOLUME 8.7 fl (7.4-10.4); MONOCYTES % 4.3 % (2.0-8.0); NEUTROPHILS % 86.9 % (40.0-76.0); PLATELET 75 x1000/uL (130-400); RED BLOOD CELL COUNT 2.54 mill/uL (4.2-5.4); RED CELL DISTRIBUTION WIDTH 22.7 % (11.6-14.6)
[2022-11-13 05:53] LABS: HEMOGLOBIN. 6.7 g/dL (12.0-16.0)
[2022-11-13 05:54] LABS: HEMATOCRIT. 20.7 % (36.0-48.0)
[2022-11-13] MEDS: LACTULOSE 20G/30ML UDC PO SCH ×3 (06:47→21:57)
[2022-11-13] MEDS: BLOOD SUGAR DIAGNOSTIC STRIP TEST SCH ×4 (07:50→20:49)
[2022-11-13] MEDS: FUROSEMIDE 40MG/4ML VIAL IVP SCH (08:46)
[2022-11-13] MEDS: LEVETIRACETAM 500MG TABLET PO SCH ×2 (08:46→17:55)
[2022-11-13] MEDS: PANTOPRAZOLE SODIUM 40 MG/VIAL IV SCH (08:46)
[2022-11-13] MEDS: LAMOTRIGINE 25MG TABLET PO SCH (08:47)
[2022-11-13 09:07] LABS: BG BASE EXCESS -5.2 mmol/L (-2.0-2.0); BG DEOXYHEMOGLOBIN 3.1 % (0.0-5.0); BG FRACTION INSPIRED OXYGEN 60; BG HCO3 ACT 18.5 mmol/L (22.0-26.0); BG METHEMOGLOBIN 0.3 % (0.0-1.5); BG OXYGEN SATURATION 96.9 % (92.0-98.5); BG OXYHEMOGLOBIN 95.6 % (94.0-97.0); BG PCO2 28.2 mmHg (35.0-45.0); BG PH 7.434 (7.350-7.450); BG SAMPLE SITE RIGHT RADIAL; BG TOTAL HEMOGLOBIN 7.1 g/dL (12.0-18.0); BG VENT MODE VENT - AC
[2022-11-13] MEDS ORDERED: POTASSIUM CHLORIDE 20MEQ/PACKET PO NR (11:00)
[2022-11-13] MEDS: RACEPINEPHRINE 2.25% 0.5ML NEB VIAL HHN PRN ×2 (12:55→15:49)
[2022-11-13 15:43] LABS: HEMATOCRIT 25.7 % (36.0-48.0); HEMOGLOBIN 8.5 g/dL (12.0-16.0)
[2022-11-13] MEDS: CEFEPIME 1GM PREMIX 50 ML IV SCH (17:55)
[2022-11-13] MEDS: AZITHROMYCIN 500 MG in DEXT 5% WATER 250 ML IV SCH (23:35)
[2022-11-14] VITALS (86 sets, daily range): BP systolic 62–185; BP diastolic 30–103
[2022-11-14 05:39] LABS: BASOPHILS % 0.2 % (0.0-2.0); HEMATOCRIT. 24.5 % (36.0-48.0); HEMOGLOBIN. 8.3 g/dL (12.0-16.0); LYMPHOCYTES % 21.7 % (20.0-50.0); MEAN CORPUSCULAR HEMOGLOBIN 27.4 pg (28.0-32.0); MEAN CORPUSCULAR VOLUME 81.1 fL (81.0-99.0); MEAN PLATELET VOLUME 8.4 fl (7.4-10.4); MONOCYTES % 10.6 % (2.0-8.0); NEUTROPHILS % 67.5 % (40.0-76.0); PLATELET 80 x1000/uL (130-400); RED BLOOD CELL COUNT 3.02 mill/uL (4.2-5.4); RED CELL DISTRIBUTION WIDTH 20.6 % (11.6-14.6)
[2022-11-14 05:55] LABS: PHOSPHORUS 4.5 mg/dL (2.5-4.9)
[2022-11-14] MEDS: LACTULOSE 20G/30ML UDC PO SCH ×3 (06:13→21:37)
[2022-11-14] MEDS ORDERED: POTASSIUM CHLORIDE INJ 40 MEQ in DEXT 5% WATER 250 ML IV ONE (06:45)
[2022-11-14] MEDS: KCL 20MEQ/100ML X 2 FOR TOTAL KCL 40MEQ/200ML IV SCH ×2 (06:52→09:22)
[2022-11-14] MEDS: BLOOD SUGAR DIAGNOSTIC STRIP TEST SCH ×4 (07:50→21:30)
[2022-11-14 08:16] LABS: BG BASE EXCESS -3.3 mmol/L (-2.0-2.0); BG CARBOXYHEMOGLOBIN 0.9 % (0.5-1.5); BG FRACTION INSPIRED OXYGEN 40; BG HCO3 ACT 20.9 mmol/L (22.0-26.0); BG METHEMOGLOBIN 0.3 % (0.0-1.5); BG OXYGEN SATURATION 92.9 % (92.0-98.5); BG OXYHEMOGLOBIN 91.8 % (94.0-97.0); BG PCO2 33.7 mmHg (35.0-45.0); BG PO2 67.2 mmHg (75.0-100.0); BG SAMPLE SITE RIGHT RADIAL; BG TOTAL HEMOGLOBIN 8.5 g/dL (12.0-18.0); BG VENT MODE VENT - AC
[2022-11-14] MEDS: METHYLPREDNISOLONE SOD SUCC 40 MG/ML VIAL IV SCH (09:22)
[2022-11-14] MEDS: LEVETIRACETAM 500MG TABLET PO SCH ×2 (09:22→17:33)
[2022-11-14] MEDS: LAMOTRIGINE 25MG TABLET PO SCH (09:22)
[2022-11-14] MEDS: FUROSEMIDE 40MG/4ML VIAL IVP SCH ×2 (09:23→17:33)
[2022-11-14] MEDS: PANTOPRAZOLE SODIUM 40 MG/VIAL IV SCH ×2 (09:25→21:37)
[2022-11-14] MEDS ORDERED: IOHEXOL-350 100 ML BOTTLE ONE (15:10)
[2022-11-14] MEDS ORDERED: MORPHINE SULFATE 2 MG/ML CPJ (NOT FOR IM USE) IV NR (17:15)
[2022-11-14] MEDS: CEFEPIME 1GM PREMIX 50 ML IV SCH (17:33)
[2022-11-14] MEDS: AZITHROMYCIN 500 MG in DEXT 5% WATER 250 ML IV SCH (21:37)
[2022-11-14 21:54] LABS: HEMATOCRIT 25.1 % (36.0-48.0); HEMOGLOBIN 8.3 g/dL (12.0-16.0)
[2022-11-14 22:06] LABS: TOTAL IRON BINDING CAPACITY 256 ug/dL (250-450)
[2022-11-14 22:38] LABS: FOLIC ACID (FOLATE) SERUM 5.4 ng/mL (>5.38)
[2022-11-15] VITALS (84 sets, daily range): BP systolic 92–140; BP diastolic 39–113
[2022-11-15] MEDS ORDERED: DEXT 5%/0.9% NACL 1,000 ML IV SCH (00:01)
[2022-11-15] MEDS: DEXT 5%/0.45% NACL 500ML 500 ML IV SCH ×2 (00:29→20:59)
[2022-11-15 00:52] LABS: HEMATOCRIT 24.2 % (36.0-48.0); HEMOGLOBIN 7.9 g/dL (12.0-16.0)
[2022-11-15 06:05] LABS: BASOPHILS % 0.2 % (0.0-2.0); EOSINOPHILS % 0.9 % (0.0-5.0); HEMATOCRIT. 23.7 % (36.0-48.0); HEMOGLOBIN. 7.9 g/dL (12.0-16.0); LYMPHOCYTES % 23.2 % (20.0-50.0); MEAN CORPUSCULAR HEMOGLOBIN 27.3 pg (28.0-32.0); MEAN CORPUSCULAR VOLUME 82.1 fL (81.0-99.0); MEAN PLATELET VOLUME 8.4 fl (7.4-10.4); MONOCYTES % 8.2 % (2.0-8.0); NEUTROPHILS % 67.5 % (40.0-76.0); PLATELET 90 x1000/uL (130-400); RED BLOOD CELL COUNT 2.89 mill/uL (4.2-5.4)
[2022-11-15 06:13] LABS: INR 1.1; PROTHROMBIN TIME 11.4 sec (9.6-11.0)
[2022-11-15] MEDS: FUROSEMIDE 40MG/4ML VIAL IVP SCH ×2 (06:47→17:28)
[2022-11-15] MEDS: LACTULOSE 20G/30ML UDC PO SCH ×3 (06:47→22:59)
[2022-11-15] MEDS: BLOOD SUGAR DIAGNOSTIC STRIP TEST SCH ×4 (08:01→21:00)
[2022-11-15 08:38] LABS: BG CARBOXYHEMOGLOBIN 0.4 % (0.5-1.5); BG DEOXYHEMOGLOBIN 8.7 % (0.0-5.0); BG FRACTION INSPIRED OXYGEN 35; BG HCO3 ACT 21.3 mmol/L (22.0-26.0); BG METHEMOGLOBIN 0.3 % (0.0-1.5); BG OXYGEN SATURATION 91.2 % (92.0-98.5); BG OXYHEMOGLOBIN 90.6 % (94.0-97.0); BG PCO2 30.5 mmHg (35.0-45.0); BG PH 7.461 (7.350-7.450); BG PO2 61.4 mmHg (75.0-100.0); BG SAMPLE SITE RIGHT RADIAL; BG TOTAL HEMOGLOBIN 8.7 g/dL (12.0-18.0); BG VENT MODE VENT - AC
[2022-11-15] MEDS: METHYLPREDNISOLONE SOD SUCC 40 MG/ML VIAL IV SCH (09:28)
[2022-11-15] MEDS: LEVETIRACETAM 500MG TABLET PO SCH ×2 (09:28→17:28)
[2022-11-15] MEDS: LAMOTRIGINE 25MG TABLET PO SCH (09:29)
[2022-11-15] MEDS: PANTOPRAZOLE SODIUM 40 MG/VIAL IV SCH ×2 (09:29→20:54)
[2022-11-15] MEDS ORDERED: PROPOFOL 200MG/20ML VIAL IV ONE (14:21)
[2022-11-15] MEDS: CEFEPIME 1,000 MG in DEXTROSE 5% WATER 50 ML IV SCH (17:28)
[2022-11-15] MEDS: AZITHROMYCIN 500 MG in DEXT 5% WATER 250 ML IV SCH (22:59)
[2022-11-16] VITALS (28 sets, daily range): BP systolic 90–154; BP diastolic 47–100
[2022-11-16] MEDS ORDERED: IOHEXOL-300 100 ML BOTTLE ONE (02:35)
[2022-11-16 05:45] LABS: BASOPHILS % 0.1 % (0.0-2.0); HEMATOCRIT. 22.7 % (36.0-48.0); HEMOGLOBIN. 7.6 g/dL (12.0-16.0); LYMPHOCYTES % 13.5 % (20.0-50.0); MEAN CORPUSCULAR HEMOGLOBIN 27.1 pg (28.0-32.0); MEAN CORPUSCULAR VOLUME 80.7 fL (81.0-99.0); MEAN PLATELET VOLUME 8.5 fl (7.4-10.4); NEUTROPHILS % 80.4 % (40.0-76.0); PLATELET 98 x1000/uL (130-400); RED BLOOD CELL COUNT 2.82 mill/uL (4.2-5.4); RED CELL DISTRIBUTION WIDTH 21.5 % (11.6-14.6)
[2022-11-16] MEDS ORDERED: POTASSIUM CHLORIDE 20MEQ/PACKET PO NR (06:45)
[2022-11-16] MEDS: BLOOD SUGAR DIAGNOSTIC STRIP TEST SCH (07:09)
[2022-11-16] MEDS: LACTULOSE 20G/30ML UDC PO SCH ×2 (07:14→09:03)
[2022-11-16] MEDS: FUROSEMIDE 40MG/4ML VIAL IVP SCH ×2 (07:17→17:45)
[2022-11-16] MEDS: LAMOTRIGINE 25MG TABLET PO SCH (09:01)
[2022-11-16] MEDS: LEVETIRACETAM 500MG TABLET PO SCH ×2 (09:01→17:45)
[2022-11-16] MEDS: PANTOPRAZOLE SODIUM 40 MG/VIAL IV SCH ×2 (09:01→21:36)
[2022-11-16] MEDS: METHYLPREDNISOLONE SOD SUCC 40 MG/ML VIAL IV SCH (09:01)
[2022-11-16 10:02] LABS: BG BASE EXCESS -1.2 mmol/L (-2.0-2.0); BG CARBOXYHEMOGLOBIN 0.2 % (0.5-1.5); BG DEOXYHEMOGLOBIN 7.3 % (0.0-5.0); BG FRACTION INSPIRED OXYGEN 35; BG HCO3 ACT 21.7 mmol/L (22.0-26.0); BG METHEMOGLOBIN 0.9 % (0.0-1.5); BG OXYGEN SATURATION 92.6 % (92.0-98.5); BG OXYHEMOGLOBIN 91.6 % (94.0-97.0); BG PCO2 29.1 mmHg (35.0-45.0); BG PH 7.491 (7.350-7.450); BG SAMPLE SITE LEFT RADIAL; BG TOTAL HEMOGLOBIN 8.2 g/dL (12.0-18.0); BG VENT MODE VENT - AC
[2022-11-16] MEDS: DEXT 5%/0.45% NACL 500ML 500 ML IV SCH (16:01)
[2022-11-16] MEDS: CEFEPIME 1,000 MG in DEXTROSE 5% WATER 50 ML IV SCH (17:45)
[2022-11-17] VITALS (42 sets, daily range): BP systolic 104–166; BP diastolic 56–122
[2022-11-17 05:58] LABS: HEMOGLOBIN. 7.9 g/dL (12.0-16.0); MEAN CORPUSCULAR HEMOGLOBIN 27.1 pg (28.0-32.0); MEAN CORPUSCULAR VOLUME 83.1 fL (81.0-99.0); MEAN PLATELET VOLUME 9.1 fl (7.4-10.4); PLATELET 111 x1000/uL (130-400); RED BLOOD CELL COUNT 2.89 mill/uL (4.2-5.4); RED CELL DISTRIBUTION WIDTH 21.6 % (11.6-14.6)
[2022-11-17 06:16] LABS: PHOSPHORUS 3.4 mg/dL (2.5-4.9)
[2022-11-17] MEDS: FUROSEMIDE 40MG/4ML VIAL IVP SCH ×2 (07:03→17:18)
[2022-11-17 07:32] LABS: PLATELET ESTIMATE SLIGHTLY DECREASED
[2022-11-17 08:54] LABS: BG BASE EXCESS -2.1 mmol/L (-2.0-2.0); BG CARBOXYHEMOGLOBIN 1.1 % (0.5-1.5); BG DEOXYHEMOGLOBIN 2.2 % (0.0-5.0); BG FRACTION INSPIRED OXYGEN 45; BG HCO3 ACT 22.7 mmol/L (22.0-26.0); BG METHEMOGLOBIN 0.3 % (0.0-1.5); BG OXYGEN SATURATION 97.8 % (92.0-98.5); BG OXYHEMOGLOBIN 96.4 % (94.0-97.0); BG PCO2 38.8 mmHg (35.0-45.0); BG PH 7.386 (7.350-7.450); BG PO2 106.6 mmHg (75.0-100.0); BG SAMPLE SITE RIGHT RADIAL; BG TOTAL HEMOGLOBIN 8.5 g/dL (12.0-18.0); BG VENT MODE VENT - CPAP
[2022-11-17] MEDS: LAMOTRIGINE 25MG TABLET PO SCH (09:23)
[2022-11-17] MEDS: PANTOPRAZOLE SODIUM 40 MG/VIAL IV SCH ×2 (09:23→22:26)
[2022-11-17] MEDS: FOLIC ACID 1MG TABLET PO SCH (09:23)
[2022-11-17] MEDS: LEVETIRACETAM 500MG TABLET PO SCH ×2 (09:23→17:18)
[2022-11-17] MEDS: LACTULOSE 20G/30ML UDC PO SCH (09:23)
[2022-11-17] MEDS: METHYLPREDNISOLONE SOD SUCC 40 MG/ML VIAL IV SCH (09:25)
[2022-11-17] MEDS: CEFEPIME 2,000 MG in DEXT 5% WATER 100 ML IV SCH ×2 (10:10→22:26)
[2022-11-17] MEDS: DEXT 5%/0.45% NACL 500ML 500 ML IV SCH (12:49)
[2022-11-18] VITALS (24 sets, daily range): BP systolic 97–169; BP diastolic 35–119
[2022-11-18] MEDS: FUROSEMIDE 40MG/4ML VIAL IVP SCH ×2 (07:00→16:52)
[2022-11-18] MEDS: DEXT 5%/0.45% NACL 500ML 500 ML IV SCH (08:08)
[2022-11-18 08:10] LABS: BASOPHILS % 0.1 % (0.0-2.0); EOSINOPHILS % 3.8 % (0.0-5.0); HEMATOCRIT. 26.3 % (36.0-48.0); HEMOGLOBIN. 8.6 g/dL (12.0-16.0); LYMPHOCYTES % 10.5 % (20.0-50.0); MEAN CORPUSCULAR VOLUME 82.4 fL (81.0-99.0); MEAN PLATELET VOLUME 8.4 fl (7.4-10.4); MONOCYTES % 6.5 % (2.0-8.0); NEUTROPHILS % 79.1 % (40.0-76.0); PLATELET 93 x1000/uL (130-400); RED BLOOD CELL COUNT 3.19 mill/uL (4.2-5.4); RED CELL DISTRIBUTION WIDTH 21.7 % (11.6-14.6)
[2022-11-18 08:15] LABS: CHLORIDE 105 mEq/L (98-107)
[2022-11-18] MEDS ORDERED: FOLIC ACID 1MG TABLET PO SCH (09:00)
[2022-11-18 09:21] LABS: BG BASE EXCESS 0.4 mmol/L (-2.0-2.0); BG CARBOXYHEMOGLOBIN 0.7 % (0.5-1.5); BG DEOXYHEMOGLOBIN 2.7 % (0.0-5.0); BG FRACTION INSPIRED OXYGEN 36; BG METHEMOGLOBIN 0.2 % (0.0-1.5); BG OXYGEN SATURATION 97.3 % (92.0-98.5); BG OXYHEMOGLOBIN 96.4 % (94.0-97.0); BG PCO2 40.4 mmHg (35.0-45.0); BG PO2 98.4 mmHg (75.0-100.0); BG SAMPLE SITE LEFT RADIAL; BG TOTAL HEMOGLOBIN 9.4 g/dL (12.0-18.0); BG VENT MODE NASAL CANNULA
[2022-11-18] MEDS: PANTOPRAZOLE SODIUM 40 MG/VIAL IV SCH ×2 (09:51→20:31)
[2022-11-18] MEDS: LACTULOSE 20G/30ML UDC PO SCH (09:51)
[2022-11-18] MEDS: METHYLPREDNISOLONE SOD SUCC 40 MG/ML VIAL IV SCH (09:51)
[2022-11-18] MEDS: LAMOTRIGINE 25MG TABLET PO SCH (09:52)
[2022-11-18] MEDS: LEVETIRACETAM 500MG TABLET PO SCH ×2 (09:52→16:52)
[2022-11-18] MEDS: CEFEPIME 2,000 MG in DEXT 5% WATER 100 ML IV SCH ×2 (09:52→22:13)
[2022-11-18] MEDS: FOLIC ACID 1MG TABLET PO SCH (09:52)
[2022-11-18] MEDS ORDERED: IPRATROPIUM/ALBUTEROL 0.5-3(2.5)MG/3ML NEB HHN PRN (12:15)
[2022-11-18] MEDS: DOCUSATE SODIUM 250MG CAPSULE PO SCH ×2 (12:36→16:52)
[2022-11-18] MEDS: GUAIFENESIN 600MG ER TABLET PO SCH (20:31)
[2022-11-18] MEDS: IPRATROPIUM/ALBUTEROL 0.5-3(2.5)MG/3ML NEB HHN SCH (20:42)
[2022-11-19] VITALS: BP 148/73
[2022-11-19] MEDS: IPRATROPIUM/ALBUTEROL 0.5-3(2.5)MG/3ML NEB HHN SCH ×3 (01:45→21:02)
[2022-11-19 04:00] VITALS: BP 156/69
[2022-11-19] MEDS: FUROSEMIDE 40MG/4ML VIAL IVP SCH ×2 (06:18→17:23)
[2022-11-19 06:25] LABS: EOSINOPHILS % 2.7 % (0.0-5.0); HEMATOCRIT. 24.7 % (36.0-48.0); HEMOGLOBIN. 8.1 g/dL (12.0-16.0); LYMPHOCYTES % 10.3 % (20.0-50.0); MEAN CORPUSCULAR HEMOGLOBIN 27.1 pg (28.0-32.0); MEAN CORPUSCULAR VOLUME 82.7 fL (81.0-99.0); MEAN PLATELET VOLUME 8.7 fl (7.4-10.4); MONOCYTES % 8.7 % (2.0-8.0); NEUTROPHILS % 78.3 % (40.0-76.0); PLATELET 97 x1000/uL (130-400); RED BLOOD CELL COUNT 2.99 mill/uL (4.2-5.4); RED CELL DISTRIBUTION WIDTH 21.9 % (11.6-14.6)
[2022-11-19 07:09] LABS: CHLORIDE 105 mEq/L (98-107)
[2022-11-19 08:00] VITALS: BP 139/66
[2022-11-19] MEDS: DOCUSATE SODIUM 250MG CAPSULE PO SCH ×2 (09:12→17:24)
[2022-11-19] MEDS: FOLIC ACID 1MG TABLET PO SCH (09:12)
[2022-11-19] MEDS: LAMOTRIGINE 25MG TABLET PO SCH (09:12)
[2022-11-19] MEDS: LACTULOSE 20G/30ML UDC PO SCH (09:12)
[2022-11-19] MEDS: METHYLPREDNISOLONE SOD SUCC 40 MG/ML VIAL IV SCH (09:12)
[2022-11-19] MEDS: GUAIFENESIN 600MG ER TABLET PO SCH ×2 (09:12→21:43)
[2022-11-19] MEDS: CEFEPIME 2,000 MG in DEXT 5% WATER 100 ML IV SCH ×2 (09:12→21:42)
[2022-11-19] MEDS: LEVETIRACETAM 500MG TABLET PO SCH ×2 (09:12→17:24)
[2022-11-19] MEDS: PANTOPRAZOLE SODIUM 40 MG/VIAL IV SCH ×2 (09:12→21:43)
[2022-11-19 12:00] VITALS: BP 144/76
[2022-11-19 16:00] VITALS: BP 141/82
[2022-11-19 20:00] VITALS: BP_SYST 130; BP_SYST 138; BP_DIAS 67; BP_DIAS 73
[2022-11-19] MEDS: ARIPIPRAZOLE 5MG TABLET PO SCH (21:48)
[2022-11-20] VITALS: BP 124/57
[2022-11-20] MEDS: IPRATROPIUM/ALBUTEROL 0.5-3(2.5)MG/3ML NEB HHN SCH ×4 (01:49→20:37)
[2022-11-20 04:00] VITALS: BP 105/57
[2022-11-20] MEDS: FUROSEMIDE 40MG/4ML VIAL IVP SCH ×2 (06:01→16:51)
[2022-11-20 08:00] VITALS: BP 160/77
[2022-11-20] MEDS: LAMOTRIGINE 25MG TABLET PO SCH (08:30)
[2022-11-20] MEDS: GUAIFENESIN 600MG ER TABLET PO SCH ×2 (08:30→20:46)
[2022-11-20] MEDS: CEFEPIME 2,000 MG in DEXT 5% WATER 100 ML IV SCH ×2 (08:30→20:45)
[2022-11-20] MEDS: DOCUSATE SODIUM 250MG CAPSULE PO SCH ×2 (08:30→16:51)
[2022-11-20] MEDS: PANTOPRAZOLE SODIUM 40 MG/VIAL IV SCH ×2 (08:30→20:46)
[2022-11-20] MEDS: LACTULOSE 20G/30ML UDC PO SCH (08:30)
[2022-11-20] MEDS: LEVETIRACETAM 500MG TABLET PO SCH ×2 (08:31→16:51)
[2022-11-20] MEDS: PREDNISONE 20MG TABLET PO SCH (08:31)
[2022-11-20] MEDS: FOLIC ACID 1MG TABLET PO SCH (08:31)
[2022-11-20 15:51] LABS: BG BASE EXCESS 2.3 mmol/L (-2.0-2.0); BG CARBOXYHEMOGLOBIN 1.5 % (0.5-1.5); BG FRACTION INSPIRED OXYGEN 21; BG HCO3 ACT 26.9 mmol/L (22.0-26.0); BG METHEMOGLOBIN 0.3 % (0.0-1.5); BG OXYGEN SATURATION 87.8 % (92.0-98.5); BG OXYHEMOGLOBIN 86.2 % (94.0-97.0); BG PCO2 41.4 mmHg (35.0-45.0); BG PO2 53.1 mmHg (75.0-100.0); BG SAMPLE SITE LEFT RADIAL; BG TOTAL HEMOGLOBIN 9.7 g/dL (12.0-18.0); BG VENT MODE ROOM AIR
[2022-11-20 16:00] VITALS: BP 166/57
[2022-11-20] MEDS: GABAPENTIN 400MG CAPSULE PO SCH ×3 (16:51→23:00)
[2022-11-20 20:00] VITALS: BP 84/36
[2022-11-20] MEDS: ARIPIPRAZOLE 5MG TABLET PO SCH (20:47)
[2022-11-21] VITALS: BP 90/42
[2022-11-21] MEDS: IPRATROPIUM/ALBUTEROL 0.5-3(2.5)MG/3ML NEB HHN SCH ×3 (02:13→14:25)
[2022-11-21 04:00] VITALS: BP 87/43
[2022-11-21] MEDS: GABAPENTIN 400MG CAPSULE PO SCH ×2 (06:36→13:16)
[2022-11-21] MEDS: FUROSEMIDE 40MG/4ML VIAL IVP SCH (06:36)
[2022-11-21] MEDS: LACTULOSE 20G/30ML UDC PO SCH (09:00)
[2022-11-21] MEDS ORDERED: FUROSEMIDE 40MG/4ML VIAL IVP SCH (09:00)
[2022-11-21] MEDS: PANTOPRAZOLE SODIUM 40 MG/VIAL IV SCH (09:03)
[2022-11-21] MEDS: LEVETIRACETAM 500MG TABLET PO SCH ×2 (09:03→16:24)
[2022-11-21] MEDS: GUAIFENESIN 600MG ER TABLET PO SCH (09:03)
[2022-11-21] MEDS: PREDNISONE 20MG TABLET PO SCH (09:03)
[2022-11-21] MEDS: LAMOTRIGINE 25MG TABLET PO SCH (09:03)
[2022-11-21] MEDS: DOCUSATE SODIUM 250MG CAPSULE PO SCH ×2 (09:04→16:24)
[2022-11-21] MEDS: FOLIC ACID 1MG TABLET PO SCH (09:04)
[2022-11-21 12:00] VITALS: BP 92/51
[2022-11-21 12:17] LABS: HEMATOCRIT. 24.9 % (36.0-48.0); HEMOGLOBIN. 7.8 g/dL (12.0-16.0); MEAN CORPUSCULAR HEMOGLOBIN 26.8 pg (28.0-32.0); MEAN CORPUSCULAR VOLUME 85.3 fL (81.0-99.0); MEAN PLATELET VOLUME 9.4 fl (7.4-10.4); PLATELET 182 x1000/uL (130-400); RED BLOOD CELL COUNT 2.92 mill/uL (4.2-5.4); RED CELL DISTRIBUTION WIDTH 24.6 % (11.6-14.6)
[2022-11-21] MEDS ORDERED: SODIUM CHLORIDE 0.9% 250 ML IV ONE (12:30)
[2022-11-21] MEDS: MIDODRINE HCL 5MG TABLET PO SCH ×2 (13:17→16:25)
[2022-11-21 13:36] VITALS: BP 92/51
[2022-11-21 16:00] VITALS: BP 95/52
[2022-11-21 17:41] LABS: PLATELET ESTIMATE NORMAL
[2022-11-22] MEDS ORDERED: FUROSEMIDE 40MG TABLET PO SCH (09:00)
[2022-11-22] MEDS ORDERED: SODIUM CHLORIDE 0.9% 250 ML IV SCH (12:30)
== END 2022-11-21 17:35 | disposition home health service (06) | DRG 720 ==
LOC: ER 23:10 → CANBEDREQ 11-02 04:37 → CVICU 11-02 05:24 → EDBEDREQ 11-02 05:44 → EDBEDREQSVC 11-02 09:04 → 6EST 11-08 17:06 → 7WST 11-10 20:30 → 5EST 11-11 13:59 → CVICU 11-11 16:29 → 7EST 11-18 11:46
PROVIDERS: ADMIT Internal Medicine; ATTEND Internal Medicine
PROC: 5A1955Z Respiratory Ventilation, Greater than 96 Consecutive Hours (ICD-10-PCS; principal; 2022-11-02)
PROC: 0BH17EZ Insertion of Endotracheal Airway into Trachea, Via Natural or Artificial Opening (ICD-10-PCS; 2022-11-02)
PROC: 02HV33Z Insertion of Infusion Device into Superior Vena Cava, Percutaneous Approach (ICD-10-PCS; 2022-11-03)
PROC: B548ZZA Ultrasonography of Superior Vena Cava, Guidance (ICD-10-PCS; 2022-11-03)
PROC: 4A00X4Z Measurement of Central Nervous Electrical Activity, External Approach (ICD-10-PCS; 2022-11-04)
PROC: 5A1955Z Respiratory Ventilation, Greater than 96 Consecutive Hours (ICD-10-PCS; 2022-11-11)
PROC: 0BH17EZ Insertion of Endotracheal Airway into Trachea, Via Natural or Artificial Opening (ICD-10-PCS; 2022-11-11)
PROC: 5A09357 Assistance with Respiratory Ventilation, Less than 24 Consecutive Hours, Continuous Positive Airway Pressure (ICD-10-PCS; 2022-11-11)
PROC: 30233N1 Transfusion of Nonautologous Red Blood Cells into Peripheral Vein, Percutaneous Approach (ICD-10-PCS; 2022-11-12)
PROC: 0DB78ZX Excision of Stomach, Pylorus, Via Natural or Artificial Opening Endoscopic, Diagnostic (ICD-10-PCS; 2022-11-15)
PROC: 5A09357 Assistance with Respiratory Ventilation, Less than 24 Consecutive Hours, Continuous Positive Airway Pressure (ICD-10-PCS; 2022-11-17)
DX: A41.59 Other Gram-negative sepsis (principal); R65.21 Severe sepsis with septic shock; G93.41 Metabolic encephalopathy; E43 Unspecified severe protein-calorie malnutrition; J15.0 Pneumonia due to Klebsiella pneumoniae; J96.01 Acute respiratory failure with hypoxia; J96.02 Acute respiratory failure with hypercapnia; J44.0 Chronic obstructive pulmonary disease with (acute) lower respiratory infection; I50.33 Acute on chronic diastolic (congestive) heart failure; L89.154 Pressure ulcer of sacral region, stage 4; J15.6 Pneumonia due to other Gram-negative bacteria; I69.354 Hemiplegia and hemiparesis following cerebral infarction affecting left non-dominant side; I11.0 Hypertensive heart disease with heart failure; E66.01 Morbid (severe) obesity due to excess calories; G51.0 Bell's palsy; J98.11 Atelectasis; Z20.822 Contact with and (suspected) exposure to COVID-19; I16.0 Hypertensive urgency; I07.1 Rheumatic tricuspid insufficiency; L98.492 Non-pressure chronic ulcer of skin of other sites with fat layer exposed; E87.29 Other acidosis; E87.5 Hyperkalemia; E87.6 Hypokalemia; R73.9 Hyperglycemia, unspecified; D50.9 Iron deficiency anemia, unspecified; F31.30 Bipolar disorder, current episode depressed, mild or moderate severity, unspecified; R29.6 Repeated falls; K29.70 Gastritis, unspecified, without bleeding; K56.41 Fecal impaction; N28.1 Cyst of kidney, acquired; N28.89 Other specified disorders of kidney and ureter; N17.9 Acute kidney failure, unspecified; Z90.710 Acquired absence of both cervix and uterus; Z99.3 Dependence on wheelchair; Z74.01 Bed confinement status; Z68.41 Body mass index [BMI] 40.0-44.9, adult; Z68.38 Body mass index [BMI] 38.0-38.9, adult
CPT/HCPCS: 31500; 36415; 36573; 36600; 70496; 70498; 70551; 71045; 71275; 74176; 74177; 76604; 76700; 76770; 80048; 80053; 80305; 80320; 81003; 82040; 82140; 82270; 82375; 82607; 82728; 82746; 82805; 82962; 83036; 83540; 83550; 83605; 83735; 84100; 84134; 84145; 84484; 85014; 85018; 85025; 85027; 85044; 85049; 85384; 86850; 86900; 86920; 87070; 87077; 87186; 87426; 88305; 92610; 93005; 94002; 94003; 94640; 94660; 94667; 95816; 97161; 97164; 97166; 99291; A6261; C1725; C1769; C9113; C9803; J0456; J0461; J0692; J1265; J1650; J1940; J1953; J2250; J2270; J2405; J2543; J2704; J2765; J2920; J3370; J3480; J3490; J7050; J7060; J7512; J7608; P9016; P9047; Q9967; A4315; G0480